=== PATIENT | female | born 1980 | race Two or more races ===

== ENCOUNTER 2016-07-08 01:26 | Emergency (ER) | payer OTHER ==
[2016-07-08] MEDS ORDERED: traMADol 50 MG TAB As Ordered ONE (01:54)
[2016-07-08] MEDS ORDERED: AMOXICILLIN 500 MG CAP As Ordered ONE (01:55)
--- NOTE | 2016-07-08 02:23 | EDDOCDS ---
Physician Documentation [facility] Name: Shanae Sutton Age: 35 yrs Sex: Female : 1980 Arrival Date: 07/08/2016 Time: 01:26 Bed I2 / M2 Private MD: Disposition: 07/08/16 01:53 Discharged to Home/Self Care. Impression: Periapical abscess without sinus. - Condition is Stable. - Discharge Instructions: Dental Abscess. - Prescriptions for Amoxicillin 500 mg Oral Capsule - take 1 capsule by ORAL route every 8 hours for 10 days; 30 tablet. Ibuprofen 600 mg Oral Tablet - take 1 tablet by ORAL route every 6 hours As needed take with food; 30 tablet. Tramadol 50 mg Oral Tablet - take 1 tablet by ORAL route 4 times per day As needed MDD: 4 tabs; 6 tablet. - Medication Reconciliation, Local Pharmacy Hours form. - Follow up: Your, Dentist; When: 1 - 2 days; Reason: Recheck today's complaints, Continuance of care. - Problem is new. - Symptoms have improved. Historical: - Allergies: Cats; Dogs; No known drug Allergies; - Home Meds: 1. Motrin Oral Unknown (Last dose: 07/08/2016 00:00) 2. Effexor 75 mg Oral tab 1 tab nightly - PMHx: Anxiety; - PSHx: Dental work; - Social history: Smoking status: Patient states was never smoker of tobacco. No barriers to communication noted, The patient speaks fluent Pashto, Speaks appropriately for age. - Family history: Not pertinent. - : The pt / caregiver states he / she is not on anticoagulants. Home medication list is obtained from the patient. - Exposure Risk Screening:: None identified. 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 3 in. (160.02 cm) (R); 02:11 BP 113 / 77; Pulse 80; Resp 18; Temp 98.2; Pulse Ox 98% ; Pain 8/10; mlc 01:29 Body Mass Index 21.61 (55.34 kg, 160.02 cm) ld5 MDM: 01:47 Financial registration complete. pm4 01:53 traMADol 50mg- 4 pack 1 packets PO Per protocol; Dispense with patient. Take per ck7 package instructions. ordered. 01:53 Amoxicillin 500 mg PO once ordered. ck7 01:54 [facility] Payment Agreement was scanned into [employer] and attached to record. pm4 Administered Medications: 02:11 Drug: traMADol 50mg- 4 pack 1 packets [tramadol 50 mg tablet (1 tabs)] {Co-Signature: [facility] rw1 (Jorge Platt LPN).} Route: PO; 02:11 Follow up: Response: Med's dispensed home [facility] 02:11 Drug: Amoxicillin 500 mg [amoxicillin 500 mg capsule (1 caps)] Route: PO; [facility] 02:11 Follow up: Response: Pt left department before re-evaluation is appropriate [facility] Signatures: Helena Castrejon RN RN ld5 Reza Partida, RPA-C RPA-Cck7 Aylin Munoz RN RN [facility] Js Joiner, Reg Reg pm4 Jorge Platt LPN rw1 The chart was reviewed and I authenticate all verbal orders and agree with the evaluation and treatment provided.Attachments: 01:54 [facility] Payment Agreement pm4 MTDD
--- NOTE | 2016-07-08 02:23 | EDDOCDS ---
Nurse's Notes [facility] Name: Shanae Sutton Age: 35 yrs Sex: Female : 1980 Arrival Date: 07/08/2016 Time: 01:26 Bed I2 / M2 Private MD: Diagnosis: Periapical abscess without sinus Presentation: 07/08 01:30 Presenting complaint: Patient states: Pt had a root canal about a month ago. Pt started ld5 to same area approximately 2 days ago. Presents to ER with increasing pain. Pt tried Motrin with no relief. Adult Sepsis Screening: The patient does not have new or worsening altered mentation. Patient's respiratory rate is less than 22. Systolic blood pressure is greater than 100. Patient has a qSOFA score of 0- Negative Sepsis Screen. Suicide/Homicide risk assessment- the patient denies having any suicidal and/or homicidal ideations and does not present with any other emotional, behavioral or mental health complaints. Status: The patient is a dependent. Transition of care: patient was not received from another setting of care. 01:30 Acuity: ERIKA Level 4 ld5 01:30 Method Of Arrival: Walkin/Carried/Asstd ld5 Triage Assessment: 01:33 General: Appears in no apparent distress. Pain: Location: lower left third molar and ld5 lower left second molar Pain currently is 9 out of 10 on a pain scale. HIV screening NA for this visit Offered previously. Neurological: Level of Consciousness is awake, alert. EENT: Reports pain in mouth. 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 Motrin Oral Unknown (Last dose: 07/08/2016 00:00) 2. Effexor 75 mg Oral tab 1 tab nightly - PMHx: Anxiety; - PSHx: Dental work; - Social history: Smoking status: Patient states was never smoker of tobacco. No barriers to communication noted, The patient speaks fluent Malay, Speaks appropriately for age. - Family history: Not pertinent. - : The pt / caregiver states he / she is not on anticoagulants. Home medication list is obtained from the patient. - Exposure Risk Screening:: None identified. Screenin:11 Screening information is obtained from the patient. Fall risk: No risks identified. mlc Assistance ADL's: requires no assistance with activities of daily living. Abuse/DV Screen: The patient / caregiver reports he/she is: not in a situation that causes fear, pain or injury. Nutritional screening: No deficits noted. Advance Directives: Currently, there is no health care proxy. home support is adequate. Assessment: 02:11 General: Appears in no apparent distress, comfortable, Behavior is cooperative. Pain: [facility] Pain currently is 8 out of 10 on a pain scale. Neurological: Level of Consciousness is awake, alert, Oriented to person, place, time. Respiratory: Airway is patent Respiratory effort is even, unlabored, Respiratory pattern is regular. Derm: Skin is pink, warm & dry. Vital Signs: 01:29 BP 128 / 69; Pulse 71; Resp 16; Temp 97.7(O); Pulse Ox 99% on R/A; Weight 55.34 kg (R); ld5 Height 5 ft. 3 in. (160.02 cm) (R); 02:11 BP 113 / 77; Pulse 80; Resp 18; Temp 98.2; Pulse Ox 98% ; Pain 8/10; mlc 01:29 Body Mass Index 21.61 (55.34 kg, 160.02 cm) ld5 Vitals: 01:29 Log In Time: July 08, 2016 at 01:27. ld5 ED Course: 01:27 Patient visited by Nevin Antony Reg. hs2 01:27 Patient moved to Waiting hs2 01:31 Triage Initiated ld5 01:35 Patient visited by Helena Castrejon RN. ld5 01:35 Reza Partida RPA-C is PHCP. ck7 01:35 Sophie Mcgrath MD is Attending Physician. ck7 01:35 Patient visited by Reza Partida RPA-C. ck7 01:35 Patient moved to I2 / M2 ld5 01:53 Your, Dentist is Referral Physician. ck7 01:54 Patient name changed from Shanae\S\\S\Carvalheira\S\ to Shanae\S\Devi\S\Carvalheira. EDMS 01:54 [facility] Payment Agreement was scanned into [employer] and attached to record. pm4 02:11 The patient / caregiver is instructed regarding the plan of care and ED course. mlc 02:11 No IV's were initiated during this patient's visit. No procedures done that require mlc assistance. Administered Medications: 02:11 Drug: traMADol 50mg- 4 pack 1 packets [tramadol 50 mg tablet (1 tabs)] {Co-Signature: [facility] rw1 (Jorge Platt LPN).} Route: PO; 02:11 Follow up: Response: Med's dispensed home [facility] 02:11 Drug: Amoxicillin 500 mg [amoxicillin 500 mg capsule (1 caps)] Route: PO; [facility] 02:11 Follow up: Response: Pt left department before re-evaluation is appropriate mlc Order Results: There are currently no results for this order. Outcome: 01:53 Discharge ordered by Provider. ck7 02:11 Discharge Assessment: Patient awake, alert and oriented x 3. No cognitive and/or mlc functional deficits noted. Patient verbalized understanding of disposition instructions. patient administered narcotics - no. The following High Risk Discharge criteria are identified: None. Discharged to home ambulatory. Condition: good Condition: stable. Discharge instructions given to patient, Instructed on discharge instructions, follow up and referral plans. medication usage, no driving heavy equipment, Demonstrated understanding of instructions, medications, Pt was receptive of discharge instructions/ teaching. Prescriptions given X 3. No special radiology studies were completed. Property sent home with patient. 02:21 Patient left the ED. [facility] Signatures: Dispatcher [employer] EDHelena Gould,SHERIE REHMAN ld5 Reza Partida, RPA-C RPA-Cck7 Aylin Munoz RN RN mlc Stanton, Hillary, Reg Reg hs2 Js Joiner, Reg Reg pm4 Jorge Platt LPN rw1 MTDD
--- NOTE | 2016-07-10 03:23 | EDDOCDS ---
Physician Documentation [facility] Name: Shanae Sutton Age: 35 yrs Sex: Female : 1980 Arrival Date: 07/08/2016 Time: 01:26 Bed I2 / M2 Private MD: Disposition: 07/08/16 01:53 Discharged to Home/Self Care. Impression: Periapical abscess without sinus. - Condition is Stable. - Discharge Instructions: Dental Abscess. - Prescriptions for Amoxicillin 500 mg Oral Capsule - take 1 capsule by ORAL route every 8 hours for 10 days; 30 tablet. Ibuprofen 600 mg Oral Tablet - take 1 tablet by ORAL route every 6 hours As needed take with food; 30 tablet. Tramadol 50 mg Oral Tablet - take 1 tablet by ORAL route 4 times per day As needed MDD: 4 tabs; 6 tablet. - Medication Reconciliation, Local Pharmacy Hours form. - Follow up: Your, Dentist; When: 1 - 2 days; Reason: Recheck today's complaints, Continuance of care. - Problem is new. - Symptoms have improved. Historical: - Allergies: Cats; Dogs; No known drug Allergies; - Home Meds: 1. Motrin Oral Unknown (Last dose: 07/08/2016 00:00) 2. Effexor 75 mg Oral tab 1 tab nightly - PMHx: Anxiety; - PSHx: Dental work; - Social history: Smoking status: Patient states was never smoker of tobacco. No barriers to communication noted, The patient speaks fluent Slovak, Speaks appropriately for age. - Family history: Not pertinent. - : The pt / caregiver states he / she is not on anticoagulants. Home medication list is obtained from the patient. - Exposure Risk Screening:: None identified. 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 3 in. (160.02 cm) (R); 02:11 BP 113 / 77; Pulse 80; Resp 18; Temp 98.2; Pulse Ox 98% ; Pain 8/10; mlc 01:29 Body Mass Index 21.61 (55.34 kg, 160.02 cm) ld5 MDM: 01:47 Financial registration complete. pm4 01:53 traMADol 50mg- 4 pack 1 packets PO Per protocol; Dispense with patient. Take per ck7 package instructions. ordered. 01:53 Amoxicillin 500 mg PO once ordered. ck7 01:54 [facility] Payment Agreement was scanned into [employer] and attached to record. pm4 14:58 T-Sheet-- Draft Copy was scanned into [employer] and attached to record. gb Administered Medications: 02:11 Drug: traMADol 50mg- 4 pack 1 packets [tramadol 50 mg tablet (1 tabs)] {Co-Signature: [facility] rw1 (Jorge Platt LPN).} Route: PO; 02:11 Follow up: Response: Med's dispensed home [facility] 02:11 Drug: Amoxicillin 500 mg [amoxicillin 500 mg capsule (1 caps)] Route: PO; [facility] 02:11 Follow up: Response: Pt left department before re-evaluation is appropriate [facility] Signatures: Gely Ware, Reg Reg gb Helena Castrejon RN RN ld5 Reza Partida, RPA-C RPA-Cck7 Aylin Munoz RN RN mlc Js Joiner, Reg Reg pm4 Jorge Platt LPN rw1 The chart was reviewed and I authenticate all verbal orders and agree with the evaluation and treatment provided.Attachments: 01:54 [facility] Payment Agreement pm4 14:58 T-Sheet-- Draft Copy gb Chart Complete MTDD
--- NOTE | 2016-07-10 03:23 | EDDOCDS ---
Nurse's Notes [facility] Name: Shanae Sutton Age: 35 yrs Sex: Female : 1980 Arrival Date: 07/08/2016 Time: 01:26 Bed I2 / M2 Private MD: Diagnosis: Periapical abscess without sinus Presentation: 07/08 01:30 Presenting complaint: Patient states: Pt had a root canal about a month ago. Pt started ld5 to same area approximately 2 days ago. Presents to ER with increasing pain. Pt tried Motrin with no relief. Adult Sepsis Screening: The patient does not have new or worsening altered mentation. Patient's respiratory rate is less than 22. Systolic blood pressure is greater than 100. Patient has a qSOFA score of 0- Negative Sepsis Screen. Suicide/Homicide risk assessment- the patient denies having any suicidal and/or homicidal ideations and does not present with any other emotional, behavioral or mental health complaints. Status: The patient is a dependent. Transition of care: patient was not received from another setting of care. 01:30 Acuity: ERIKA Level 4 ld5 01:30 Method Of Arrival: Walkin/Carried/Asstd ld5 Triage Assessment: 01:33 General: Appears in no apparent distress. Pain: Location: lower left third molar and ld5 lower left second molar Pain currently is 9 out of 10 on a pain scale. HIV screening NA for this visit Offered previously. Neurological: Level of Consciousness is awake, alert. EENT: Reports pain in mouth. 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 Motrin Oral Unknown (Last dose: 07/08/2016 00:00) 2. Effexor 75 mg Oral tab 1 tab nightly - PMHx: Anxiety; - PSHx: Dental work; - Social history: Smoking status: Patient states was never smoker of tobacco. No barriers to communication noted, The patient speaks fluent Azeri, Speaks appropriately for age. - Family history: Not pertinent. - : The pt / caregiver states he / she is not on anticoagulants. Home medication list is obtained from the patient. - Exposure Risk Screening:: None identified. Screenin:11 Screening information is obtained from the patient. Fall risk: No risks identified. mlc Assistance ADL's: requires no assistance with activities of daily living. Abuse/DV Screen: The patient / caregiver reports he/she is: not in a situation that causes fear, pain or injury. Nutritional screening: No deficits noted. Advance Directives: Currently, there is no health care proxy. home support is adequate. Assessment: 02:11 General: Appears in no apparent distress, comfortable, Behavior is cooperative. Pain: [facility] Pain currently is 8 out of 10 on a pain scale. Neurological: Level of Consciousness is awake, alert, Oriented to person, place, time. Respiratory: Airway is patent Respiratory effort is even, unlabored, Respiratory pattern is regular. Derm: Skin is pink, warm & dry. Vital Signs: 01:29 BP 128 / 69; Pulse 71; Resp 16; Temp 97.7(O); Pulse Ox 99% on R/A; Weight 55.34 kg (R); ld5 Height 5 ft. 3 in. (160.02 cm) (R); 02:11 BP 113 / 77; Pulse 80; Resp 18; Temp 98.2; Pulse Ox 98% ; Pain 8/10; mlc 01:29 Body Mass Index 21.61 (55.34 kg, 160.02 cm) ld5 Vitals: 01:29 Log In Time: July 08, 2016 at 01:27. ld5 ED Course: 01:27 Patient visited by Nevin Antony Reg. hs2 01:27 Patient moved to Waiting hs2 01:31 Triage Initiated ld5 01:35 Patient visited by Helena Castrejon RN. ld5 01:35 Reza Partida RPA-C is PHCP. ck7 01:35 Sophie Mcgrath MD is Attending Physician. ck7 01:35 Patient visited by Reza Partida RPA-C. ck7 01:35 Patient moved to I2 / M2 ld5 01:53 Your, Dentist is Referral Physician. ck7 01:54 Patient name changed from Shanae\S\\S\Carvalheira\S\ to Shanae\S\Devi\S\Carvalheira. EDMS 01:54 [facility] [place] Payment Agreement was scanned into [employer] and attached to record. pm4 02:11 The patient / caregiver is instructed regarding the plan of care and ED course. mlc 02:11 No IV's were initiated during this patient's visit. No procedures done that require mlc assistance. 14:58 T-Sheet-- Draft Copy was scanned into [employer] and attached to record. gb Administered Medications: 02:11 Drug: traMADol 50mg- 4 pack 1 packets [tramadol 50 mg tablet (1 tabs)] {Co-Signature: navneet rw1 (Jorge Platt LPN).} Route: PO; 02:11 Follow up: Response: Med's dispensed [place] [facility] 02:11 Drug: Amoxicillin 500 mg [amoxicillin 500 mg capsule (1 caps)] Route: PO; [facility] 02:11 Follow up: Response: Pt left department before re-evaluation is appropriate mlc Order Results: There are currently no results for this order. Outcome: 01:53 Discharge ordered by Provider. ck7 02:11 Discharge Assessment: Patient awake, alert and oriented x 3. No cognitive and/or mlc functional deficits noted. Patient verbalized understanding of disposition instructions. patient administered narcotics - no. The following High Risk Discharge criteria are identified: None. Discharged to home ambulatory. Condition: good Condition: stable. Discharge instructions given to patient, Instructed on discharge instructions, follow up and referral plans. medication usage, no driving heavy equipment, Demonstrated understanding of instructions, medications, Pt was receptive of discharge instructions/ teaching. Prescriptions given X 3. No special radiology studies were completed. Property sent home with patient. 02:21 Patient left the ED. [facility] Signatures: [facility] Gely Ware, Reg Reg gb Helena Castrejon RN RN ld5 Reza Partida, RPA-C RPA-Cck7 Aylin Munoz RN RN mlc Stanton, Hillary, Reg Reg hs2 Js Joiner, Reg Reg pm4 Jorge Platt LPN rw1 Chart Complete MTDD
--- NOTE | 2016-07-10 03:23 | EDDOCDS ---
Physician Documentation [facility] Name: Shanae Sutton Age: 35 yrs Sex: Female : 1980 Arrival Date: 07/08/2016 Time: 01:26 Bed I2 / M2 Private MD: Disposition: 07/08/16 01:53 Discharged to Home/Self Care. Impression: Periapical abscess without sinus. - Condition is Stable. - Discharge Instructions: Dental Abscess. - Prescriptions for Amoxicillin 500 mg Oral Capsule - take 1 capsule by ORAL route every 8 hours for 10 days; 30 tablet. Ibuprofen 600 mg Oral Tablet - take 1 tablet by ORAL route every 6 hours As needed take with food; 30 tablet. Tramadol 50 mg Oral Tablet - take 1 tablet by ORAL route 4 times per day As needed MDD: 4 tabs; 6 tablet. - Medication Reconciliation, Local Pharmacy Hours form. - Follow up: Your, Dentist; When: 1 - 2 days; Reason: Recheck today's complaints, Continuance of care. - Problem is new. - Symptoms have improved. Historical: - Allergies: Cats; Dogs; No known drug Allergies; - Home Meds: 1. Motrin Oral Unknown (Last dose: 07/08/2016 00:00) 2. Effexor 75 mg Oral tab 1 tab nightly - PMHx: Anxiety; - PSHx: Dental work; - Social history: Smoking status: Patient states was never smoker of tobacco. No barriers to communication noted, The patient speaks fluent Khmer, Speaks appropriately for age. - Family history: Not pertinent. - : The pt / caregiver states he / she is not on anticoagulants. Home medication list is obtained from the patient. - Exposure Risk Screening:: None identified. 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 3 in. (160.02 cm) (R); 02:11 BP 113 / 77; Pulse 80; Resp 18; Temp 98.2; Pulse Ox 98% ; Pain 8/10; mlc 01:29 Body Mass Index 21.61 (55.34 kg, 160.02 cm) ld5 MDM: 01:47 Financial registration complete. pm4 01:53 traMADol 50mg- 4 pack 1 packets PO Per protocol; Dispense with patient. Take per ck7 package instructions. ordered. 01:53 Amoxicillin 500 mg PO once ordered. ck7 01:54 [facility] Payment Agreement was scanned into [employer] and attached to record. pm4 14:58 T-Sheet-- Draft Copy was scanned into [employer] and attached to record. gb Administered Medications: 02:11 Drug: traMADol 50mg- 4 pack 1 packets [tramadol 50 mg tablet (1 tabs)] {Co-Signature: [facility] [place] [place] rw1 (Jorge Platt LPN).} Route: PO; 02:11 Follow up: Response: Med's dispensed home [facility] [place] [place] 02:11 Drug: Amoxicillin 500 mg [amoxicillin 500 mg capsule (1 caps)] Route: PO; [facility] [place] [place] 02:11 Follow up: Response: Pt left department before re-evaluation is appropriate [facility] [place] [place] Signatures: Gely Ware, Reg Reg gb Helena Castrejon RN RN ld5 Reza Partida, RPA-C RPA-Cck7 Aylin Munoz RN RN mlc Js Joiner, Reg Reg pm4 Jorge Platt LPN rw1 The chart was reviewed and I authenticate all verbal orders and agree with the evaluation and treatment provided.Attachments: 01:54 [facility] Payment Agreement pm4 14:58 T-Sheet-- Draft Copy gb Chart Complete MTDD
== END 2016-07-08 02:21 | disposition home or self-care (01) ==
LOC: M ED 01:26
DX: K04.7 Periapical abscess without sinus (principal); F41.9 Anxiety disorder, unspecified; Z79.899 Other long term (current) drug therapy; J30.81 Allergic rhinitis due to animal (cat) (dog) hair and dander

== ENCOUNTER 2016-07-08 06:54 | Emergency (ER) | payer OTHER ==
--- NOTE | 2016-07-08 07:37 | EDDOCDS ---
Physician Documentation [facility] Name: Shanae Sutton Age: 35 yrs Sex: Female : 1980 Arrival Date: 07/08/2016 Time: 06:54 Bed I2 / M2 Private MD: Disposition: 07/08/16 07:30 Discharged to Home/Self Care. Impression: Dental procedure status - post procedural pain. - Condition is Stable. - Discharge Instructions: Dental Pain, [id number]. - Medication Reconciliation, Local Pharmacy Hours form. - Follow up: Your, Dentist; When: Call to arrange an appointment; Reason: Further diagnostic work-up, Recheck today's complaints, Continuance of care. - Problem is an ongoing problem. - Symptoms are unchanged. Historical: - Allergies: cats; dogs; - Home Meds: 1. Effexor 75 mg Oral tab 1 tab nightly 2. tramadol 50 mg Oral tab 1 tab every 6 hours (Last dose: 07/08/2016 03:00) 3. Motrin Oral Unknown - PMHx: Anxiety; - PSHx: Dental work; - Social history: Smoking status: Patient states was never smoker of tobacco. No barriers to communication noted, The patient speaks fluent Welsh. - Family history: Not pertinent. - : The pt / caregiver states he / she is not on anticoagulants. Home medication list is obtained from the patient. - Exposure Risk Screening:: None identified. 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 3 in. (160.02 cm); Pain 10/10; 07:04 Body Mass Index 21.61 (55.34 kg, 160.02 cm) mlc Signatures: Gerald Lai,RN RN Chava Martino PA PA btw Booth, Mandy,RN RN [facility] [place] MTDD
--- NOTE | 2016-07-08 07:37 | EDDOCDS ---
Nurse's Notes [facility] Name: Shanae Sutton Age: 35 yrs Sex: Female : 1980 Arrival Date: 07/08/2016 Time: 06:54 Bed I2 / M2 Private MD: Diagnosis: Dental procedure status-post procedural pain Presentation: 07/08 07:02 Presenting complaint: Patient states: pt was seen here last night for toothache. pt mlc states prescribed medication did not relieve the pain. pt reports increase in pain. Adult Sepsis Screening: The patient does not have new or worsening altered mentation. Patient's respiratory rate is less than 22. Systolic blood pressure is greater than 100. Patient has a qSOFA score of 0- Negative Sepsis Screen. Suicide/Homicide risk assessment- the patient denies having any suicidal and/or homicidal ideations and does not present with any other emotional, behavioral or mental health complaints. Status: The patient is a dependent. Transition of care: patient was not received from another setting of care. 07:02 Acuity: ERIKA Level 5 [facility] 07:02 Method Of Arrival: Walkin/Carried/Asstd mlc Triage Assessment: 07:04 General: Appears in no apparent distress, uncomfortable, Behavior is cooperative, mlc crying. Pain: Location: lower left third molar, lower left second molar and lower left first molar Pain currently is 10 out of 10 on a pain scale. HIV screening NA for this visit Offered previously. The patient is triaged at the bedside. See Assessment in Nurses Notes section of ED record. Neurological: Level of Consciousness is awake, alert, obeys commands, Oriented to person, place, time. EENT: Reports pain in lower left third molar, lower left second molar and lower left first molar. Respiratory: Airway is patent Respiratory effort is even, unlabored, Respiratory pattern is regular. 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 Effexor 75 mg Oral tab 1 tab nightly 2. tramadol 50 mg Oral tab 1 tab every 6 hours (Last dose: 07/08/2016 03:00) 3. Motrin Oral Unknown - PMHx: Anxiety; - PSHx: Dental work; - Social history: Smoking status: Patient states was never smoker of tobacco. No barriers to communication noted, The patient speaks fluent Armenian. - Family history: Not pertinent. - : The pt / caregiver states he / she is not on anticoagulants. Home medication list is obtained from the patient. - Exposure Risk Screening:: None identified. Screenin:34 Screening information is obtained from the patient. Fall risk: No risks identified. jmk Assistance ADL's: requires no assistance with activities of daily living. Abuse/DV Screen: The patient / caregiver reports he/she is: not in a situation that causes fear, pain or injury. Nutritional screening: No deficits noted. Advance Directives: Currently, there is no health care proxy. There is no active DNR order. There is no living will. There is no Power of Ticket Marker. Advance directive information has not previously been placed in an [facility] medical record. home support is adequate. Assessment: 07:23 General: Appears skin warm and dry color satisfactory. teary. indicates discomfort to jmk left side of face. without redness or increased warmth. reports last dose of oral med 0430 without effect. declined comfort measures when offered... Vital Signs: 07:04 BP 163 / 101; Pulse 77; Resp 20; Temp 96.2(O); Pulse Ox 97% ; Weight 55.34 kg; Height 5 [facility] ft. 3 in. (160.02 cm); Pain 10/10; 07:04 Body Mass Index 21.61 (55.34 kg, 160.02 cm) [facility] Vitals: 07:04 Log In Time: July 08, 2016 at 06:55. [facility] ED Course: 06:55 Patient visited by Nevin Antony Reg. hs2 06:55 Patient moved to Waiting hs2 07:04 Triage Initiated [facility] 07:08 Patient visited by Aylin Munoz RN. [facility] 07:10 Patient moved to I2 / M2 [facility] 07:16 Chava Solis PA is PHCP. btw 07:16 Jan Pérez MD is Attending Physician. btw 07:25 Patient visited by Chava Solis PA. btw 07:29 Your, Dentist is Referral Physician. btw 07:34 The patient / caregiver is instructed regarding the plan of care and ED course. jmk 07:34 No IV's were initiated during this patient's visit. No procedures done that require jmk assistance. Order Results: There are currently no results for this order. Outcome: 07:30 Discharge ordered by Provider. btw 07:34 Discharge Assessment: Patient awake, alert and oriented x 3. No cognitive and/or kindrak functional deficits noted. Patient verbalized understanding of disposition instructions. Discharge Assessment: patient administered narcotics - no. The following High Risk Discharge criteria are identified: None. Discharged to home ambulatory. Condition: good. No special radiology studies were completed. Property :Personal belongings accompany Pt. 07:35 Patient left the ED. [facility] Signatures: Gerald Lai,RN RN Chava Martino PA PA btw Aylin Munoz,RN RN Nevin Gayle, Reg Reg hs2 MTDD
--- NOTE | 2016-07-10 08:36 | EDDOCDS ---
Physician Documentation [facility] Name: Shanae Sutton Age: 35 yrs Sex: Female : 1980 Arrival Date: 07/08/2016 Time: 06:54 Bed I2 / M2 Private MD: Disposition: 07/08/16 07:30 Discharged to Home/Self Care. Impression: Dental procedure status - post procedural pain. - Condition is Stable. - Discharge Instructions: Dental Pain, [id number]. - Medication Reconciliation, Local Pharmacy Hours form. - Follow up: Your, Dentist; When: Call to arrange an appointment; Reason: Further diagnostic work-up, Recheck today's complaints, Continuance of care. - Problem is an ongoing problem. - Symptoms are unchanged. Historical: - Allergies: cats; dogs; - Home Meds: 1. Effexor 75 mg Oral tab 1 tab nightly 2. tramadol 50 mg Oral tab 1 tab every 6 hours (Last dose: 07/08/2016 03:00) 3. Motrin Oral Unknown - PMHx: Anxiety; - PSHx: Dental work; - Social history: Smoking status: Patient states was never smoker of tobacco. No barriers to communication noted, The patient speaks fluent Yoruba. - Family history: Not pertinent. - : The pt / caregiver states he / she is not on anticoagulants. Home medication list is obtained from the patient. - Exposure Risk Screening:: None identified. 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 3 in. (160.02 cm); Pain 10/10; 07:04 Body Mass Index 21.61 (55.34 kg, 160.02 cm) mlc MDM: 14:59 T-Sheet-- Draft Copy was scanned into [employer] and attached to record. gb Signatures: Gerald Lai,RN RN Gely Guerreor, Reg Reg gb Chava Solis PA PA btw Booth, Mandy, RN RN [facility] [place] The chart was reviewed and I authenticate all verbal orders and agree with the evaluation and treatment provided.Attachments: 14:59 T-Sheet-- Draft Copy gb Chart Complete MTDD
--- NOTE | 2016-07-10 08:36 | EDDOCDS ---
Physician Documentation [facility] Name: Shanae Sutton Age: 35 yrs Sex: Female : 1980 Arrival Date: 07/08/2016 Time: 06:54 Bed I2 / M2 Private MD: Disposition: 07/08/16 07:30 Discharged to Home/Self Care. Impression: Dental procedure status - post procedural pain. - Condition is Stable. - Discharge Instructions: Dental Pain, [id number]. - Medication Reconciliation, Local Pharmacy Hours form. - Follow up: Your, Dentist; When: Call to arrange an appointment; Reason: Further diagnostic work-up, Recheck today's complaints, Continuance of care. - Problem is an ongoing problem. - Symptoms are unchanged. Historical: - Allergies: cats; dogs; - Home Meds: 1. Effexor 75 mg Oral tab 1 tab nightly 2. tramadol 50 mg Oral tab 1 tab every 6 hours (Last dose: 07/08/2016 03:00) 3. Motrin Oral Unknown - PMHx: Anxiety; - PSHx: Dental work; - Social history: Smoking status: Patient states was never smoker of tobacco. No barriers to communication noted, The patient speaks fluent Telugu. - Family history: Not pertinent. - : The pt / caregiver states he / she is not on anticoagulants. Home medication list is obtained from the patient. - Exposure Risk Screening:: None identified. 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 3 in. (160.02 cm); Pain 10/10; 07:04 Body Mass Index 21.61 (55.34 kg, 160.02 cm) mlc MDM: 14:59 T-Sheet-- Draft Copy was scanned into [employer] and attached to record. gb Signatures: Gerald Lai,RN RN Gely Guerrero, Reg Reg gb Chava Solis PA PA btw Booth, Mandy, RN RN [facility] [place] The chart was reviewed and I authenticate all verbal orders and agree with the evaluation and treatment provided.Attachments: 14:59 T-Sheet-- Draft Copy gb Chart Complete MTDD
--- NOTE | 2016-07-10 08:36 | EDDOCDS ---
Nurse's Notes [facility] Name: Shanae Sutton Age: 35 yrs Sex: Female : 1980 Arrival Date: 07/08/2016 Time: 06:54 Bed I2 / M2 Private MD: Diagnosis: Dental procedure status-post procedural pain Presentation: 07/08 07:02 Presenting complaint: Patient states: pt was seen here last night for toothache. pt mlc states prescribed medication did not relieve the pain. pt reports increase in pain. Adult Sepsis Screening: The patient does not have new or worsening altered mentation. Patient's respiratory rate is less than 22. Systolic blood pressure is greater than 100. Patient has a qSOFA score of 0- Negative Sepsis Screen. Suicide/Homicide risk assessment- the patient denies having any suicidal and/or homicidal ideations and does not present with any other emotional, behavioral or mental health complaints. Status: The patient is a dependent. Transition of care: patient was not received from another setting of care. 07:02 Acuity: ERIKA Level 5 [facility] 07:02 Method Of Arrival: Walkin/Carried/Asstd mlc Triage Assessment: 07:04 General: Appears in no apparent distress, uncomfortable, Behavior is cooperative, mlc crying. Pain: Location: lower left third molar, lower left second molar and lower left first molar Pain currently is 10 out of 10 on a pain scale. HIV screening NA for this visit Offered previously. The patient is triaged at the bedside. See Assessment in Nurses Notes section of ED record. Neurological: Level of Consciousness is awake, alert, obeys commands, Oriented to person, place, time. EENT: Reports pain in lower left third molar, lower left second molar and lower left first molar. Respiratory: Airway is patent Respiratory effort is even, unlabored, Respiratory pattern is regular. 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 Effexor 75 mg Oral tab 1 tab nightly 2. tramadol 50 mg Oral tab 1 tab every 6 hours (Last dose: 07/08/2016 03:00) 3. Motrin Oral Unknown - PMHx: Anxiety; - PSHx: Dental work; - Social history: Smoking status: Patient states was never smoker of tobacco. No barriers to communication noted, The patient speaks fluent Swedish. - Family history: Not pertinent. - : The pt / caregiver states he / she is not on anticoagulants. Home medication list is obtained from the patient. - Exposure Risk Screening:: None identified. Screenin:34 Screening information is obtained from the patient. Fall risk: No risks identified. jmk Assistance ADL's: requires no assistance with activities of daily living. Abuse/DV Screen: The patient / caregiver reports he/she is: not in a situation that causes fear, pain or injury. Nutritional screening: No deficits noted. Advance Directives: Currently, there is no health care proxy. There is no active DNR order. There is no living will. There is no Power of Hander In. Advance directive information has not previously been placed in an [facility] medical record. home support is adequate. Assessment: 07:23 General: Appears skin warm and dry color satisfactory. teary. indicates discomfort to jmk left side of face. without redness or increased warmth. reports last dose of oral med 0430 without effect. declined comfort measures when offered... Vital Signs: 07:04 BP 163 / 101; Pulse 77; Resp 20; Temp 96.2(O); Pulse Ox 97% ; Weight 55.34 kg; Height 5 [facility] ft. 3 in. (160.02 cm); Pain 10/10; 07:04 Body Mass Index 21.61 (55.34 kg, 160.02 cm) [facility] Vitals: 07:04 Log In Time: July 08, 2016 at 06:55. [facility] ED Course: 06:55 Patient visited by Nevin Antony Reg. hs2 06:55 Patient moved to Waiting hs2 07:04 Triage Initiated [facility] 07:08 Patient visited by Aylin Munoz RN. [facility] 07:10 Patient moved to I2 / M2 [facility] 07:16 Chava Solis PA is PHCP. btw 07:16 Jan éPrez MD is Attending Physician. btw 07:25 Patient visited by Chava Solis PA. btw 07:29 Your, Dentist is Referral Physician. btw 07:34 The patient / caregiver is instructed regarding the plan of care and ED course. jmk 07:34 No IV's were initiated during this patient's visit. No procedures done that require k assistance. 14:59 T-Sheet-- Draft Copy was scanned into [employer] and attached to record. Order Results: There are currently no results for this order. Outcome: 07:30 Discharge ordered by Provider. btw 07:34 Discharge Assessment: Patient awake, alert and oriented x 3. No cognitive and/or k functional deficits noted. Patient verbalized understanding of disposition instructions. Discharge Assessment: patient administered narcotics - no. The following High Risk Discharge criteria are identified: None. Discharged to home ambulatory. Condition: good. No special radiology studies were completed. Property :Personal belongings accompany Pt. 07:35 Patient left the ED. jeffrey Signatures: Gerald Lai,RN RN Gely Guerrero, Reg Reg gb Chava Solis PA PA btw Booth, Mandy,Nevin Vogt RN, Reg Reg hs2 Chart Complete ZECHARIAH
== END 2016-07-08 07:35 | disposition home or self-care (01) ==
LOC: M ED 06:54
DX: K08.9 Disorder of teeth and supporting structures, unspecified (principal); F41.9 Anxiety disorder, unspecified; Z79.899 Other long term (current) drug therapy; J30.81 Allergic rhinitis due to animal (cat) (dog) hair and dander

== ENCOUNTER 2017-05-21 20:51 | Emergency (ER) | payer OTHER ==
[~2017-05-21] VITALS: Ht 160 cm; Wt 54.5 kg
[2017-05-21 20:54] VITALS: BP 112/81
[2017-05-21] MEDS ORDERED: EFFE75CA75 PO (21:04)
== END 2017-05-21 22:30 | disposition left against medical advice (07) ==
LOC: M ED 20:51
DX: R10.2 Pelvic and perineal pain (principal); F41.9 Anxiety disorder, unspecified; Z79.899 Other long term (current) drug therapy

== ENCOUNTER → 2017-05-21 | Outpatient (REF) | payer OTHER ==
[~2017-05-21] MED LIST: EFFE75CA75 PO
== END ==
LOC: M SFHCLERA 19:28
PROVIDERS: ATTEND Nurse Practitioner Family
DX: R10.9 Unspecified abdominal pain (principal)

== ENCOUNTER → 2017-07-12 | Outpatient (REF) | payer OTHER ==
[2017-07-12 17:02] LABS: INFLUENZA A AMPLIFICATION POSITIVE (NEGATIVE); INFLUENZA B AMPLIFICATION NEGATIVE (NEGATIVE)
== END ==
LOC: M SFHCLERA 14:27
DX: Z01.89 Encounter for other specified special examinations (principal); R53.81 Other malaise
CPT/HCPCS: 87502

== ENCOUNTER → 2018-01-10 | Outpatient (REF) | payer OTHER ==
[2018-01-12 15:25] LABS: HPV HYBRID CAPTURE II Negative (Negative)
== END ==
LOC: M LAB REF 17:32
DX: Z12.4 Encounter for screening for malignant neoplasm of cervix (principal)
CPT/HCPCS: G0123

== ENCOUNTER → 2018-04-23 | Outpatient (CLI) | payer OTHER ==
[2018-04-23 12:57] LABS: BASO % 0.4 % (0.0-1.0); EOS # 0.1 10^3/uL (0.0-0.50); EOS % 1.7 % (0.0-3.0); HEMATOCRIT 37.7 % (36.0-47.0); HEMOGLOBIN 12.4 g/dl (12.0-15.5); IMMATURE GRANULOCYTE % 0.2 % (0-3.0); LYMPH # 1.8 10^3/uL (1.5-4.5); LYMPH % 38.8 % (24.0-44.0); MEAN CORPUSCULAR HGB CONC 32.9 g/dl (32.0-36.5); MEAN CORPUSCULAR VOLUME 91.3 fl (80.0-96.0); MONO # 0.4 10^3/uL (0.0-0.8); MONO % 7.8 % (0.0-5.0); NEUTROPHILS # 2.3 10^3/uL (1.8-7.7); NEUTROPHILS % 51.1 % (36.0-66.0); PLATELET COUNT, AUTOMATED 166 10^3/uL (150-450); RED BLOOD COUNT 4.13 10^6/uL (4.00-5.40); RED CELL DISTRIBUTION WIDTH 12.9 % (11.5-14.5); WHITE BLOOD COUNT 4.6 10^3/uL (4.0-10.0)
[2018-04-23 13:09] LABS: ALBUMIN 3.8 GM/DL (3.2-5.2); ALBUMIN/GLOBULIN RATIO 1.27 (1.00-1.93); ALKALINE PHOSPHATASE 47 U/L (45-117); ALT/SGPT 44 U/L (12-78); ANION GAP 5 MEQ/L (8-16); AST/SGOT 24 U/L (7-37); BILIRUBIN,TOTAL 0.4 MG/DL (0.2-1.0); BLOOD UREA NITROGEN 15 MG/DL (7-18); CALCIUM LEVEL 8.4 MG/DL (8.5-10.1); CARBON DIOXIDE LEVEL 29 MEQ/L (21-32); CHLORIDE LEVEL 107 MEQ/L (98-107); CHOLESTEROL LEVEL 157 MG/DL (<200); CHOLESTEROL RISK RATIO 2.661 (<5); CREATININE FOR GFR 0.68 MG/DL (0.55-1.30); GLOMERULAR FILTRATION RATE > 60.0 (>60); GLUCOSE, FASTING 93 MG/DL (70-100); HDL CHOLESTEROL 59 MG/DL (>40); LDL CHOLESTEROL 89 MG/DL (<100); NON-HDL-C 98 MG/DL; POTASSIUM SERUM 4.3 MEQ/L (3.5-5.1); SODIUM LEVEL 141 MEQ/L (136-145); TOTAL PROTEIN 6.8 GM/DL (6.4-8.2); TRIGLYCERIDES LEVEL 45 MG/DL (<150)
[2018-04-23 13:10] LABS: ESTIMATED AVERAGE GLUCOSE 111 MG/DL (60-110); HEMOGLOBIN A1c 5.5 %
[2018-04-25 10:03] LABS: TOTAL 25(OH) VITAMIN D 35.7 NG/ML (30.0-100.0)
== END ==
LOC: M WUC 11:37
DX: R53.83 Other fatigue (principal); E55.9 Vitamin D deficiency, unspecified; R42 Dizziness and giddiness
CPT/HCPCS: 84443

== ENCOUNTER → 2018-08-01 | Outpatient (REF) | payer OTHER ==
[~2018-08-01] MED LIST changes: +EFFE75CA2 PO; -EFFE75CA75 PO
[2018-08-04 14:19] LABS: HPV HYBRID CAPTURE II Negative (Negative)
== END ==
LOC: M LAB REF 17:22
PROVIDERS: ATTEND Obstetrics & Gynecology
DX: Z87.410 Personal history of cervical dysplasia (principal); Z12.4 Encounter for screening for malignant neoplasm of cervix; Z11.51 Encounter for screening for human papillomavirus (HPV)
CPT/HCPCS: 87624; 88305; G0123

== ENCOUNTER → 2018-09-01 | Outpatient (REF) | payer OTHER | LOC: M LAB REF 16:50 | PROVIDERS: ATTEND Obstetrics & Gynecology | DX: L02.818 Cutaneous abscess of other sites (principal) ==

== ENCOUNTER → 2018-11-07 | Outpatient (CLI) | payer OTHER ==
--- NOTE | 2018-11-08 06:02 | REP ---
Clinical: Abnormal uterine bleeding . Technique: Transabdominal pelvic ultrasound followed by transvaginal examination for better evaluation of the endometrium and adnexa with color Doppler evaluation of the ovaries. Findings: Bladder is unremarkable and measures 10.1 x 9.0 x 6.8 cm . Normal anteverted uterus measures 7.8 x 3.7 x 6.1 cm . The endometrial complex measures 14 mm thickness. 1.5 x 0.9 x 1.1 cm endometrial polyp noted. Bilateral ovaries are normal in appearance and vascularity without evidence for torsion. Right ovary measures 3.8 x 2.3 x 3.5 cm with 1.3 cm dominant follicle ; R I = 0.60 . Left ovary measures 7.9 x 4.4 x 8.0 cm with complex 7.1 x 4.1 x 7.2 cm cyst having mobile debris and solid component ; R I = 0.70 . No free fluid . Impression: 1. Endometrial polyp. 2. Complex cysts within the enlarged left ovary. Follow-up examination in 4-6 weeks may be warranted to evaluate for resolution. Electronically Signed by Yosvany Malone MD 11/08/2018 05:54 A
== END ==
LOC: M RAD 11:17
PROVIDERS: ATTEND Obstetrics & Gynecology
DX: N83.202 Unspecified ovarian cyst, left side (principal); N84.0 Polyp of corpus uteri

== ENCOUNTER → 2018-12-27 | Outpatient (REF) | payer OTHER | LOC: M LAB REF 13:24 | PROVIDERS: ATTEND Obstetrics & Gynecology | DX: N93.9 Abnormal uterine and vaginal bleeding, unspecified (principal) ==

== ENCOUNTER → 2018-12-30 | Outpatient (CLI) | payer OTHER ==
--- NOTE | 2018-12-30 15:02 | REP ---
REASON FOR EXAM: Followup ovarian cyst. The prior exam of 11/07/2018 showed a 7.1 x 4.1 x 7.2 complex-appearing left ovarian cyst. Today's examination was obtained using transvesical and transvaginal technique. The uterus is unchanged in size, shape, and echopattern. The endometrial echocomplex is unchanged. The right ovary measures 3.7 x 3.1 x 2.8 cm and is within normal limits with normal-appearing follicles. The right ovarian RI is 0.44. Left ovary measures 5.9 x 3.7 x 5.1 cm. The left ovarian RI is 0.5. Once again, there is a complex cystic mass seen in the left adnexa, which today measures 7 x 5.5 x 4.3 cm. There is a trace amount of free fluid in the pelvis. IMPRESSION: No significant change in appearance of the complex left adnexal cystic mass. Serous or even mucinous cystadenoma or even cystadenocarcinoma cannot be ruled out. Urinary bladder measures 6 x 3 x 8 cm. Electronically Signed by Jayson Mckeon DO 12/30/2018 03:22 P
== END ==
LOC: M RAD 13:01
PROVIDERS: ATTEND Obstetrics & Gynecology
DX: N83.202 Unspecified ovarian cyst, left side (principal)

== ENCOUNTER → 2019-01-25 | Outpatient (CLI) | payer OTHER ==
[2019-01-25 14:41] LABS: HCG, SERUM QUANTITATIVE < 1.0 MIU/ML; LDH LACTATE DEHYDROGENASE 165 U/L (84-246)
[2019-01-27 10:10] LABS: CA 125 32.3 U/ML (<30.2); CA19-9 TUMOR MARKER,CARBOHYDRA 18.4 U/ML (<35.0)
[2019-01-27 14:50] LABS: HPV HYBRID CAPTURE II Negative (Negative)
[2019-02-01 00:06] LABS: HE4 49.4 pmol/L (0.0-61.2); INHIBIN B 24.5 pg/mL (.)
== END ==
LOC: M SMT 11:55
PROVIDERS: ATTEND Obstetrics & Gynecology
DX: N83.299 Other ovarian cyst, unspecified side (principal)
CPT/HCPCS: 36415; 82378; 83520; 83615; 84702; 86301; 86304; 86305; 87624; 88305; G0123

== ENCOUNTER → 2019-03-02 | Outpatient (CLI) | payer OTHER ==
--- NOTE | 2019-03-03 03:36 | REP ---
Clinical: Follow-up ovarian cyst. . Technique: Transabdominal pelvic ultrasound followed by transvaginal examination for better evaluation of the endometrium and adnexa with color Doppler evaluation of the ovaries. Comparison: 12/30/2018 Findings: Bladder is unremarkable and measures 6.9 x 2.4 x 4.8 cm . Normal anteverted uterus measures 9.0 x 4.2 x 4.1 cm . The endometrial complex measures 13.4 mm thickness. Incidental Nabothian cysts measure up to 8 mm. No further discrete uterine or endometrial abnormalities are appreciated. Bilateral ovaries are normal in vascularity without evidence for torsion. Right ovary measures 3.6 x 2.7 x 2.1 cm (RI 0.43) and includes 1.6 x 1.4 x 1.1 cm complex cyst as well as suggestion for 1.5 x 1.3 x 1.4 cm isoechoic lesion possibly hemorrhagic cyst. Left ovary measures 6.1 x 4.9 x 3.1 cm (RI 0.56) and includes 6.1 x 3.2 x 3.1 cm primarily simple cyst. No pelvic fluid or adnexal mass lesion . Impression: 1. Relatively normal anteverted uterus with small Nabothian cysts. 2. Bilateral ovaries demonstrate normal vascularity without torsion along. Right ovarian cysts are likely physiologic and cyclical when compared to prior examination while the larger relatively simple left ovarian cyst is again noted and only minimally decreased from prior examination. Continued follow-up may be warranted. Electronically Signed by Yosvany Malone MD 03/03/2019 03:27 A
== END ==
LOC: M RAD 16:29
PROVIDERS: ATTEND Obstetrics & Gynecology
DX: N83.202 Unspecified ovarian cyst, left side (principal); N85.4 Malposition of uterus; N83.201 Unspecified ovarian cyst, right side

== ENCOUNTER → 2019-03-22 | Outpatient (CLI) | payer OTHER ==
[~2019-03-22] MED LIST changes: +ISOVUE-370 76% 100ML VIAL (Q9967) As Ordered ONE
--- NOTE | 2019-03-22 16:57 | REP ---
Hysterosalpingography: History: Primary infertility. Known endometriosis. Fluoroscopy time is 0.3 minutes. Findings: Sequentially obtained fluoroscopic spot views taken during the endometrial contrast injection demonstrate normal size and shape endometrial cavity. The isthmic and ampullary segments of the fallopian tubes opacify symmetrically and bilateral peritoneal spillage is documented. Impression: Normal hysterosalpingogram. Bilateral tubal patency is documented. Electronically Signed by Lucio Massey MD 03/22/2019 05:48 P
== END ==
LOC: M RADPRO 11:57
PROVIDERS: ATTEND Obstetrics & Gynecology
DX: N97.9 Female infertility, unspecified (principal)
CPT/HCPCS: 58340; 74740; Q9967

== ENCOUNTER → 2019-05-29 | Outpatient (CLI) | payer OTHER ==
[~2019-05-29] MED LIST changes: -ISOVUE-370 76% 100ML VIAL (Q9967) As Ordered ONE
== END ==
LOC: M PLALAB 15:57
PROVIDERS: ATTEND Obstetrics & Gynecology
DX: N83.202 Unspecified ovarian cyst, left side (principal)

== ENCOUNTER → 2019-06-08 | Outpatient (CLI) | payer OTHER ==
--- NOTE | 2019-06-08 21:35 | REP ---
Clinical: Follow up ovarian cyst. Technique: Transabdominal pelvic ultrasound followed by transvaginal examination for better evaluation of the endometrium and adnexa with color Doppler evaluation of the ovaries. Findings: Bladder appears normal and measures 9.2 x 4.7 x 6.2 cm. Normal anteverted uterus measures 8.5 x 4.1 x 5.1 cm. Endometrial complex measures 7 mm thickness. No discrete uterine or endometrial abnormalities are noted Bilateral ovaries are normal in vascularity without torsion. Right ovary measures 4.4 x 2.9 x 3.5 cm (RI 0.73) and includes 1.7 cm complex cyst and 1.9 cm hyperechoic possibly hemorrhagic cyst versus solid lesion. Left ovary measures 8.0 x 4.9 x 7.9 cm (RI 0.71) and again includes a hypoechoic cyst with low-level echogenicity measuring 7.7 x 4.5 x 7.3 cm slightly increased from prior examination. Impression: 1. Normal uterus. 2. Right ovarian cyst and possible hemorrhagic cyst versus solid lesion likely representing physiologic changes. 3. Large left hypoechoic cyst appears slightly increased and requires further workup. Electronically Signed by Yosvany Malone MD 06/08/2019 09:26 P
== END ==
LOC: M RAD 09:28
PROVIDERS: ATTEND Obstetrics & Gynecology
DX: N83.202 Unspecified ovarian cyst, left side (principal)

== ENCOUNTER 2019-08-29 07:03 | Day surgery (SDC) | payer OTHER ==
[~2019-08-29] VITALS: Ht 160 cm; Wt 56.7 kg
[~2019-08-29 07:03] MED LIST changes: +LIDOCAINE 2% INJ 100 MG/5 ML SDV (FOR ANES.) As Ordered ONE; +LYSI1000 PO; +MULTCAP PO; +NS 1,000 ML IV ONE; +propofoL 200 MG/20 ML VIAL As Ordered ONE
[2019-08-29] MEDS ORDERED: propofoL 200 MG/20 ML VIAL As Ordered ONE ×2 (07:51→07:54)
--- NOTE | 2019-08-29 08:23 | ROOR ---
Patient Name: Shanae Sutton Procedure Date: 08/29/2019 7:29 AM Date of : 1980 Age: 39 Room: [facility] Gender: Female Note Status: Finalized Procedure: Colonoscopy Indications: Hematochezia Providers: Robby DIXON MD Referring MD: BECCA Chapa, Gregoria Bermudez MD Requesting Provider: Medicines: Monitored Anesthesia Care Complications: No immediate complications. Procedure: Pre-Anesthesia Assessment: - The heart rate, respiratory rate, oxygen saturations, blood pressure, adequacy of pulmonary ventilation, and response to care were monitored throughout the procedure. The Colonoscope was introduced through the anus and advanced to 10 cm into the ileum. The colonoscopy was performed without difficulty. The patient tolerated the procedure well. The quality of the bowel preparation was good. Findings: The perianal exam findings include non-thrombosed external hemorrhoids, non-thrombosed internal hemorrhoids and a skin tag. A medium-sized polypoid fold (intrinsic vs extrinsic impression) was found in the recto-sigmoid colon (at 18 cm from verge). No bleeding was present. This was biopsied with a cold forceps for histology. The exam was otherwise normal throughout the examined colon. The terminal ileum appeared normal. Impression: - Non-thrombosed prolapsing internal hemorrhoids found on perianal exam. - Polypoid fold (vs extrinsic impression) in the recto-sigmoid colon. Biopsied. - The examined portion of the ileum was normal. Recommendation: - Await pathology results. - Perform CT scan (computed tomography) of the pelvis with contrast at appointment to be scheduled. - My office will call you in the next few days to set you up for this study/exam. Robby Dixon MD Robby DIXON MD 08/29/2019 8:23:00 AM Electronically signed by Robby DIXON MD Number of Addenda: 0 Note Initiated On: 08/29/2019 7:29 AM Estimated Blood Loss: Estimated blood loss: none.
[2019-08-29 08:57] VITALS: BP 105/65
== END 2019-08-29 08:54 | disposition home or self-care (01) ==
LOC: M OPP 07:03
PROVIDERS: ATTEND Internal Medicine Gastroenterology
DX: K92.1 Melena (principal); D49.0 Neoplasm of unspecified behavior of digestive system; K64.4 Residual hemorrhoidal skin tags; K64.8 Other hemorrhoids; K63.89 Other specified diseases of intestine; F41.9 Anxiety disorder, unspecified; N80.9 Endometriosis, unspecified; N83.202 Unspecified ovarian cyst, left side; Z79.899 Other long term (current) drug therapy

== ENCOUNTER → 2019-09-04 | Outpatient (CLI) | payer OTHER ==
[~2019-09-04] MED LIST changes: +GASTROGRAFIN SOLUTION 30ML (Q9963) As Ordered ONE; +ISOVUE-370 76% 100ML VIAL (Q9967) As Ordered ONE; -LIDOCAINE 2% INJ 100 MG/5 ML SDV (FOR ANES.) As Ordered ONE; -NS 1,000 ML IV ONE; -propofoL 200 MG/20 ML VIAL As Ordered ONE
--- NOTE | 2019-09-04 17:44 | REP ---
HISTORY: Pelvic pain and findings from previous colonoscopy suggested the possibility of a sigmoid lesion. CONTRAST: 100 mL Isovue-370 The lung bases are clear. In the anterior segment of the right lobe of the liver near the hepatic dome there is a peripheral nodular enhancing 2.3 cm sized lesion. This enhances further in a peripheral nodular fashion on the delayed imaging. In the posterior segment of the right lobe of the liver there is a smaller 9 mm sized lesion which has similar characteristics. There is no intrahepatic or extrahepatic ductal dilatation. The gallbladder, spleen, pancreas, adrenal glands and kidneys are within normal limits. The intraabdominal bowel loops and the mesenteries are within normal limits. There is no free fluid or free air. There is no intraabdominal mass or adenopathy. CT PELVIS: In the left adnexa there is a near round 5.1 cm sized low density structure which has slightly higher than water density Hounsfield unit readings. There is a smaller but similar appearing structure in the right adnexa which measures 4.1 cm. There is a trace amount of free fluid in the pelvis. The pelvic bowel loops and the mesenteries are within normal limits. There is no pelvic sidewall adenopathy. There is no inguinal adenopathy. Bone window technique throughout the exam shows the osseous structures to be within normal limits. IMPRESSION: 1. Hepatic hemangiomas as described above. 2. Bilateral adnexal cysts, most probably of ovarian origin. Prior ultrasound obtained almost three months ago did show ovarian cysts. It is impossible to say whether the cyst today represents the cysts seen on that old exam since ovarian cysts are known to wax and wane. 3. Other findings as described above. Electronically Signed by Jayson Mckeon DO 09/05/2019 08:46 A
== END ==
LOC: M RAD 14:17
PROVIDERS: ATTEND Internal Medicine Gastroenterology
DX: D37.4 Neoplasm of uncertain behavior of colon (principal); K62.5 Hemorrhage of anus and rectum

== ENCOUNTER → 2020-03-12 | Outpatient (CLI) | payer OTHER ==
[~2020-03-12] MED LIST changes: -GASTROGRAFIN SOLUTION 30ML (Q9963) As Ordered ONE; -ISOVUE-370 76% 100ML VIAL (Q9967) As Ordered ONE
[2020-03-12 20:16] LABS: APPEARANCE, URINE CLEAR (CLEAR); BACTERIA, URINE AUTO 2+ (NEGATIVE); BASO # 0.1 10^3/uL (0.0-0.2); BASO % 0.5 % (0.0-1.0); BILIRUBIN, URINE AUTO NEGATIVE (NEGATIVE); BLOOD, URINE BLOOD 2+ (NEGATIVE); COLOR, URINE YELLOW (YELLOW); EOS # 0.1 10^3/uL (0.0-0.5); EOS % 0.7 % (0.0-3.0); GLUCOSE, URINE (UA) AUTO NEGATIVE (NEGATIVE); HCG, SERUM QUALITATIVE NEGATIVE (NEGATIVE); HEMATOCRIT 35.9 % (36.0-47.0); HEMOGLOBIN 11.6 g/dl (12.0-15.5); KETONE, URINE AUTO NEGATIVE (NEGATIVE); LEUKOCYTE ESTERASE, URINE AUTO TRACE (NEGATIVE); LYMPH # 1.9 10^3/uL (1.5-5.0); LYMPH % 17.5 % (24.0-44.0); MEAN CORPUSCULAR HEMOGLOBIN 29.9 pg (27.0-33.0); MEAN CORPUSCULAR HGB CONC 32.3 g/dl (32.0-36.5); MEAN CORPUSCULAR VOLUME 92.5 fl (80.0-96.0); MONO # 0.6 10^3/uL (0.0-0.8); MONO % 5.9 % (0.0-5.0); NEUTROPHILS # 8.1 10^3/uL (1.5-8.5); NITRITE, URINE AUTO NEGATIVE (NEGATIVE); PLATELET COUNT, AUTOMATED 201 10^3/uL (150-450); PROTEIN, URINE AUTO NEGATIVE (NEGATIVE); RBC, URINE AUTO 2 /HPF (0-3); RED BLOOD COUNT 3.88 10^6/uL (4.00-5.40); SPECIFIC GRAVITY URINE AUTO 1.005 (1.002-1.035); SQUAMOUS EPITHELIAL CELL UR AU 1 /HPF (0-6); UROBILINOGEN, URINE AUTO 0.2 mg/dL (0.0-2.0); WBC, URINE AUTO 2 /HPF (0-3); WHITE BLOOD COUNT 10.7 10^3/uL (4.0-10.0)
[2020-03-12 20:23] LABS: ALBUMIN 4.3 GM/DL (3.2-5.2); ALT/SGPT 38 U/L (12-78); BILIRUBIN,TOTAL 0.3 MG/DL (0.2-1.0); BLOOD UREA NITROGEN 19 MG/DL (7-18); CALCIUM LEVEL 9.2 MG/DL (8.5-10.1); CARBON DIOXIDE LEVEL 28 MEQ/L (21-32); CHLORIDE LEVEL 104 MEQ/L (98-107); CREATININE FOR GFR 0.75 MG/DL (0.55-1.30); FREE T4 0.96 NG/DL (0.76-1.46); GLOMERULAR FILTRATION RATE > 60.0 (>60); GLUCOSE, FASTING 55 MG/DL (70-100); LIPASE 160 U/L (73-393); POTASSIUM SERUM 3.9 MEQ/L (3.5-5.1); SODIUM LEVEL 138 MEQ/L (136-145); TOTAL PROTEIN 7.8 GM/DL (6.4-8.2)
[2020-03-14 17:09] LABS: H PYLORI SERUM QUANT IGA <9.0 units (0.0-8.9); H PYLORI SERUM QUANT IGM 11.9 units (0.0-8.9); H PYLORI SERUM QUANT IgG ABY 0.22 (0.00-0.79); TISSUE TRANSGLUTAMINASE IgA <2 U/mL (0-3)
== END ==
LOC: M WUC 17:20
PROVIDERS: ATTEND Nurse Practitioner Family
DX: R10.84 Generalized abdominal pain (principal)

== ENCOUNTER 2020-07-27 13:41 | Emergency (ER) | payer OTHER ==
[~2020-07-27] VITALS: Ht 160 cm; Wt 58.9 kg
[2020-07-27] MEDS ORDERED: BUPR150T5 PO (13:52)
[2020-07-27] MEDS ORDERED: VENL75CA47 PO (13:52)
--- OUTSIDE RECORDS SUMMARY | 2020-07-27 14:09 | CCD ---
Continuity of Care Document (CCD) Created on: 05/22/2020 Herman Shanae External Reference #: [id number] : [id number] Sex: Female Author Author hSanae MONTELONGO [facility] Organization Unknown Address [address] [place] [address] [place] [address] Phone [phone] Care Team Providers Care Rail Flaw Detector Operator Name Role Phone Marcel Co Publi AUTM [phone] Problems Description No Information Available Social History Type Date Description Comments Sex Unknown ETOH Use Denies alcohol use Tobacco Use Start: Unknown Patient has never smoked Smoking Status Reviewed: 05/22/20 Patient has never smoked Allergies, Adverse Reactions, Alerts Description No Known Drug Allergies Medications Active Medications SIG Qnty Indications Ordering Provide r Date Effexor XR 75mg Caps ER 24HR take caps by mouth every morning Unknown Zyrtec Allergy yesterday Unknown History Medications Oseltamivir Phosphate 75mg Capsule s take one tab by mouth twice a day for 5 days 10caps J09.x9 Frankie Walker JR., M.D. 05/14/2020 - 05/22/2020 Immunizations Description No Information Available Vital Signs Date Vital Result Comment 05/22/2020 8:38am BP Systolic 120 mmHg BP Diastolic 76 mmHg Heart Rate 80 /min Respiratory Rate 14 /min O2 % BldC Oximetry 98 % Body Temperature 98.7 F Weight 128.00 lb Height 63 inches 5'3" BMI (Body Mass Index) 22.7 kg/m2 Pain Level 5 05/14/2020 8:24am BP Systolic 117 mmHg BP Diastolic 76 mmHg Heart Rate 83 /min Respiratory Rate 16 /min O2 % BldC Oximetry 99 % Body Temperature 98.3 F Weight 128.00 lb Height 63 inches 5'3" BMI (Body Mass Index) 22.7 kg/m2 Pain Level 1 Results Description No Information Available Procedures Description No Information Available Medical Devices Description No Information Available Encounters Type Date Location Provider Dx Diagnosis Office Visit 05/22/2020 8:30a Main Office BECCA Thornton U07 .1 Covid-19 Z20.828 Contact w and exposure to ot h viral communicable diseases Office Visit 05/14/2020 8:10a Main Office BECCA Thornton J09 .x9 Flu due to ident novel influenza A virus w oth manifest R05 Cough Z20.828 Contact w and exposure to ot h viral communicable diseases Office Visit 03/24/2020 12:00p Main Office Zuri Shane NP J00 Acute nasopharyngitis [common cold] Z20.828 Contact w and exposure to ot h viral communicable diseases B96.81 Helicobacter pylori as the c ause of diseases classd elsr Assessments Date Code Description Provider 05/22/2020 U07.1 Covid-19 BECCA Garibay 05/22/2020 Z20.828 Contact with and (dukes spected) exposure to other viral communicable diseases BECCA Thornton 05/14/2020 J09.x9 Influenza due to master ntified novel influenza A virus with other manifestations BECCA Thornton 05/14/2020 R05 Cough BECCA Garibay 05/14/2020 Z20.828 Contact with and (dukes spected) exposure to other viral communicable diseases BECCA Thornton 03/24/2020 J00 Acute nasopharyngitis [common co ld] Zuri Shane NP 03/24/2020 Z20.828 Contact with and (dukes spected) exposure to other viral communicable diseases Zuri Shane NP 03/24/2020 B96.81 Helicobacter pylori [H. pylori] as the cause of diseases classified elsewhere Zuri Shane NP Plan of Treatment No Information Available Functional Status Description No Information Available Mental Status Description No Information Available Referrals Description No Information Available
--- OUTSIDE RECORDS SUMMARY | 2020-07-27 14:09 | CCD ---
Continuity of Care Document (CCD) Created on: 07/22/2020 Jose DavidShanae rich External Reference #: [id number] : 1980 Sex: Female Author Author Shanae [place]ARK [place] Organization Unknown Address [address] [place] [address] Phone [phone] Problems Description No Information Available Social History Type Date Description Comments Sex Unknown Tobacco Use Start: Unknown Never Used Smokeless Tobacco ETOH Use Rarely consumes alcohol Tobacco Use Start: Unknown Patient has never smoked Recreational Drug Use Never Used Drugs Smoking Status Reviewed: 07/22/20 Patient has never smoked Exercise Type/Frequency Exercises regularly Tattoo/Piercing Tattoo Tattoo/Piercing Pierced ears Sun Exposure Moderate amount of sun exposure Seat Belt/Car Seat Always uses seat belt Bike Helmet Never Smoke Alarms Yes Smoke Alarms Carbon Monoxide Detector: Yes Allergies, Adverse Reactions, Alerts Description No Known Drug Allergies Medications Active Medications SIG Qnty Indications Ordering Provide r Date Bupropion Hydrochloride ER (SR) 150mg Tablets ER 12HR 1 by mouth every day 30tabs F43.23 Eliza Barragan M.D. 07/22/2020 Effexor XR 75mg Caps ER 24HR 1 by mouth every day 90caps Katiana Edwards FNP Lysine 500mg Capsules 1 by mouth once a day Unknown History Medications Pantoprazole Sodium 20mg Tablets D R 1 by mouth twice a day 28tabs K29.00 Eliza Barragan M.D. 03/20 - 07/22/2020 Amoxicillin 500mg Tablets take two by mouth bid 36tabs K29.00 Eliza Barragan M.D. 020 - 07/22/2020 Clarithromycin 500mg Tablets take one by mouth twice a day x 14 days 28tabs K29.00 Eliza Barragan M.D. 03/20/2020 - 07/22/2020 Bactrim DS 800-160mg Tablets 1 by mouth twice a day 14taKatiana Quintanilla FNP 03/14/2020 - 07/22/2020 Immunizations Description No Information Available Vital Signs Date Vital Result Comment 07/22/2020 9:42am BP Systolic 105 mmHg BP Diastolic 60 mmHg Heart Rate 62 /min Body Temperature 97.3 F Respiratory Rate 16 /min Height 63.50 inches 5'3.50" Weight 130.25 lb O2 % BldC Oximetry 99 % Peak Expiratory Flow Rate 366 Estimated Peak Flow Rate [place] Body Weight 115 lb BMI (Body Mass Index) 22.7 kg/m2 03/20/2020 3:03pm BP Systolic 92 mmHg BP Diastolic 52 mmHg Heart Rate 62 /min Body Temperature 97.4 F Respiratory Rate 14 /min Height 63.75 inches 5'3.75" Weight 128.50 lb Peak Expiratory Flow Rate 368 Estimated Peak Flow Rate Last Menstrual Period 6042253 [place] Body Weight 115 lb BMI (Body Mass Index) 22.2 kg/m2 Results Test Acquired Date Facility Test Result H/L Range Note CBC With Differential 03/12/2020 [facility] [phone] White Blood Count 10.7 10 High 4.0-10.0 Red Blood Count 3.88 10 Low 4.00-5.40 Hemoglobin 11.6 g/dL Low 12.0-15.5 Hematocrit 35.9 % Low 36.0-47.0 Mean Corpuscular Volume 92.5 fl Normal 80.0-96.0 Mean Corpuscular Hemoglobin 29.9 pg Normal 27.0-33.0 Mean Corpuscular HGB Conc 32.3 g/dL Normal 32.0-36.5 Red Cell Distribution Width 12.9 % Normal 11.5-14.5 Platelet Count, Automated 201 10 Normal 150-450 Neutrophils % 75.0 % High 36.0-66.0 Lymph % 17.5 % Low 24.0-44.0 [place] % 5.9 % High 0.0-5.0 Eos % 0.7 % Normal 0.0-3.0 Baso % 0.5 % Normal 0.0-1.0 Immature Granulocyte % 0.4 % Normal 0-3.0 Nucleated Red Blood Cell % 0.0 % Normal 0-0 Neutrophils # 8.1 10 Normal 1.5-8.5 Lymph # 1.9 10 Normal 1.5-5.0 [place] # 0.6 10 Normal 0.0-0.8 Eos # 0.1 10 Normal 0.0-0.5 Baso # 0.1 10 Normal 0.0-0.2 Comprehensive Metabolic Profil 03/12/2020 [facility] [phone] Glucose, Fasting 55 mg/dL Low 70-100 Blood Urea Nitrogen 19 mg/dL High 7-18 Creatinine For GFR 0.75 mg/dL Normal 0.55-1.30 Glomerular Filtration Rate > 60.0 Normal >60 1 Sodium Level 138 mEq/L Normal 136-145 Potassium Serum 3.9 mEq/L Normal 3.5-5.1 Chloride Level 104 mEq/L Normal 98-107 Carbon Dioxide Level 28 mEq/L Normal 21-32 Anion Gap 6 mEq/L Low 8-16 Calcium Level 9.2 mg/dL Normal 8.5-10.1 Ast/Sgot 32 U/L Normal 7-37 Alt/SGPT 38 U/L Normal 12-78 Alkaline Phosphatase 61 U/L Normal 45-117 Bilirubin,Total 0.3 mg/dL Normal 0.2-1.0 Total Protein 7.8 GM/DL Normal 6.4-8.2 Albumin 4.3 GM/DL Normal 3.2-5.2 Albumin/Globulin Ratio 1.2 Normal 1.2-2.2 Laboratory test finding 03/12/2020 [facility] [phone] H Pylori Serum Quant Iga <9.0 units Normal 0.0-8.9 2 H Pylori Serum Quant IgG Kristie 0.22 Normal 0.00-0.79 3 H Pylori Serum Quant Igm 11.9 units High 0.0-8.9 4 Tissue Transglutaminase IgA <2 U/mL Normal 0-3 5 Lipase 160 U/L Normal 73-393 HCG Serum Qualitative NEGATIVE Normal Negative Ua Routine 03/12/2020 [facility] nter [phone] Appearance, Urine CLEAR Normal Clear Color, Urine YELLOW Normal Yellow PH,Urine 6.0 units Normal 5.0-9.0 Specific [place] Urine Auto 1.005 Normal 1.002-1.035 Protein, Urine Auto NEGATIVE mg/dL Normal Negative Glucose, Urine (Ua) Auto NEGATIVE mg/dL Normal Negative Ketone, Urine Auto NEGATIVE mg/dL Normal Negative Urobilinogen, Urine Auto 0.2 mg/dL Normal 0.0-2.0 Bilirubin, Urine Auto NEGATIVE Normal Negative Nitrite, Urine Auto NEGATIVE Normal Negative Leukocyte Esterase, Urine Auto TRACE High Negative Blood, Urine Blood 2+ High Negative WBC, Urine Auto 2 /HPF Normal 0-3 RBC, Urine Auto 2 /HPF Normal 0-3 Bacteria, Urine Auto 2+ High Negative Squamous Epithelial Cell Ur AU 1 /HPF Normal 0-6 Hyaline Cast, Urine Auto 0 /LPF Normal 0-1 TSH And T4 Free ([facility]) 03/12/2020 [facility] [phone] Thyroid Stimulating Hormone 2.310 uIU/ML Normal 0. 358-3.740 Free T4 0.96 ng/dL Normal 0.76-1.46 1 Units are mL/min/1.73 m2 Chronic Kidney Disease Staging per NKF: Stage I & II GFR >=60 Normal to Mildly Decreased Stage III GFR 30-59 Moderately Decreased Stage IV GFR 15-29 Severely Decreased Stage V GFR <15 Very Little GFR Left ESRD GFR <15 on INSIDE BARREL POLISHER 2 Negative <9.0 Equivocal 9.0 - 11.0 Positive >11.0 3 Result Units: Index Value Negative <0.80 Equivocal 0.80 - 0.89 Positive >0.89 4 Negative <9.0 Equivocal 9.0 - 11.0 Positive >11.0 . . This test was developed and its performance characteristics determined by [employer]. It has not been cleared or approved by the Food and Drug Administration. 5 Negative 0 - 3 Weak Positive 4 - 10 Positive >10 . Tissue Transglutaminase (tTG) has been identified as the endomysial antigen. Studies have demonstr- ated that endomysial IgA antibodies have over 99% specificity for gluten sensitive enteropathy. Performed at: RN - [facility] [address] [id number] [place]: Gretchen West MD, Phone: [phone] Procedures Description No Information Available Medical Devices Description No Information Available Encounters Type Date Location Provider Dx Diagnosis Office Visit 03/20/2020 2:45p Main Office Kellen Stark PA K29.00 Acute gastritis without bleeding Office Visit 03/12/2020 1:15p Main Office Katiana Edwards FNP R10.8 4 Generalized abdominal pain R14.0 Abdominal distension (gaseou s) Assessments Date Code Description Provider 07/22/2020 Z00.00 Encounter for genera l adult medical examination without abnormal findings Kellen Stark PA 07/22/2020 F43.23 Adjustment disorder with mixed a nxiety and depressed mood Kellen Stark PA 03/20/2020 K29.00 Acute gastritis without bleeding Kellen Stark PA 03/12/2020 R10.84 Generalized abdominal pain Katiana Nathan FNP 03/12/2020 R14.0 Abdominal distension (gaseous) P Katiana mendoza FNP Plan of Treatment 07/22/2020 - Kellen Stark PA* Z00.00 Encounter for general adult medical examination without abnormal findings * F43.23 Adjustment disorder with mixed anxiety and depressed mood* New Medication:* Bupropion Hydrochloride ER (SR) 150 mg - 1 by mouth every day * Follow up:* 6 weeks Functional Status Functional Condition Comment Date Status .None Active Independent with all ADL's Activ e Independent with all IADL's Acti ve Mental Status Mental Condition Comment Date Status None Active Referrals Description No Information Available
--- OUTSIDE RECORDS SUMMARY | 2020-07-27 14:09 | CCD | Continuity of Care Document ---
Author Author Shanae MONTELONGO Organization Unknown Address [address] [place] [address] [place] [address] Phone [phone] Care Team Providers Care Rn Clinician Name Role Phone Marcel Co Publi AUTM [phone] Problems Description No Information Available Social History Type Date Description Comments Sex Unknown ETOH Use Denies alcohol use Tobacco Use Start: Unknown Patient has never smoked Smoking Status Reviewed: 05/14/20 Patient has never smoked Allergies, Adverse Reactions, Alerts Description No Known Drug Allergies Medications Active Medications SIG Qnty Indications Ordering Provide r Date Oseltamivir Phosphate 75mg Capsule s take one tab by mouth twice a day for 5 days 10caps J09.x9 Frankie Walker JR., M.D. 05/14/2020 Effexor XR 75mg Caps ER 24HR take caps by mouth every morning Unknown Immunizations Description No Information Available Vital Signs Date Vital Result Comment 05/14/2020 8:24am BP Systolic 117 mmHg BP Diastolic 76 mmHg Heart Rate 83 /min Respiratory Rate 16 /min O2 % BldC Oximetry 99 % Body Temperature 98.3 F Weight 128.00 lb Height 63 inches 5'3" BMI (Body Mass Index) 22.7 kg/m2 Pain Level 1 03/24/2020 12:09pm BP Systolic 130 mmHg BP Diastolic 87 mmHg Heart Rate 77 /min Respiratory Rate 24 /min O2 % BldC Oximetry 98 % Body Temperature 98.4 F Weight 126.00 lb Height 63 inches 5'3" BMI (Body Mass Index) 22.3 kg/m2 Pain Level 6 Results Description No Information Available Procedures Description No Information Available Medical Devices Description No Information Available Encounters Type Date Location Provider Dx Diagnosis Office Visit 05/14/2020 8:10a Main Office BECCA [...] as the c ause of diseases classd elswhr Assessments Date Code Description Provider 05/14/2020 J09.x9 Influenza due to master ntified [...]
--- OUTSIDE RECORDS SUMMARY | 2020-07-27 14:09 | CCD | Continuity of Care Document ---
Author Author Shanae MONTELONGO [place] Organization Unknown Address [address] [place] [address] [place] [address] Phone [phone] Care Team Providers Care Axle And Frame Mechanic Name Role Phone Marcel Co Publi AUTM [phone] Problems Description No Information Available Social History [...] Date Location Provider Dx Diagnosis Office Visit 03/24/2020 12:00p Main Office Zuri Shane NP J00 Acute nasopharyngitis [common cold] Z20.828 Contact w and exposure to ot h viral communicable diseases B96.81 Helicobacter pylori as the c ause of diseases classd elswhr Assessments Date Code Description Provider 03/24/2020 J00 Acute nasopharyngitis [common co ld] [...]
--- OUTSIDE RECORDS SUMMARY | 2020-07-27 14:09 | CCD | Continuity of Care Document ---
Author Author Shanae MONTELONGO [facility] Organization Unknown Address [address] [place] [address] [place] [address] Phone [phone] Care Team Providers Care Brand Communications Manager Name Role Phone Marcel Co Publi AUTM [phone] Problems Description No Information Available Social History [...]
--- OUTSIDE RECORDS SUMMARY | 2020-07-27 14:09 | CCD | Continuity of Care Document ---
Author Author Shanae STARK [place] Organization Unknown Address [address] [place] [address] Phone [phone] Care Team Providers Care Lusterer Name Role Phone Krishan Lopez DO PhD AUTM Problems Description No Information Available Social History [...] Tablets 1 by mouth twice a day 14tabs Katiana Edwards FNP 03/14/2020 - 07/22/2020 Immunizations Description No Information Available Vital Signs Date Vital Result Comment 07/22/2020 9:42am BP Systolic 105 mmHg BP Diastolic 60 mmHg Heart Rate 62 /min Body Temperature 97.3 F Respiratory Rate 16 /min Height 63.50 inches 5'3.50" Weight 130.25 lb O2 % BldC Oximetry 99 % Peak Expiratory Flow Rate 366 Estimated Peak Flow Rate [place] Body Weight 115 lb BMI (Body Mass Index) 22.7 kg/m2 03/20/2020 3:03pm BP Systolic 92 mmHg BP Diastolic 52 mmHg Heart Rate 62 /min Body Temperature 97.4 F Respiratory Rate 14 /min Height 63.75 inches 5'3.75" Weight 128.50 lb Peak Expiratory Flow Rate 368 Estimated Peak Flow Rate Last Menstrual Period [id number] [place] Body Weight 115 lb BMI (Body Mass Index) 22.2 kg/m2 Results Test Acquired Date Facility Test Result H/L Range Note CBC With Differential 03/12/2020 [facility] [phone] White Blood Count 10.7 10 High 4.0-10.0 [...] 36.0-66.0 Lymph % 17.5 % Low 24.0-44.0 [place] % 5.9 % High 0.0-5.0 Eos % 0.7 % Normal 0.0-3.0 Baso % 0.5 % Normal 0.0-1.0 Immature Granulocyte % 0.4 % Normal 0-3.0 Nucleated Red Blood Cell % 0.0 % Normal 0-0 Neutrophils # 8.1 10 Normal 1.5-8.5 Lymph # 1.9 10 Normal 1.5-5.0 [place] # 0.6 10 Normal 0.0-0.8 Eos # 0.1 10 Normal 0.0-0.5 Baso # 0.1 10 Normal 0.0-0.2 Comprehensive Metabolic Profil 03/12/2020 [facility] [phone] Glucose, Fasting 55 mg/dL Low 70-100 Blood [...] 1.2 Normal 1.2-2.2 Laboratory test finding 03/12/2020 [facility] [phone] H Pylori Serum Quant Iga <9.0 units Normal 0.0-8.9 2 H Pylori Serum Quant IgG Kristie 0.22 Normal 0.00-0.79 3 H Pylori Serum Quant Igm 11.9 units High 0.0-8.9 4 Tissue Transglutaminase IgA <2 U/mL Normal 0-3 5 Lipase 160 U/L Normal 73-393 HCG Serum Qualitative NEGATIVE Normal Negative Ua Routine 03/12/2020 [facility] nter [phone] Appearance, Urine CLEAR Normal Clear Color, Urine YELLOW Normal Yellow PH,Urine 6.0 units Normal 5.0-9.0 Specific [place] Urine Auto 1.005 Normal 1.002-1.035 Protein, Urine [...] /LPF Normal 0-1 TSH And T4 Free ([facility]) 03/12/2020 [facility] [phone] Thyroid Stimulating Hormone 2.310 uIU/ML Normal 0. 358-3.740 Free T4 0.96 ng/dL Normal 0.76-1.46 1 Units are mL/min/1.73 m2 Chronic Kidney Disease Staging per NKF: Stage I & II GFR >=60 Normal to Mildly Decreased Stage III GFR 30-59 Moderately Decreased Stage IV GFR 15-29 Severely Decreased Stage V GFR <15 Very Little GFR Left ESRD GFR <15 on CUFF PRESSER 2 Negative <9.0 Equivocal 9.0 - 11.0 Positive >11.0 3 Result Units: Index Value Negative <0.80 Equivocal 0.80 - 0.89 Positive >0.89 4 Negative <9.0 Equivocal 9.0 - 11.0 Positive >11.0 . . This test was developed and its performance characteristics determined by [employer]. It has not been cleared or approved by the Food and Drug Administration. 5 Negative 0 - 3 Weak Positive 4 - 10 Positive >10 . Tissue Transglutaminase (tTG) has been identified as the endomysial antigen. Studies have demonstr- ated that endomysial IgA antibodies have over 99% specificity for gluten sensitive enteropathy. Performed at: RN - [facility] [id number] [place]: Gretchen West MD, Phone: [phone] Procedures Description No Information Available Medical Devices Description No Information Available Encounters Type Date Location Provider Dx Diagnosis Office Visit 07/22/2020 9:30a Main Office Kellen Stark PA Z00.00 Encntr for general adult medical exam w/o abnormal findings F43.23 Adjustment disorder with mix ed anxiety and depressed mood Office Visit 03/20/2020 2:45p Main Office Kellen [...] P Katiana mendoza FNP Plan of Treatment Future Appointment(s):* 09/04/2020 3:00 pm - Kellen Stark PA at Main Office Functional Status Functional Condition Comment Date Status .None Active Independent with all ADL's Activ e Independent with all IADL's Acti ve Mental Status Mental Condition Comment Date Status None Active Referrals Refer to Dr Reason for Referral Status Appt Date Krishan Lopez DO, PhD MEDICATION MANAGEMENT FOR ANXIETY Sen t [address], [address] [place] [address] [phone]
--- OUTSIDE RECORDS SUMMARY | 2020-07-27 14:10 | CCD ---
Author Author [facility] Organization [facility] Address Unknown Phone Unavailable Care Team Providers Care Trust Manager Name Role Phone Pleskach, Katiana SALES PORTER Unavailable Unavailable Pleskach, Katiana SALES PORTER Unavailable Unavailable Pleskach, Katiana SALES PORTER Unavailable Unavailable Pleskach, Katiana SALES PORTER Unavailable Unavailable Pleskach, Katiana SALES PORTER Unavailable Unavailable Pleskach, Katiana SALES PORTER Unavailable Unavailable Pleskach, Katiana SALES PORTER Unavailable Unavailable Pleskach, Katiana SALES PORTER Unavailable Unavailable Pleskach, Katiana SALES PORTER Unavailable Unavailable Pleskach, Katiana SALES PORTER Unavailable Unavailable Pleskach, Katiana SALES PORTER Unavailable Unavailable Pleskach, Katiana SALES PORTER Unavailable Unavailable Pleskach, Katiana SALES PORTER Unavailable Unavailable Pleskach, Katiana SALES PORTER Unavailable Unavailable Pleskach, Katiana SALES PORTER Unavailable Unavailable Pleskach, Katiana SALES PORTER Unavailable Unavailable Pleskach, Katiana SALES PORTER Unavailable Unavailable Pleskach, Katiana SALES PORTER Unavailable Unavailable Pleskach, Katiana SALES PORTER Unavailable Unavailable Pleskach, Katiana SALES PORTER Unavailable Unavailable Pleskach, Katiana SALES PORTER Unavailable Unavailable Pleskach, Katiana SALES PORTER Unavailable Unavailable Pleskach, Katiana SALES PORTER Unavailable Unavailable Pleskach, Katiana SALES PORTER Unavailable Unavailable Pleskach, Katiana SALES PORTER Unavailable Unavailable Pleskach, Katiana SALES PORTER Unavailable Unavailable Pleskach, Katiana SALES PORTER Unavailable Unavailable Pleskach, Katiana SALES PORTER Unavailable Unavailable Pleskach, Katiana SALES PORTER Unavailable Unavailable Pleskach, Katiana SALES PORTER Unavailable Unavailable Petrancosta, [place] Kellen PA-C Unavailable Unavailabl e Petrancosta, [place] Kellen PA-C Unavailable Unavailabl e Petrancosta, [place] Kellen PA-C Unavailable Unavailabl e Petrancosta, [place] Kellen PA-C Unavailable Unavailabl e Petrancosta, [place] Kellen PA-C Unavailable Unavailabl e Petrancosta, [place] Kellen PA-C Unavailable Unavailabl e Petrancosta, [place] Kellen PA-C Unavailable Unavailabl e Petrancosta, [place] Kellen PA-C Unavailable Unavailabl e Petrancosta, [place] Kellen PA-C Unavailable Unavailabl e Petrancosta, [place] Kellen PA-C Unavailable Unavailabl e Petrancosta, [place] Kellen PA-C Unavailable Unavailabl e Petrancosta, [place] Kellen PA-C Unavailable Unavailabl e Petrancosta, [place] Kellen PA-C Unavailable Unavailabl e Petrancosta, [place] Kellen PA-C Unavailable Unavailabl e Petrancosta, [place] Kellen PA-C Unavailable Unavailabl e Petrancosta, [place] Kellen PA-C Unavailable Unavailabl e Petrancosta, [place] Kellen PA-C Unavailable Unavailabl e Petrancosta, [place] Kellen PA-C Unavailable Unavailabl e Petrancosta, [place] Kellen PA-C Unavailable Unavailabl e Petrancosta, [place] Kellen PA-C Unavailable Unavailabl e Petrancosta, [place] Kellen PA-C Unavailable Unavailabl e Petrancosta, [place] Kellen PA-C Unavailable Unavailabl e Petrancosta, [place] Kellen PA-C Unavailable Unavailabl e Zuri Shane SMALL BUSINESS REPRESENTATIVE Unavailable Unavailable Zuri Shane SMALL BUSINESS REPRESENTATIVE Unavailable Unavailable Shane, Zuri SMALL BUSINESS REPRESENTATIVE Unavailable Unavailable Shane, Zuri SMALL BUSINESS REPRESENTATIVE Unavailable Unavailable Shane, Zuri SMALL BUSINESS REPRESENTATIVE Unavailable Unavailable Shane, Zuri SMALL BUSINESS REPRESENTATIVE Unavailable Unavailable Shane, Zuri SMALL BUSINESS REPRESENTATIVE Unavailable Unavailable Shane, Zuri SMALL BUSINESS REPRESENTATIVE Unavailable Unavailable Shane, Zuri SMALL BUSINESS REPRESENTATIVE Unavailable Unavailable Shane, Zuri SMALL BUSINESS REPRESENTATIVE Unavailable Unavailable Shane, Zuri SMALL BUSINESS REPRESENTATIVE Unavailable Unavailable LETTIERE, A VENUS PA Unavailable Unavailable LETTIERE, A VENUS PA Unavailable Unavailable LETTIERE, A VENUS PA Unavailable Unavailable LETTIERE, A VENUS PA Unavailable Unavailable LETTIERE, A VENUS PA Unavailable Unavailable LETTIERE, A VENUS PA Unavailable Unavailable LETTIERE, A VENUS PA Unavailable Unavailable LETTIERE, A VENUS PA Unavailable Unavailable LETTIERE, A VENUS PA Unavailable Unavailable LETTIERE, A VENUS PA Unavailable Unavailable LETTIERE, A VENUS PA Unavailable Unavailable LETTIERE, A VENUS PA Unavailable Unavailable LETTIERE, A VENUS PA Unavailable Unavailable LETTIERE, A VENUS PA Unavailable Unavailable LETTIERE, A VENUS PA Unavailable Unavailable LETTIERE, A VENUS PA Unavailable Unavailable LETTIERE, A VENUS PA Unavailable Unavailable LETTIERE, A VENUS PA Unavailable Unavailable LETTIERE, A VENUS PA Unavailable Unavailable LETTIERE, A VENUS PA Unavailable Unavailable LETTIERE, A VENUS PA Unavailable Unavailable LETTIERE, A VENUS PA Unavailable Unavailable LETTIERE, A VENUS PA Unavailable Unavailable LETTIERE, A VENUS PA Unavailable Unavailable LETTIERE, A VENUS PA Unavailable Unavailable LETTIERE, A VENUS PA Unavailable Unavailable LETTIERE, A VENUS PA Unavailable Unavailable LETTIERE, A VENUS PA Unavailable Unavailable LETTIERE, A VENUS PA Unavailable Unavailable Re-disclosure Warning The records that you are about to access may contain information from federally-assisted alcohol or drug abuse programs. If such information is present, then the following federally mandated warning applies: This information has been disclosed to you from records protected by federal confidentiality rules (42 CFR part 2). The federal rules prohibit you from making any further disclosure of this information unless further disclosure is expressly permitted by the written consent of the person to whom it pertains or as otherwise permitted by 42 CFR part 2. A general authorization for the release of medical or other information is NOT sufficient for this purpose. The Federal rules restrict any use of the information to criminally investigate or prosecute any alcohol or drug abuse patient.The records that you are about to access may contain highly sensitive health information, the redisclosure of which is protected by Article 27-F of the [facility] Public Health law. If you continue you may have access to information: Regarding HIV / AIDS; Provided by facilities licensed or operated by the [facility] Office of Mental Health; or Provided by the [facility] Office for People With Developmental Disabilities. If such information is present, then the following [facility] mandated warning applies: This information has been disclosed to you from confidential records which are protected by state law. State law prohibits you from making any further disclosure of this information without the specific written consent of the person to whom it pertains, or as otherwise permitted by law. Any unauthorized further disclosure in violation of state law may result in a fine or long term sentence or both. A general authorization for the release of medical or other information is NOT sufficient authorization for further disc losure. Family History Family Member Name Family Member Gender Family Member Status Date o f Status Description Data Source(s) Unknown Unknown Problem [facility] ([facility]) Unknown Unknown Problem [facility] ([facility] Unknown Male Problem [facility] ([facility]) Unknown Unknown Problem [facility] ([facility] mgm,pgm Encounters Encounter Providers Location Date Indications Data Source(s ) Outpatient Attender: Kellen Garland PA-C Main Office 07/22/2020 08:30:00 AM EST [facility] ([facility] Outpatient Attender: VENUS luna 05/22/2020 07:30:00 AM EST [facility] ([facility] Outpatient Attender: VENUS luna 05/14/2020 07:10:00 AM EST [facility] ([facility]) Outpatient Attender: Zuri purvis 03/24/2020 12:00:00 PM EDT [facility] ([facility]) Outpatient Attender: Kellen Garland PA-C Main Office 03/20/2020 02:45:00 PM EDT [facility] ([facility] Outpatient Attender: Katiana Edwards [facility] Main Office 03/12/2020 0 1:15:00 PM EDT [facility] ([facility] Outpatient 09/19/2019 04:59:00 AM EDT [facility] Immunizations Vaccine Date Status Description Data Source(s) INFLUENZA VIRUS VACCINE QUADRIVALENT 2019-21 (6 MOS AN D UP) 04/17/2020 12:00:00 AM EST completed [facility] Medications Medication Brand Name Start Date Product Form Dose Route Admi nistrative Instructions Pharmacy Instructions Status Indications Reaction Description Data Source(s) 12 HR Bupropion Hydrochloride 150 MG Extended Release Oral Tablet Bupropion Hydrochloride ER (SR) 07/22/2020 12:00:00 AM EST ORAL a ctive [facility] ([facility] valacyclovir 1000 MG Oral Tablet VALACYCLOVIR HCL 06/19/2020 12: 00:00 AM EST tablet 12 TAKE TWO TABLETS BY MOUTH EVERY 12 HOURS AT 1ST SIGN OF COLD SORE TAKE TWO TABLETS BY MOUTH EVERY 12 HOURS AT 1ST SIGN OF COLD SORE SOLD: 06/22/2020 [facility] 75 mg 05/14/2020 12:00:00 AM EST capsule 10 TAKE ONE CAPSULE BY MOUTH TWICE A DAY FOR 5 DAYS TAKE ONE CAPSULE BY MOUTH TWICE A DAY FOR 5 DAYS SOLD: 05/14/2020 [facility] Oseltamivir 75 MG Oral Capsule Oseltamivir Phosphate 05/14/2020 12:00:00 AM EST ORAL completed [facility] ([facility]) 10 mg 04/23/2020 12:00:00 AM EST tablet 6 TAKE ONE TABLET BY MOUTH EVERY DAY DIRECTED FOR ANXIETY TAKE ONE TABLET BY MOUTH EVERY DAY DI RECTED FOR ANXIETY SOLD: 04/23/2020 [facility] . UNIT 04/17/2020 12:00:00 AM EST Injectable 1 AD MIN FEE ADMIN FEE SOLD: 04/17/2020 [facility] pantoprazole 20 MG Delayed Release Oral Tablet Pantoprazole Sodium 03/20/2020 12:00:00 AM EDT ORAL completed [facility] ([facility] Amoxicillin 500 MG Oral Tablet Amoxicillin 03/20/2020 12:00:00 AM EDT ORAL completed [facility] ([facility] Clarithromycin 500 MG Oral Tablet Clarithromycin 03/20/2020 12:00:00 AM EDT ORAL completed [facility] ([facility] Sulfamethoxazole 800 MG / Trimethoprim 160 MG Oral Tablet [B actrim] Bactrim DS 03/14/2020 12:00:00 AM EDT ORAL completed [facility] ([facility] Magnesium Hydroxide 80 MG/ML Oral Suspension Milk Of Magnesi a 07/12/2019 12:00:00 AM EST ORAL active M [facility] ([facility], ) Suprep Bowel Prep Kit Suprep Bowel Prep Kit 07/12/2019 12:00:00 AM EST active [facility] ([facility], ) 1 gram 07/06/2019 12:00:00 AM EST tablet 8 TAKE TWO TABLETS BY MOUTH EVERY 12 HOURS FOR 1 DAY TAKE TWO TABLETS BY MOUTH EVERY 12 HOURS FOR 1 DAY JUSTYNA [facility] 1 gram 07/06/2019 12:00:00 AM EST tablet 8 TAKE TWO TABLETS BY MOUTH EVERY 12 HOURS FOR 1 DAY TAKE TWO TABLETS BY MOUTH EVERY 12 HOURS FOR 1 DAY JUSTYNA [facility] Insurance Providers Payer name Policy type / Coverage type Policy ID Covered constitution party ID Covered constitution party's relationship to julio Policy Julio Plan Information R [facility] [id number] SP [id number] UMR O [id number] S [id number] [facility] [id number] SP [id number] Umr Commercial [id number] Self [id number] Umr Commercial [id number] Self [id number] [facility] [id number] SP [id number] [facility] [id number] SP [id number] Umr Commercial [id number] Self [id number] Umr Commercial [id number] Self [id number] Umr (pr) Commercial [id number] Self [id number] Umr Commercial [id number] Self [id number] Umr Commercial [id number] Self [id number] [facility] [id number] [facility] [id number] Family Dependent [id number] [facility] [id number] [id number] [facility] [id number] [id number] Results ID Date Data Source [id number] 05/22/2020 12:00:00 AM EST [facility] Name Value Range Interpretation Code Description Data Kami rce(s) Supporting Document(s) SARS-CoV2 Rapid Antigen [facility] This lab was reported by [facility]. ID Date Data Source [id number] 05/14/2020 12:00:00 AM EST [facility] Name Value Range Interpretation Code Description Data Kami rce(s) Supporting Document(s) SARS coronavirus 2 Ag [facility] This lab was ordered by [facility] and reported by [facility]. ID Date Data Source [id number] 03/24/2020 12:00:00 AM EDT [facility] Name Value Range Interpretation Code Description Data Kami rce(s) Supporting Document(s) SARS coronavirus 2 Ag [facility] This lab was ordered by [facility] and reported by [facility]. ID Date Data Source [id number] 03/12/2020 05:21:00 PM EDT [facility] ([facility] Name Value Range Interpretation Code Description Data Kami rce(s) Supporting Document(s) Thyrotropin [Units/volume] in Serum or Plasma 2.310 uIU/ML 0.358-3.74 0 [facility] ([facility] Thyroxine (T4) free [Mass/volume] in Serum or Plasma 0.96 ng/dL 0.76- 1.46 [facility] ([facility] ID Date Data Source [id number] 03/12/2020 05:21:00 PM EDT [facility] ([facility] Name Value Range Interpretation Code Description Data Kami rce(s) Supporting Document(s) Appearance, Urine Laboratory test result [facility] ([facility] PH,Urine 6.0 units 5.0-9.0 [facility] ([facility] Color, Urine Laboratory test result [facility] ([facility] Specific Mayo Urine Auto 1.005 1.002-1.035 [facility] ([facility] Protein, Urine Auto Laboratory test result [facility] ([facility] Glucose, Urine (Ua) Auto Laboratory test result [facility] ([facility] Bilirubin, Urine Auto Laboratory test result [facility] ([facility] Urobilinogen, Urine Auto 0.2 mg/dL 0.0-2.0 [facility] ([facility] Ketone, Urine Auto Laboratory test result [facility] ([facility] Nitrite, Urine Auto Laboratory test result [facility] ([facility] Leukocyte Esterase, Urine Auto Laboratory test result [facility] ([facility] Blood, Urine Blood Laboratory test result [facility] ([facility] RBC, Urine Auto 2 /HPF 0-3 [facility] ([facility] WBC, Urine Auto 2 /HPF 0-3 [facility] ([facility] Hyaline Cast, Urine Auto 0 /LPF 0-1 [facility] T ([facility] Squamous Epithelial Cell Ur AU 1 /HPF 0-6 [facility] ([facility] Bacteria, Urine Auto Laboratory test result [facility] ([facility] ID Date Data Source [id number] 03/12/2020 05:21:00 PM EDT [facility] ([facility] Name Value Range Interpretation Code Description Data Kami rce(s) Supporting Document(s) Helicobacter pylori IgA Ab [Units/volume] in Serum Laborator y test result 0.0-8.9 [facility] ([facility] <content>Negative <9.0</content >
<content>Equivocal 9.0 - 11.0</content>
<content>Positive >11.0</content>
<content></content> Helicobacter pylori IgG Ab [Units/volume] in Serum 0.22 0.00-0. 79 [facility] ([facility] <content>Result Units: Index Value</cont ent>
<content>Negative <0.80</content>
<content>Equivocal 0.80 - 0.89</content>
<content>Positive >0.89</content>
<content> </content> Helicobacter pylori IgM Ab [Units/volume] in Serum 11.9 units 0.0-8.9 [facility] ([facility] <content>Negative <9.0</content >
<content>Equivocal 9.0 - 11.0</content>
<content>Positive >11.0</content>
<content>.</content>
<content>.</content>
<content>This test was developed and its performance characteristics</content>
<content>determined by [facility]. It has not been cleared or</content>
<content>approved by the Food and Drug Admin istration.</content>
<content></content> Lipoprotein lipase [Enzymatic activity/volume] in Serum or P lasma 160 U/L 73-393 [facility] ([facility] Tissue transglutaminase IgA Ab [Units/volume] in Serum Labor atory test result 0-3 [facility] ([facility] Negative 0 - 3 Weak Positive 4 - 10 Positive >10 . Tissue Transglutaminase (tTG) has been identified as the endomysial antigen. Studies have demonstr- ated that endomysial IgA antibodies have over 99% specificity for gluten sensitive enteropathy. Performed at: [facility] [id number] Application Security Consultant: Gretchen West MD, Phone: [phone] Choriogonadotropin.beta subunit ( test) [Pres ence] in Serum or Plasma Laboratory test result [facility] ([facility] ID Date Data Source [id number] 03/12/2020 05:21:00 PM EDT [facility] ([facility] Name Value Range Interpretation Code Description Data Kami rce(s) Supporting Document(s) Creatinine For GFR 0.75 mg/dL 0.55-1.30 [facility] ([facility] Blood Urea Nitrogen 19 mg/dL 7-18 [facility] ([facility] Glucose, Fasting 55 mg/dL 70-100 [facility] ([facility] Glomerular Filtration Rate Laboratory test result [facility] ([facility] <content>Units are mL/min/1.73 m2</content>
<content></content>
<content>Chronic Kidney Disease Staging per NKF:</content>
<content></content>
<content>Stage I & II GFR >=60 Normal to Mildly Decreased</content>
<content>Stage III GFR 30- 59 Moderately Decreased</content>
<content>Stage IV GFR 15-29 Severely Decreased</content>
<content>Stage V GFR <15 Very Little GFR Left</content>
<content>ESRD GFR <15 on WATER RESOURCE CONSULTANT</content>
<content></content> Sodium Level 138 meq/L 136-145 [facility] ([facility] Chloride Level 104 meq/L 98-107 [facility] ([facility] Carbon Dioxide Level 28 meq/L 21-32 [facility] ([facility] Potassium Serum 3.9 meq/L 3.5-5.1 [facility] ([facility] Anion Gap 6 meq/L 8-16 [facility] ([facility] Ast/Sgot 32 U/L 7-37 [facility] ([facility] Calcium Level 9.2 mg/dL 8.5-10.1 [facility] ([facility] Alt/SGPT 38 U/L 12-78 [facility] ([facility] Bilirubin,Total 0.3 mg/dL 0.2-1.0 [facility] ([facility] Alkaline Phosphatase 61 U/L 45-117 [facility] ([facility] Total Protein 7.8 GM/DL 6.4-8.2 [facility] ([facility] Albumin/Globulin Ratio 1.2 1.2-2.2 [facility] ([facility] Albumin 4.3 GM/DL 3.2-5.2 [facility] ([facility] ID Date Data Source [id number] 03/12/2020 05:21:00 PM EDT [facility] ([facility] Name Value Range Interpretation Code Description Data Kami rce(s) Supporting Document(s) White Blood Count 10.7 10 4.0-10.0 [facility] ([facility] Red Blood Count 3.88 10 4.00-5.40 [facility] ([facility] Hemoglobin 11.6 g/dL 12.0-15.5 [facility] ([facility] Hematocrit 35.9 % 36.0-47.0 [facility] ([facility] Mean Corpuscular Volume 92.5 fl 80.0-96.0 M [facility] ([facility] Mean Corpuscular Hemoglobin 29.9 pg 27.0-33.0 [facility] ([facility] Mean Corpuscular HGB Conc 32.3 g/dL 32.0-36.5 [facility] ([facility] Red Cell Distribution Width 12.9 % 11.5-14.5 [facility] ([facility] Lymph % 17.5 % 24.0-44.0 [facility] ([facility] Platelet Count, Automated 201 10 150-450 [facility] ([facility] Neutrophils % 75.0 % 36.0-66.0 [facility] ([facility] Baso % 0.5 % 0.0-1.0 [facility] ([facility] Eos % 0.7 % 0.0-3.0 [facility] ([facility] Wells % 5.9 % 0.0-5.0 [facility] ([facility] Neutrophils # 8.1 10 1.5-8.5 [facility] ([facility] Immature Granulocyte % 0.4 % 0-3.0 [facility] ([facility] Nucleated Red Blood Cell % 0.0 % 0-0 [facility] ([facility] Eos # 0.1 10 0.0-0.5 [facility] ([facility] Wells # 0.6 10 0.0-0.8 [facility] ([facility] Lymph # 1.9 10 1.5-5.0 [facility] ([facility] Baso # 0.1 10 0.0-0.2 [facility] ([facility] ID Date Data Source [id number] 03/12/2020 05:21:00 PM EDT [facility] ([facility] Name Value Range Interpretation Code Description Data Kami rce(s) Supporting Document(s) Lipoprotein lipase [Enzymatic activity/volume] in Serum or P lasma 160 U/L 73-393 [facility] ([facility] Choriogonadotropin.beta subunit ( test) [Pres ence] in Serum or Plasma Laboratory test result [facility] ([facility] ID Date Data Source [id number] 05/29/2019 12:00:00 AM EST [facility]CW1 ([facility]) Name Value Range Interpretation Code Description Data Kami rce(s) Supporting Document(s) 40.4 <30.2 CA 125 eCW1 ([facility]) Procedure Social History Code Duration Value Status Description Data Source(s ) Smoking 07/22/2020 12:00:00 AM EST Patient has never smoked co mpleted Patient has never smoked [facility] ([facility] Smoking 05/22/2020 12:00:00 AM EST Patient has never smoked co mpleted Patient has never smoked [facility] ([facility]) Vital Signs ID Date Data Source UNK Name Value Range Interpretation Code Description Data Source(s) Body mass index (BMI) [Ratio] 22.7 kg/m2 22.7 k g/m2 [facility] ([facility] [place] body weight 115 [lb_av] 115 [lb_av] [facility] T ([facility] Oxygen saturation in Arterial blood by Pulse oximetry 99 % 99 % [facility] ([facility] Body weight 130.25 [lb_av] 130.25 [lb_av] [facility] T ([facility] Body height 63.50 [in_i] 63.50 [in_i] [facility] ([facility] 5'3.50" Respiratory rate 16 /min 16 /min [facility] ( [facility] Body temperature 97.3 [degF] 97.3 [degF] [facility] ([facility] Heart rate 62 /min 62 /min [facility] ([facility] Diastolic blood pressure 60 mm[Hg] 60 mm[Hg] [facility] ([facility] Systolic blood pressure 105 mm[Hg] 105 mm[Hg] M EDENT ([facility] Body mass index (BMI) [Ratio] 22.7 kg/m2 22.7 k g/m2 [facility] ([facility]) Body height 63 [in_i] 63 [in_i] [facility] ([facility]) 5'3" Body weight 128.00 [lb_av] 128.00 [lb_av] MED[facility] T ([facility]) Body temperature 98.7 [degF] 98.7 [degF] [facility] ([facility]) Oxygen saturation in Arterial blood by Pulse oximetry 98 % 98 % [facility] ([facility]) Respiratory rate 14 /min 14 /min [facility] ( [facility]) Heart rate 80 /min 80 /min [facility] ([facility]) Diastolic blood pressure 76 mm[Hg] 76 mm[Hg] [facility] ([facility]) Systolic blood pressure 120 mm[Hg] 120 mm[Hg] M EDENT ([facility]) Body mass index (BMI) [Ratio] 22.7 kg/m2 22.7 k g/m2 [facility] ([facility]) Body height 63 [in_i] 63 [in_i] [facility] ([facility]) 5'3" Body weight 128.00 [lb_av] 128.00 [lb_av] MEDEN T ([facility]) Body temperature 98.3 [degF] 98.3 [degF] [facility] ([facility]) Oxygen saturation in Arterial blood by Pulse oximetry 99 % 99 % [facility] ([facility]) Respiratory rate 16 /min 16 /min [facility] ( [facility]) Heart rate 83 /min 83 /min [facility] ([facility]) Diastolic blood pressure 76 mm[Hg] 76 mm[Hg] [facility] ([facility]) Systolic blood pressure 117 mm[Hg] 117 mm[Hg] [facility] Body mass index (BMI) [Ratio] 22.3 kg/m2 22.3 k g/m2 [facility] ([facility]) Body height 63 [in_i] 63 [in_i] [facility] ([facility] [place] Department, [facility]) 5'3" Body weight 126.00 [lb_av] 126.00 [lb_av] MEDEN T ([facility], [facility]) Body temperature 98.4 [degF] 98.4 [degF] MEDENT ([facility], [facility]) Oxygen saturation in Arterial blood by Pulse oximetry 98 % 98 % MEDENT ([facility], [facility]) Respiratory rate 24 /min 24 /min [facility] ( [facility] Heart rate 77 /min 77 /min MEDENT ([facility]) Diastolic blood pressure 87 mm[Hg] 87 mm[Hg] MEDENT ([facility]) Systolic blood pressure 130 mm[Hg] 130 mm[Hg] M EDENT ([facility]) Body mass index (BMI) [Ratio] 22.2 kg/m2 22.2 k g/m2 MEDENT ([facility] [place] body weight 115 [lb_av] 115 [lb_av] MEDEN T ([facility] Body weight 128.50 [lb_av] 128.50 [lb_av] MEDEN T ([facility] Body height 63.75 [in_i] 63.75 [in_i] MEDENT ([facility] 5'3.75" Respiratory rate 14 /min 14 /min MEDENT ( [facility] Body temperature 97.4 [degF] 97.4 [degF] MEDENT ([facility] Heart rate 62 /min 62 /min MEDENT ([facility] Diastolic blood pressure 52 mm[Hg] 52 mm[Hg] MEDENT ([facility] Systolic blood pressure 92 mm[Hg] 92 mm[Hg] M EDENT ([facility] Body mass index (BMI) [Ratio] 22.4 kg/m2 22.4 k g/m2 MEDENT ([facility] [place] body weight 115 [lb_av] 115 [lb_av] MEDEN T ([facility] Oxygen saturation in Arterial blood by Pulse oximetry 98 % 98 % MEDENT ([facility] Body weight 129.38 [lb_av] 129.38 [lb_av] MEDEN T ([facility] Body height 63.75 [in_i] 63.75 [in_i] MEDENT ([facility] 5'3.75" Respiratory rate 18 /min 18 /min MEDENT ( [facility] Body temperature 98.2 [degF] 98.2 [degF] MEDENT ([facility] Heart rate 65 /min 65 /min MEDENT ([facility] Diastolic blood pressure 70 mm[Hg] 70 mm[Hg] MEDENT ([facility] Systolic blood pressure 111 mm[Hg] 111 mm[Hg] [facility] Diastolic blood pressure 69 mm[Hg] 69 mm[Hg] MEDENT ([facility] Systolic blood pressure 77 mm[Hg] 77 mm[Hg] [facility] ([facility] Body weight 58.514 kg 58.514 kg [facility] ([facility], ) Body mass index (BMI) [Ratio] 23.6 kg/m2 23.6 k g/m2 [facility], ) Body weight 129.00 [lb_av] 129.00 [lb_av] MEDEN T ([facility], ) Body height 62 [in_i] 62 [in_i] MEDENT ([facility]) 5'2" Diastolic blood pressure 60 mm[Hg] 60 mm[Hg] [facility] Systolic blood pressure 100 mm[Hg] 100 mm[Hg] M [facility])
--- OUTSIDE RECORDS SUMMARY | 2020-07-27 15:02 | CCD ---
Author Author [facility] Organization [facility] Address Unknown Phone Unavailable Care Team Providers Care Nougat Candy Maker Helper Name Role Phone Pleskach, Katiana UNIVERSITY PRESIDENT Unavailable Unavailable Pleskach, Katiana UNIVERSITY PRESIDENT Unavailable Unavailable Pleskach, Katiana UNIVERSITY PRESIDENT Unavailable Unavailable Pleskach, Katiana UNIVERSITY PRESIDENT Unavailable Unavailable Pleskach, Katiana UNIVERSITY PRESIDENT Unavailable Unavailable Pleskach, Katiana UNIVERSITY PRESIDENT Unavailable Unavailable Pleskach, Katiana UNIVERSITY PRESIDENT Unavailable Unavailable Pleskach, Katiana UNIVERSITY PRESIDENT Unavailable Unavailable Pleskach, Katiana UNIVERSITY PRESIDENT Unavailable Unavailable Pleskach, Katiana UNIVERSITY PRESIDENT Unavailable Unavailable Pleskach, Katiana UNIVERSITY PRESIDENT Unavailable Unavailable Pleskach, Katiana UNIVERSITY PRESIDENT Unavailable Unavailable Pleskach, Katiana UNIVERSITY PRESIDENT Unavailable Unavailable Pleskach, Katiana UNIVERSITY PRESIDENT Unavailable Unavailable Pleskach, Katiana UNIVERSITY PRESIDENT Unavailable Unavailable Pleskach, Katiana UNIVERSITY PRESIDENT Unavailable Unavailable Pleskach, Katiana UNIVERSITY PRESIDENT Unavailable Unavailable Pleskach, Katiana UNIVERSITY PRESIDENT Unavailable Unavailable Pleskach, Katiana UNIVERSITY PRESIDENT Unavailable Unavailable Pleskach, Katiana UNIVERSITY PRESIDENT Unavailable Unavailable Pleskach, Katiana UNIVERSITY PRESIDENT Unavailable Unavailable Pleskach, Katiana UNIVERSITY PRESIDENT Unavailable Unavailable Pleskach, Katiana UNIVERSITY PRESIDENT Unavailable Unavailable Pleskach, Katiana UNIVERSITY PRESIDENT Unavailable Unavailable Pleskach, Katiana UNIVERSITY PRESIDENT Unavailable Unavailable Pleskach, Katiana UNIVERSITY PRESIDENT Unavailable Unavailable Pleskach, Katiana UNIVERSITY PRESIDENT Unavailable Unavailable Pleskach, Katiana UNIVERSITY PRESIDENT Unavailable Unavailable Pleskach, Katiana UNIVERSITY PRESIDENT Unavailable Unavailable Pleskach, Katiana UNIVERSITY PRESIDENT Unavailable Unavailable Petrancosta, Bent Kellen PA-C Unavailable Unavailabl e Petrancosta, Bent Kellen PA-C Unavailable Unavailabl e Petrancosta, Bent Kellen PA-C Unavailable Unavailabl e Petrancosta, Bent Kellen PA-C Unavailable Unavailabl e Petrancosta, Bent Kellen PA-C Unavailable Unavailabl e Petrancosta, Bent Kellen PA-C Unavailable Unavailabl e Petrancosta, Bent Kellen PA-C Unavailable Unavailabl e Petrancosta, Bent Kellen PA-C Unavailable Unavailabl e Petrancosta, Bent Kellen PA-C Unavailable Unavailabl e Petrancosta, Bent Kellen PA-C Unavailable Unavailabl e Petrancosta, Bent Kellen PA-C Unavailable Unavailabl e Petrancosta, Bent Kellen PA-C Unavailable Unavailabl e Petrancosta, Bent Kellen PA-C Unavailable Unavailabl e Petrancosta, Bent Kellen PA-C Unavailable Unavailabl e Petrancosta, Bent Kellen PA-C Unavailable Unavailabl e Petrancosta, Bent Kellen PA-C Unavailable Unavailabl e Petrancosta, Bent Kellen PA-C Unavailable Unavailabl e Petrancosta, Bent Kellen PA-C Unavailable Unavailabl e Petrancosta, Bent Kellen PA-C Unavailable Unavailabl e Petrancosta, Bent Kellen PA-C Unavailable Unavailabl e Petrancosta, Bent Kellen PA-C Unavailable Unavailabl e Petrancosta, Bent Kellen PA-C Unavailable Unavailabl e Petrancosta, Bent Kellen PA-C Unavailable Unavailabl e Zuri Shane BRAKE LINING FINISHER ASBESTOS Unavailable Unavailable Zuri Shane BRAKE LINING FINISHER ASBESTOS Unavailable Unavailable Zuri Shane BRAKE LINING FINISHER ASBESTOS Unavailable Unavailable Shane, Zuri BRAKE LINING FINISHER ASBESTOS Unavailable Unavailable Shane, Zuri BRAKE LINING FINISHER ASBESTOS Unavailable Unavailable Shane, Zuri BRAKE LINING FINISHER ASBESTOS Unavailable Unavailable Shane, Zuri BRAKE LINING FINISHER ASBESTOS Unavailable Unavailable Shane, Zuri BRAKE LINING FINISHER ASBESTOS Unavailable Unavailable Shane, Zuri BRAKE LINING FINISHER ASBESTOS Unavailable Unavailable Shane, Zuri BRAKE LINING FINISHER ASBESTOS Unavailable Unavailable Shane, Zuri BRAKE LINING FINISHER ASBESTOS Unavailable Unavailable LETTIERE, A VENUS PA Unavailable [...] is protected by Article 27-F of the [facility] Public Health law. If you continue you may have access to information: Regarding HIV / AIDS; Provided by facilities licensed or operated by the [facility] Office of Mental Health; or Provided by the [facility] Office for People With Developmental Disabilities. If such information is present, then the following [facility] mandated warning applies: This information has been [...] law may result in a fine or half-way sentence or both. A general authorization for the release of medical or other information is NOT sufficient authorization for further disc losure. Family History Family Member Name Family Member Gender Family Member Status Date o f Status Description Data Source(s) Unknown Unknown Problem MEDENT ([facility]) Unknown Unknown Problem MEDENT ([facility] Unknown Male Problem MEDENT ([facility] ) Unknown Unknown Problem MEDENT ([facility]) mgm,pgm Encounters Encounter Providers Location Date Indications Data Source(s ) Outpatient Attender: Kellen Garland PA-C Main Office 07/22/2020 08:30:00 AM EST MEDENT ([facility] Outpatient Attender: VENUS luna 05/22/2020 07:30:00 AM EST MEDENT ([facility] Outpatient Attender: VENUS luna 05/14/2020 07:10:00 AM EST MEDENT ([facility] Outpatient Attender: Zuri purvis 03/24/2020 12:00:00 PM EDT MEDENT ([facility]) Outpatient Attender: Kellen Garland PA-C Main Office 03/20/2020 02:45:00 PM EDT MEDENT ([facility] Outpatient Attender: Katiana Edwards [facility] Main Office 03/12/2020 0 1:15:00 PM EDT MEDENT ([facility] Outpatient 09/19/2019 04:59:00 AM EDT [facility] Immunizations Vaccine Date Status Description Data Source(s) INFLUENZA VIRUS VACCINE QUADRIVALENT 2019- (6 MOS AN D UP) 04/17/2020 12:00:00 [...] 05/14/2020 12:00:00 AM EST ORAL completed MEDENT ([facility]) 10 mg 04/23/2020 12:00:00 AM EST tablet [...] 12:00:00 AM EST ORAL active M EDENT ([facility], ) Suprep Bowel Prep Kit Suprep Bowel Prep Kit 07/12/2019 12:00:00 AM EST active MEDENT ([facility], ) 1 gram 07/06/2019 12:00:00 AM [...] type / Coverage type Policy ID Covered alliance party ID Covered alliance party's relationship to julio Policy Julio Plan Information R [employer] [id number] SP [id number] UMR O [id number] S [id number] [facility] [id number] SP [id number] Umr Commercial [id number] Self [id number] Umr Commercial [id number] Self [id number] R [facility] [id number] SP [id number] [facility] [id number] SP [id number] Umr Commercial [id number] Self [id number] Umr Commercial [id number] Self [id number] Umr (pr) Commercial [id number] Self [id number] Umr Commercial [id number] Self [id number] Umr Commercial [id number] Self [id number] [facility] [id number] [facility] [id number] [facility] [id number] Family Dependent [id number] [facility] [id number] [facility] [id number] Results ID Date Data Source [id number] 05/22/2020 12:00:00 AM EST [facility] Name Value Range Interpretation Code Description Data Kami rce(s) Supporting Document(s) SARS-CoV2 Rapid Antigen [facility] This lab was reported by [facility]. ID Date Data Source [id number] 05/14/2020 12:00:00 AM EST [facility] Name Value Range Interpretation Code Description Data Kami rce(s) Supporting Document(s) SARS coronavirus 2 Ag [facility] This lab was ordered by [facility] and reported by [facility]. ID Date Data Source [id number] 03/24/2020 12:00:00 AM EDT [facility] Name Value Range Interpretation Code Description Data Kami rce(s) Supporting Document(s) SARS coronavirus 2 Ag [facility] This lab was ordered by [facility] and reported by [facility]. ID Date Data Source [id number] 03/12/2020 05:21:00 PM EDT MEDENT ([facility] Name Value Range Interpretation Code Description Data Kami rce(s) Supporting Document(s) Thyrotropin [Units/volume] in Serum or Plasma 2.310 uIU/ML 0.358-3.74 0 MEDENT ([facility] Thyroxine (T4) free [Mass/volume] in Serum or Plasma 0.96 ng/dL 0.76- 1.46 [facility] ([facility] ID Date Data Source [id number] 03/12/2020 05:21:00 PM EDT MEDENT ([facility] Name Value Range Interpretation Code Description Data Kami rce(s) Supporting Document(s) Appearance, Urine Laboratory test result MED[facility] ([facility] PH,Urine 6.0 units 5.0-9.0 MED[facility] ([facility] Color, Urine Laboratory test result MED[facility] ([facility] Specific [place] Urine Auto 1.005 1.002-1.035 MEDENT ([facility] [...] [facility] ID Date Data Source [id number] 03/12/2020 05:21:00 PM EDT MEDENT ([facility] [...] specificity for gluten sensitive enteropathy. Performed at: [facility] [id number] Financial Services Specialist: Gretchen West MD, Phone: [phone] Choriogonadotropin.beta subunit ( test) [Pres ence] in Serum or Plasma Laboratory test result MEDENT ([facility] ID Date Data Source [id number] 03/12/2020 05:21:00 PM EDT MEDENT ([facility] Name Value Range Interpretation Code Description Data Kami rce(s) Supporting Document(s) Creatinine For GFR 0.75 mg/dL 0.55-1.30 MEDENT ([facility] Blood Urea Nitrogen 19 mg/dL 7-18 MEDENT ([facility] Glucose, Fasting 55 mg/dL 70-100 MED[facility] ([facility] Glomerular Filtration Rate Laboratory test result MEDENT ([facility] <content>Units are mL/min/1.73 m2</content>
<content></content>
<content>Chronic Kidney Disease Staging per NKF:</content>
<content></content>
<content>Stage I & II GFR >=60 Normal to Mildly Decreased</content>
<content>Stage III GFR 30- 59 Moderately Decreased</content>
<content>Stage IV GFR 15-29 Severely Decreased</content>
<content>Stage V GFR <15 Very Little GFR Left</content>
<content>ESRD GFR <15 on HEALTHCARE ADMINISTRATOR</content>
<content></content> Sodium Level 138 meq/L 136-145 MEDENT [...] [facility] ID Date Data Source [id number] 03/12/2020 05:21:00 PM EDT MEDENT ([facility] [...] % 0.0-3.0 MEDENT ([facility] [place] % 5.9 % 0.0-5.0 MED[facility] ([facility] Neutrophils # 8.1 10 1.5-8.5 MEDENT ([facility] Immature Granulocyte % 0.4 % 0-3.0 MEDENT ([facility] Nucleated Red Blood Cell % 0.0 % 0-0 MED ENT ([facility] Eos # 0.1 10 0.0-0.5 MEDENT ([facility] [place] # 0.6 10 0.0-0.8 MED[facility] ([facility] Lymph # 1.9 10 1.5-5.0 MED[facility] ([facility] Baso # 0.1 10 0.0-0.2 MEDENT ([facility] ID Date Data Source [id number] 03/12/2020 05:21:00 PM EDT MEDENT ([facility] [...] [place] 125 05/29/2019 12:00:00 AM EST eCW1 ([facility]) Name Value Range Interpretation Code Description Data Kami rce(s) Supporting Document(s) 40.4 <30.2 [place] 125 eC ([facility]) Procedure Social History Code Duration Value Status Description Data Source(s ) Smoking 07/22/2020 12:00:00 AM EST Patient has never smoked co mpleted Patient has never smoked MEDENT ([facility] Smoking 05/22/2020 12:00:00 AM EST Patient has never smoked co mpleted Patient has never smoked MEDENT ([facility]) Vital Signs ID Date Data Source UNK Name Value Range Interpretation Code Description Data Source(s) Body mass index (BMI) [Ratio] 22.7 kg/m2 22.7 k g/m2 MEDENT ([facility] [place] body weight 115 [lb_av] 115 [lb_av] MEDEN [...] Systolic blood pressure 105 mm[Hg] 105 mm[Hg] EDENT ([facility] Body mass index (BMI) [Ratio] 22.7 kg/m2 22.7 k g/m2 MEDENT ([facility]) Body height 63 [in_i] 63 [in_i] MEDENT ([facility]) 5'3" Body weight 128.00 [lb_av] 128.00 [lb_av] MEDEN T ([facility]) Body temperature 98.7 [degF] 98.7 [degF] MEDENT ([facility]) Oxygen saturation in Arterial blood by Pulse oximetry 98 % 98 % MEDENT ([facility]) Respiratory rate 14 /min 14 /min MEDENT ( [facility], [facility]) Heart rate 80 /min 80 /min MEDENT ([facility], [facility]) Diastolic blood pressure 76 mm[Hg] 76 mm[Hg] MEDENT ([facility], [facility]) Systolic blood pressure 120 mm[Hg] 120 mm[Hg] M EDENT ([facility], [facility]) Body mass index (BMI) [Ratio] 22.7 kg/m2 22.7 k g/m2 MEDENT ([facility], [facility]) Body height 63 [in_i] 63 [in_i] MEDENT ([facility], [facility]) 5'3" Body weight 128.00 [lb_av] 128.00 [lb_av] MEDEN T ([facility], [facility]) Body temperature 98.3 [degF] 98.3 [degF] MEDENT ([facility], [facility]) Oxygen saturation in Arterial blood by Pulse oximetry 99 % 99 % MEDENT ([facility], [facility]) Respiratory rate 16 /min 16 /min MEDENT ( [facility], [facility]) Heart rate 83 /min 83 /min MEDENT ([facility], [facility]) Diastolic blood pressure 76 mm[Hg] 76 mm[Hg] MEDENT ([facility], [facility]) Systolic blood pressure 117 mm[Hg] 117 mm[Hg] [facility], [facility]) Body mass index (BMI) [Ratio] 22.3 kg/m2 22.3 k g/m2 MEDENT ([facility], [facility]) Body height 63 [in_i] 63 [in_i] [facility], [facility]) 5'3" Body weight 126.00 [lb_av] 126.00 [lb_av] MEDEN T ([facility], [facility]) Body temperature 98.4 [degF] 98.4 [degF] MEDENT ([facility], [facility]) Oxygen saturation in Arterial blood by Pulse oximetry 98 % 98 % MEDENT ([facility], [facility]) Respiratory rate 24 /min 24 /min MEDENT ( [facility], [facility]) Heart rate 77 /min 77 /min MEDENT ([facility]) Diastolic blood pressure 87 mm[Hg] 87 mm[Hg] MEDENT ([facility]) Systolic blood pressure 130 mm[Hg] 130 mm[Hg] M EDENT ([facility]) Body mass index (BMI) [Ratio] 22.2 kg/m2 22.2 k g/m2 MEDENT ([facility] [place] body weight 115 [lb_av] 115 [lb_av] MEDEN [...] k g/m2 MEDENT ([facility] [place] body weight 115 [lb_av] 115 [lb_av] MEDEN [...] Systolic blood pressure 111 mm[Hg] 111 mm[Hg] [facility] Diastolic blood pressure 69 mm[Hg] 69 mm[Hg] MEDENT ([facility] Systolic blood pressure 77 mm[Hg] 77 mm[Hg] [facility] Body weight 58.514 kg 58.514 kg [facility] ([facility]) Body mass index (BMI) [Ratio] 23.6 kg/m2 23.6 k g/m2 [facility] ([facility]) Body weight 129.00 [lb_av] 129.00 [lb_av] MEDEN T ([facility]) Body height 62 [in_i] 62 [in_i] MEDENT ([facility]) 5'2" Diastolic blood pressure 60 mm[Hg] 60 mm[Hg] MEDENT ([facility]) Systolic blood pressure 100 mm[Hg] 100 mm[Hg] [facility]
[2020-07-27] MEDS ORDERED: XANA0.5T PO (15:24)
[2020-07-27 15:30] VITALS: BP 116/79
== END 2020-07-27 15:36 | disposition home or self-care (01) ==
LOC: M ED 13:41
DX: F41.9 Anxiety disorder, unspecified (principal); Z79.899 Other long term (current) drug therapy

== ENCOUNTER → 2020-12-05 | Outpatient (CLI) | payer OTHER ==
[~2020-12-05] MED LIST changes: +BUPR150T5 PO; +VENL75CA47 PO; +XANA0.5T PO
== END ==
LOC: M PLALAB 15:52
PROVIDERS: ATTEND Obstetrics & Gynecology
DX: Z34.90 Encounter for supervision of normal pregnancy, unspecified, unspecified trimester (principal)

== ENCOUNTER → 2021-01-07 | Outpatient (CLI) | payer OTHER ==
[~2021-01-07] MED LIST changes: +DOXYPOW PO; +DRAM50TA9 PO; +EFFE37.5 PO; +IBUP80TA PO; +MULTTAB20 PO; +ONDA-83; +OXYC1TAB23 PO; +PROM25TA12; +PYRI25TA2 PO; +VENL37TA
== END ==
LOC: M PLALAB 09:21
PROVIDERS: ATTEND Obstetrics & Gynecology
DX: Z36.0 Encounter for antenatal screening for chromosomal anomalies (principal); Z3A.00 Weeks of gestation of pregnancy not specified

== ENCOUNTER 2021-01-11 10:44 | Emergency (ER) | payer OTHER ==
[~2021-01-11] VITALS: Ht 160 cm; Wt 56.1 kg
[~2021-01-11 10:44] MED LIST changes: -DOXYPOW PO; -DRAM50TA9 PO; -EFFE37.5 PO; -IBUP80TA PO; -MULTTAB20 PO; -ONDA-83; -OXYC1TAB23 PO; -PROM25TA12; -PYRI25TA2 PO; -VENL37TA
[2021-01-11] MEDS ORDERED: PROM25TA12 (11:00)
[2021-01-11] MEDS ORDERED: ONDA-83 (11:00)
[2021-01-11] MEDS ORDERED: DRAM50TA9 PO (11:00)
[2021-01-11] MEDS ORDERED: VENL37TA (11:00)
[2021-01-11] MEDS ORDERED: NS 1,000 ML IV ONE (11:35)
[2021-01-11] MEDS ORDERED: ONDANSETRON 4MG/2ML VIAL IV ONE (11:35)
[2021-01-11 12:04] LABS: BASO % 0.5 % (0.0-1.0); EOS # 0.1 10^3/uL (0.0-0.5); EOS % 0.9 % (0.0-3.0); HEMATOCRIT 36.3 % (36.0-47.0); HEMOGLOBIN 12.3 g/dl (12.0-15.5); LYMPH # 1.5 10^3/uL (1.5-5.0); LYMPH % 19.1 % (24.0-44.0); MEAN CORPUSCULAR HEMOGLOBIN 30.3 pg (27.0-33.0); MEAN CORPUSCULAR HGB CONC 33.9 g/dl (32.0-36.5); MEAN CORPUSCULAR VOLUME 89.4 fl (80.0-96.0); MONO # 0.6 10^3/uL (0.0-0.8); MONO % 7.1 % (2.0-8.0); NEUTROPHILS # 5.6 10^3/uL (1.5-8.5); PLATELET COUNT, AUTOMATED 157 10^3/uL (150-450); RED BLOOD COUNT 4.06 10^6/uL (4.00-5.40); WHITE BLOOD COUNT 7.7 10^3/uL (4.0-10.0)
[2021-01-11 12:28] LABS: BLOOD UREA NITROGEN 7 MG/DL (7-18); CALCIUM LEVEL 8.5 MG/DL (8.5-10.1); CARBON DIOXIDE LEVEL 25 MEQ/L (21-32); CHLORIDE LEVEL 108 MEQ/L (98-107); CREATININE FOR GFR 0.44 MG/DL (0.55-1.30); GLOMERULAR FILTRATION RATE > 60.0 (>60); GLUCOSE, FASTING 88 MG/DL (70-100); POTASSIUM SERUM 4.4 MEQ/L (3.5-5.1); SODIUM LEVEL 137 MEQ/L (136-145)
[2021-01-11] MEDS ORDERED: PROMETHAZINE INJ 25 MG/ML VIAL (J2550) IV ONE (12:30)
[2021-01-11] MEDS ORDERED: DOXYPOW PO (14:12)
[2021-01-11] MEDS ORDERED: PYRI25TA2 PO (14:12)
[2021-01-11 14:26] VITALS: BP 96/56
== END 2021-01-11 14:27 | disposition home or self-care (01) ==
LOC: M ED 10:44
DX: O21.1 Hyperemesis gravidarum with metabolic disturbance (principal); O09.511 Supervision of elderly primigravida, first trimester; O99.341 Other mental disorders complicating pregnancy, first trimester; Z3A.10 10 weeks gestation of pregnancy
CPT/HCPCS: 80048; 85025; 96361; 96374; 96375; 99284; J2405

== ENCOUNTER → 2021-01-17 | Outpatient (CLI) | payer OTHER ==
[~2021-01-17] MED LIST changes: +DOXYPOW PO; +DRAM50TA9 PO; +ONDA-83; +PROM25TA12; +PYRI25TA2 PO; +VENL37TA
[2021-01-17 17:34] LABS: HEMATOCRIT 35.3 % (36.0-47.0); MEAN CORPUSCULAR HEMOGLOBIN 30.6 pg (27.0-33.0); MEAN CORPUSCULAR VOLUME 90.1 fl (80.0-96.0); PLATELET COUNT, AUTOMATED 171 10^3/uL (150-450); RED BLOOD COUNT 3.92 10^6/uL (4.00-5.40); WHITE BLOOD COUNT 9.2 10^3/uL (4.0-10.0)
[2021-01-17 18:46] LABS: HEPATITIS C VIRUS ABY INDEX 0.1 INDEX (<0.8); HIV 1&2 SCREEN CENTAUR NEGATIVE (NEGATIVE)
[2021-01-17 18:59] LABS: GC DNA AMPLIFICATION NEGATIVE (NEGATIVE)
== END ==
LOC: M PLALAB 14:59
PROVIDERS: ATTEND Obstetrics & Gynecology
DX: O09.519 Supervision of elderly primigravida, unspecified trimester (principal); Z3A.00 Weeks of gestation of pregnancy not specified

== ENCOUNTER → 2021-03-21 | Outpatient (CLI) | payer OTHER ==
--- NOTE | 2021-03-21 10:08 | REP ---
INDICATION: ANATOMY COMPARISON: 12/10/2020 TECHNIQUE: Transabdominal obstetrical ultrasound with color Doppler evaluation. FINDINGS: Examination demonstrates a single live intrauterine in variable presentation. motion is identified by technologist. Placenta is noted and posterior grade 1 without evidence for placenta previa or abruption. Amniotic fluid volume is normal. Cervix measures 5.5 cm in length and appears closed.. Selected gestational age: 20 weeks 1 day with MILAGRO 08/07/2021. Gestational age by current measurements 20 weeks 5 days with MILAGRO 08/03/2021. FHR equals 160 beats per minute. BPD: 4.8 cm at 20 weeks 4 days HC: 18.4 cm at 20 weeks 5 days AC: 15.5 cm at 20 weeks 5 days FL: 3.3 cm at 20 weeks 3 days HL: 3.2 cm at 20 weeks 6 days HC/AC: 1.19 Estimated weight 364 grams (73rdpercentile). Anatomical assessment demonstrates normal structures including cranium, choroid plexus, cavum, cerebellum/posterior fossa, facial features, lungs, four-chamber heart/ventricular outflow tracts, diaphragm, stomach, cord insertion/three-vessel cord, kidneys/bladder, spine, and extremities. IMPRESSION: Single live intrauterine in variable presentation demonstrating appropriate estimated weight. Anatomical assessment is complete and normal. <Electronically signed by Yosvany Malone > 03/21/21 1007
== END ==
LOC: M WHC 08:09
PROVIDERS: ATTEND Obstetrics & Gynecology
DX: O09.519 Supervision of elderly primigravida, unspecified trimester (principal)

== ENCOUNTER → 2021-04-28 | Outpatient (CLI) | payer OTHER ==
[2021-04-28 10:57] LABS: HEMATOCRIT 33.7 % (36.0-47.0); HEMOGLOBIN 11.3 g/dl (12.0-15.5); MEAN CORPUSCULAR HGB CONC 33.5 g/dl (32.0-36.5); MEAN CORPUSCULAR VOLUME 92.6 fl (80.0-96.0); PLATELET COUNT, AUTOMATED 174 10^3/uL (150-450); RED BLOOD COUNT 3.64 10^6/uL (4.00-5.40); WHITE BLOOD COUNT 7.8 10^3/uL (4.0-10.0)
== END ==
LOC: M PLALAB 07:52
PROVIDERS: ATTEND Obstetrics & Gynecology
DX: O09.512 Supervision of elderly primigravida, second trimester (principal)

== ENCOUNTER 2021-05-08 08:26 | Emergency (ER) | payer OTHER ==
[~2021-05-08] VITALS: Ht 160 cm; Wt 63.6 kg
[2021-05-08 08:33] VITALS: BP 111/64
--- NOTE | 2021-05-08 09:47 | REP ---
INDICATION: pain COMPARISON: None. TECHNIQUE: AP, lateral, bilateral oblique views right hand. FINDINGS: The osseous structures and joint spaces are intact and normal. There is no evidence for acute fracture or dislocation. Small rounded corticated density at the base of the 5th metacarpal bone may represent old injury. Surrounding soft tissues are unremarkable. No subcutaneous emphysema or radiodense foreign body. IMPRESSION: Age-appropriate right hand radiographs. No acute fracture or dislocation. Possible old injury at the base of the 5th metacarpal bone should be correlated with patient's symptoms. <Electronically signed by Yosvany Malone > 05/08/21 [id number]
--- NOTE | 2021-05-08 09:48 | REP ---
INDICATION: pain COMPARISON: None. TECHNIQUE: AP, lateral, bilateral oblique views right wrist. FINDINGS: The carpal bones appear intact and essentially age-appropriate. There is minimal sclerosis and decreased joint space at the radiocarpal joint line. Oblique view demonstrates a small sliver of density at the base of the 5th metacarpal bone which may represent subtle injury and should be correlated with point of tenderness. Remainder of the examination is essentially age-appropriate. IMPRESSION: Single oblique view demonstrates a very small sliver of density at the base of the 5th metacarpal bone which may represent injury and should be correlated clinically. Remainder of the examination demonstrates relatively age-appropriate changes. <Electronically signed by Yosvany Malone > 05/08/21 0940
--- NOTE | 2021-05-08 09:48 | REP ---
INDICATION: pain. COMPARISON: None. TECHNIQUE: Four views FINDINGS: Seen anterior to the dorsal surface of the navicular and only on the lateral view there is evidence of a 1 by 0.6 cm sized ossific density which for the most part appears smoothly marginated. The mortise is intact. IMPRESSION: Possible age undetermined navicular fracture as described above and seen in a limited fashion on this four view ankle exam. <Electronically signed by Jayson Mckeon > 05/08/21 0974
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
[2021-05-08 09:58] LABS: HEMATOCRIT 34.8 % (36.0-47.0); HEMOGLOBIN 11.8 g/dl (12.0-15.5); MEAN CORPUSCULAR HEMOGLOBIN 30.6 pg (27.0-33.0); MEAN CORPUSCULAR HGB CONC 33.9 g/dl (32.0-36.5); MEAN CORPUSCULAR VOLUME 90.4 fl (80.0-96.0); PLATELET COUNT, AUTOMATED 168 10^3/uL (150-450); RED BLOOD COUNT 3.85 10^6/uL (4.00-5.40); WHITE BLOOD COUNT 9.7 10^3/uL (4.0-10.0)
--- OUTSIDE RECORDS SUMMARY | 2021-05-08 10:00 | CCD ---
Author Author [facility] ems Organization [facility] ems Address Unknown Phone Unavailable Care Team Providers Care Swimming Coach Or Instructor Name Role Phone Bermudez, Pritesh Unavailable PROBLEMS Type Condition ICD9-CM Code [id number] Code Onset Dates Condition S tatus W/U Status Risk SNOMED Code Notes Problem 11 weeks gestation of Z3A.11 Active confi rmed 94121394 Problem Allergic rhinitis, unspecified J30.9 Active confir med 46902114 Problem Supervision of other normal Z34.80 Ac tive confirm 433366015 Problem Maternal care for other abnormalities of pelvic organs, first trimester O34.81 Active confirmed Problem Advanced maternal age, 1st O09.519 Act jodee confirmed 75899631 Problem Left ovarian cyst N83.202 Active confirmed 1 [id number] ALLERGIES Allergen (clinical drug ingredient) Drug/Non Drug Allergy do cumented on EMR Reaction Allergy Type Onset Date Status Seasonal Unknown Non Drug Allergy Active ENCOUNTERS from 1982 to 2021-02-12 Encounter Location Date Provider Diagnosis [facility] [address] [facility] [phone] [place] [address] Feb, Pritesh Bermudez Nausea with vomiting , unspecified R11.2 and Allergic rhinitis, unspecified J30.9 IMMUNIZATIONS No Information SOCIAL HISTORY Tobacco Use: Social History Observation Description Date Details (start date - stop date) Never Smoker Sex Assigned At : Social History Observation Description Sex Assigned At Unknown Tobacco Use: Question Answer Notes Are you a: never smoker REASON FOR REFERRAL No Information VITAL SIGNS No information MEDICATIONS Medication SIG (Take, Route, Frequency, Duration) Notes Start Da te End Date Status Effexor XR 37.5 MG 1 capsule with food Orally Once a day Active Reglan 5 MG 1 tablet before meals Orally Twice a day for 30 day(s) Dec, Not-Taking ZyrTEC Allergy 10 MG 1 tablet Orally Once a day for 30 day(s) Feb, Active Zofran 4 MG 1 tablet Orally Once a day for 30 day(s) 2020 Active Promethazine HCl 25 MG 1 tablet as needed Orally every 12 hrs fo r 30 day(s) Dec, Active Neti Pot Sinus Wash 2300-700 MG as directed Nasally bid for 10 d ay(s) Jul, Not-Taking Vitamin 27-0.8 MG 1 tablet Orally Once a day Active Ondansetron 4 MG 1 tablet on the tongue and a llow to dissolve Orally every 8 hours as needed for 30 day(s) Feb, Ac tive Ondansetron 8 MG 1 tablet on the tongue and a llow to dissolve as needed Orally every 6 hours as needed for nausea for 60 day(s) Jan, Active Tamiflu 75 MG 1 capsule Orally Twice a day for 5 day(s) Jul, Not-Taking Effexor 75 MG 1 tablet with food Orally Once a day Not-Taking Dramamine 50 MG 1 tablet as needed Orally every 6 hrs Active Sudafed 30 MG 1 tablet as needed Orally every 6 hrs for 5 day(s) Jul, Not-Taking Claritin 10 MG 1 tablet Orally Once a day Not-Taking PROCEDURES No Information RESULTS No Results REASON FOR VISIT ?s MEDICAL (GENERAL) HISTORY Type Description Date Medical History anxiety Surgical History LEE 2018 Goals Section No Information Health Concerns No Information MEDICAL EQUIPMENT No Information MENTAL STATUS No Information FUNCTIONAL STATUS No Information ASSESSMENTS Encounter Date Diagnosis Assessment Notes Treatment Notes Treatm ent Clinical Notes Feb, Nausea with vomiting, unspecified (ICD-10 - R11. 2) Feb, Allergic rhinitis, unspecified (ICD-10 - J30.9) PLAN OF TREATMENT Medication Medication Name Sig Start Date Stop Date Ondansetron 4 MG 1 tablet on the tongue and a llow to dissolve Orally every 8 hours as needed for 30 day(s) Feb, ZyrTEC Allergy 10 MG 1 tablet Orally Once a day for 30 day(s) Feb, Ondansetron 8 MG 1 tablet on the tongue and a llow to dissolve as needed Orally every 6 hours as needed for nausea for 60 day(s) Jan, Next Appt Details Provider Name:Pritesh Bermudez, 12:45:00 AM, [address] [facility], , [place], [address], Insurance Providers Payer Name Payer Address Payer Phone Insured Name Patient Relati onship to Insured Coverage Start Date Coverage End Date [facility] [address] [address] [facility] [phone] MISHA SIDDIQI
--- OUTSIDE RECORDS SUMMARY | 2021-05-08 10:00 | CCD ---
Author Author [facility] Organization [facility] em[facility] Address Unknown Phone Unavailable Care Team Providers Care Tile Sorter Name Role Phone Pritesh Bermudez Unavailable PROBLEMS Type Condition ICD9-CM Code [id number] Code Onset Dates Condition S tatus W/U Status Risk SNOMED Code Notes Problem 11 weeks gestation of Z3A.11 Active confi rmed 32477327 Problem Allergic rhinitis, unspecified J30.9 Active confir med 34238455 Problem Supervision of other normal Z34.80 Ac tive confirm 283572407 Problem Maternal care for other abnormalities of pelvic organs, first trimester O34.81 Active confirmed Problem Advanced maternal age, 1st O09.519 Act jodee confirmed 63222505 Problem Left ovarian cyst N83.202 Active confirmed 1 [id number] ALLERGIES Allergen (clinical drug ingredient) Drug/Non Drug Allergy do cumented on EMR Reaction Allergy Type Onset Date Status Seasonal Unknown Non Drug Allergy Active ENCOUNTERS from 1982 to 2021-02-25 Encounter Location Date Provider Diagnosis [facility] [address] [facility] [phone] [place] [address] Feb, Pritesh Bermudez Advanced maternal ag e, 1st O09.519 IMMUNIZATIONS No Information SOCIAL HISTORY Tobacco Use: Social History Observation Description Date Details (start date - stop date) Never Smoker Sex Assigned At : Social History Observation Description Sex Assigned At Unknown Tobacco Use: Question Answer Notes Are you a: never smoker REASON FOR REFERRAL No Information VITAL SIGNS Weight 132.2 lbs Feb, Height 63 in Feb, BMI 23.418 kg/m2 Feb, Blood pressure systolic 112 mm Hg Feb, Blood pressure diastolic 70 mm Hg Feb, MEDICATIONS Medication SIG (Take, Route, Frequency, Duration) Notes Start Da te End Date Status Neti Pot Sinus Wash 2300-700 MG as directed Nasally bid for 10 d ay(s) Jul, Not-Taking Vitamin 27-0.8 MG 1 tablet Orally Once a day Active Promethazine HCl 25 MG 1 tablet as needed Orally every 12 hrs fo r 30 day(s) Dec, Not-Taking Dramamine 50 MG 1 tablet as needed Orally every 6 hrs Not-Taking Zofran 4 MG 1 tablet Orally Once a day for 30 day(s) 2020 Not-Taking Effexor 75 MG 1 tablet with food Orally Once a day Not-Taking Claritin 10 MG 1 tablet Orally Once a day Not-Taking Effexor XR 37.5 MG 1 capsule with food Orally Once a day Active ZyrTEC Allergy 10 MG 1 tablet Orally Once a day for 30 day(s) Feb, Active Sudafed 30 MG 1 tablet as needed Orally every 6 hrs for 5 day(s) Jul, Not-Taking Reglan 5 MG 1 tablet before meals Orally Twice a day for 30 day(s) Dec, Not-Taking Ondansetron 8 MG 1 tablet on the tongue and a llow to dissolve as needed Orally every 6 hours as needed for nausea for 60 day(s) Jan, Not-Taking Tamiflu 75 MG 1 capsule Orally Twice a day for 5 day(s) Jul, Not-Taking Ondansetron 4 MG 1 tablet on the tongue and a llow to dissolve Orally every 8 hours as needed for 30 day(s) Feb, Ac tive PROCEDURES No Information RESULTS No Results REASON FOR VISIT 4 wk pn MEDICAL (GENERAL) HISTORY Type Description Date Medical History anxiety Surgical History LEEP 2018 Goals Section No Information Health Concerns No Information MEDICAL EQUIPMENT No Information MENTAL STATUS No Information FUNCTIONAL STATUS No Information ASSESSMENTS Encounter Date Diagnosis Assessment Notes Treatment Notes Treatm ent Clinical Notes Feb, Advanced maternal age, 1st (ICD-10 - O 09.519) PLAN OF TREATMENT Treatment Notes Test Name Order Date WW OBS COMPLETE US 2021-02-21 Next Appt Details 2-4 weeks w/ Bermudez ok to double book Shabnam son: Provider Name:Pritesh Cardenasa, 07:45:00 AM, [address] [facility], , [place], [address], Insurance Providers Payer Name Payer Address Payer Phone Insured Name Patient Relati onship to Insured Coverage Start Date Coverage End Date [facility] [address] [address] [facility] [phone] MISHA SIDDIQI self
--- OUTSIDE RECORDS SUMMARY | 2021-05-08 10:00 | CCD ---
Author Author [facility] ems Organization [facility] ems Address Unknown Phone Unavailable Care Team Providers Care Motor Vehicle Representative Name Role Phone Pritesh Bermudez Unavailable PROBLEMS Type Condition ICD9-CM Code [id number] Code Onset Dates Condition S tatus W/U Status Risk SNOMED Code Notes Problem 11 weeks gestation of Z3A.11 Active confi rmed 14895679 Problem Allergic rhinitis, unspecified J30.9 Active confir med 65210879 Problem Supervision of other normal Z34.80 Ac tive confirm 072790308 Problem Maternal care for other abnormalities of pelvic organs, first trimester O34.81 Active confirmed Problem Advanced maternal age, 1st O09.519 Act jodee confirmed 55006449 Problem Left ovarian cyst N83.202 Active confirmed 1 [id number] ALLERGIES Allergen (clinical drug ingredient) Drug/Non Drug Allergy do cumented on EMR Reaction Allergy Type Onset Date Status Seasonal Unknown Non Drug Allergy Active ENCOUNTERS from 1982 to 2021-03-11 Encounter Location Date Provider Diagnosis [facility] [facility] [phone] [place] [address] Mar, Pritesh Bermudez IMMUNIZATIONS No Information SOCIAL HISTORY Tobacco Use: [...] Information RESULTS No Results REASON FOR VISIT diarrhea MEDICAL (GENERAL) HISTORY Type Description Date Medical History anxiety Surgical History LEE 2018 Goals Section No Information Health Concerns No Information MEDICAL EQUIPMENT No Information MENTAL STATUS No Information FUNCTIONAL STATUS No Information ASSESSMENTS No Information PLAN OF TREATMENT Next Appt Details Provider Name:Pritesh Bermudez, 07:45:00 AM, [address] [facility], , [place], [address], Insurance Providers Payer Name Payer Address Payer Phone Insured Name Patient Relati onship to Insured Coverage Start Date Coverage End Date [facility] [address] [address] [facility] [phone] MISHA SIDDIQI
--- OUTSIDE RECORDS SUMMARY | 2021-05-08 10:00 | CCD ---
Author Author [facility] Sy[facility] ems Organization [facility] ems Address Unknown Phone Unavailable Care Team Providers Care Interface Control Officer Name Role Phone Pritesh Bermudez Unavailable PROBLEMS Type Condition ICD9-CM Code [id number] Code Onset Dates Condition S tatus W/U Status Risk SNOMED Code Notes Problem 11 weeks gestation of Z3A.11 Active confi rmed 88582510 Problem Allergic rhinitis, unspecified J30.9 Active confir med 38183020 Problem Supervision of other normal Z34.80 Ac tive confirm 836160172 Problem Maternal care for other abnormalities of pelvic organs, first trimester O34.81 Active confirmed Problem Advanced maternal age, 1st O09.519 Act jodee confirmed 33824371 Problem Left ovarian cyst N83.202 Active confirmed 1 [id number] ALLERGIES Allergen (clinical drug ingredient) Drug/Non Drug Allergy do cumented on EMR Reaction Allergy Type Onset Date Status Pollen Pollen Unknown Drug Allergy Active ENCOUNTERS from 1982 to 2021-04-28 Encounter Location Date Provider Diagnosis [facility] [address] [place] [address] [place] [address] Apr, Pritesh Bermudez IMMUNIZATIONS Vaccine Route Administration Date Status Influenza 6mo & up Fluzone IM Intramuscular Mar 31, 2021 Admi nistered SOCIAL HISTORY Tobacco Use: Social History Observation Description Date Details (start date - stop date) Never Smoker Sex Assigned At : Social History Observation Description Sex Assigned At Unknown Tobacco Use: Question Answer Notes Are you a: never smoker REASON FOR REFERRAL No Information VITAL SIGNS No information MEDICATIONS Medication SIG (Take, Route, Frequency, Duration) Notes Start Da te End Date Status Dramamine 50 MG 1 tablet as needed Orally every 6 hrs Not-Taking ZyrTEC Allergy 10 MG 1 tablet Orally Once a day for 30 day(s) Feb, Not-Taking Effexor XR 37.5 MG 1 capsule with food Orally Once a day Active MiraLax 17 GM 1 packet mixed with 8 ounces of fluid Orally Once a day Active Ondansetron 8 MG 1 tablet on the tongue and a llow to dissolve as needed Orally every 6 hours as needed for nausea for 60 day(s) Jan, Not-Taking Reglan 5 MG 1 tablet before meals Orally Twice a day for 30 day(s) Dec, Not-Taking Zofran 4 MG 1 tablet Orally Once a day for 30 day(s) 2020 Not-Taking Vitamin 27-0.8 MG 1 tablet Orally Once a day Active Neti Pot Sinus Wash 2300-700 MG as directed Nasally bid for 10 d ay(s) Jul, Not-Taking Effexor 75 MG 1 tablet with food Orally Once a day Not-Taking Ondansetron 4 MG 1 tablet on the tongue and a llow to dissolve Orally every 8 hours as needed for 30 day(s) Feb, Ac tive Claritin 10 MG 1 tablet Orally Once a day Not-Taking Sudafed 30 MG 1 tablet as needed Orally every 6 hrs for 5 day(s) Jul, Not-Taking Promethazine HCl 25 MG 1 tablet as needed Orally every 12 hrs fo r 30 day(s) Dec, Not-Taking Colace 100 MG 1 capsule as needed Orally Once a day Not-Taking Tamiflu 75 MG 1 capsule Orally Twice a day for 5 day(s) Jul, Not-Taking PROCEDURES No Information RESULTS No Results REASON FOR VISIT echo MEDICAL (GENERAL) HISTORY Type Description Date Medical History anxiety Surgical History LEEP 2018 Goals Section No Information Health Concerns No Information MEDICAL EQUIPMENT No Information MENTAL STATUS No Information FUNCTIONAL STATUS No Information ASSESSMENTS No Information PLAN OF TREATMENT No Information Insurance Providers Payer Name Payer Address Payer Phone Insured Name Patient Relati onship to Insured Coverage Start Date Coverage End Date [facility] [address] [address] [facility] [phone] MISHA SIDDIQI self
--- OUTSIDE RECORDS SUMMARY | 2021-05-08 10:00 | CCD | Continuity of Care Document ---
Author Author Hardener Helper, Shanae System Organization Unknown Address Unknown Phone Unavailable Care Team Providers Care Pharmacy Data Analyst Name Role Phone Bermudez Noel CARREON Unavailable Problems No Problem Information Available Allergies and Adverse Reactions No Allergy Information Available Medications No Medication Information Available Social History No Social History Information Available Tobacco smoking consumption unknown Female Plan of Treatment Medical; NEW PATIENT 20MIN - family hx Start: 07-Aug-2021 Appointment Request of heart disease 11:40 [facility] MD Geena Nicolas Results No Known Results No Result Information Available Vital Signs No Vital Observation Information Available Payers [employer] Group Number: NONE [address] [address] [facility] [id number] 1 tel: Shanae Parkertyson [address] [place] [address] tel:
--- OUTSIDE RECORDS SUMMARY | 2021-05-08 10:00 | CCD | Continuity of Care Document ---
Author Author Dog Track Kennel Manager, Shanae System Organization Unknown Address Unknown Phone Unavailable Care Team Providers Care Pharmacy Student Name Role Phone Noel Bermudez DO Unavailable Noel Bermudez DO Unavailable Geena Nicolas MD Unavailable Problems No Problem Information Available Allergies and Adverse Reactions No Allergy Information Available Medications No Medication Information Available Social History No Social History Information Available Tobacco smoking consumption unknown Female Plan of Treatment Medical; ECHO - 21.4 weeks/ Start: 14-Jul-2021 Ham ointment Request family hx of heart disease 15:00 [facility] ECHO, Echo Results No Known Results No Result Information Available Vital Signs No Vital Observation Information Available Payers [employer] Group Number: [id number] [address] [address] [facility] [id number] 1 tel: Shanae Sutton [id number] [place], [place] [address] tel:
--- OUTSIDE RECORDS SUMMARY | 2021-05-08 10:00 | CCD ---
Author Author [facility] ems Organization [facility] em[facility] Address Unknown Phone Unavailable Care Team Providers Care Print Binding Worker Name Role Phone Pritesh Bermudez Unavailable PROBLEMS ALLERGIES ENCOUNTERS from 1982 to 2021-04-18 IMMUNIZATIONS SOCIAL HISTORY REASON FOR REFERRAL No Information VITAL SIGNS MEDICATIONS PROCEDURES No Information RESULTS No Results REASON FOR VISIT MEDICAL (GENERAL) HISTORY Goals Section Health Concerns MEDICAL EQUIPMENT No Information MENTAL STATUS FUNCTIONAL STATUS ASSESSMENTS No Information PLAN OF TREATMENT Insurance Providers
--- OUTSIDE RECORDS SUMMARY | 2021-05-08 10:00 | CCD | Continuity of Care Document ---
Author Author Detail Supervisor, Shanae System Organization Unknown Address Unknown Phone Unavailable Care Team Providers Care Real Estate Utilization Officer Name Role Phone Noel Bermudez DO Unavailable Problems No Problem Information Available Allergies and Adverse Reactions No Allergy Information Available Medications No Medication Information Available Social History No Social History Information Available Tobacco smoking consumption unknown Female Results No Known Results No Result Information Available Vital Signs No Vital Observation Information Available Payers [employer] Group Number: NONE [address] [address] [facility] [id number] 1 tel: Shanae Sutton [address] [place] [address] tel:
--- OUTSIDE RECORDS SUMMARY | 2021-05-08 10:00 | CCD ---
Author Author [facility] ems Organization [facility] ems Address Unknown Phone Unavailable Care Team Providers Care Hospice Nurse Practitioner Name Role Phone Pritesh Bermudez Unavailable PROBLEMS Type Condition ICD9-CM Code [id number] Code Onset Dates Condition S tatus W/U Status Risk SNOMED Code Notes Problem 11 weeks gestation of Z3A.11 Active confi rmed 77330100 Problem Allergic rhinitis, unspecified J30.9 Active confir med 44893381 Problem Supervision of other normal Z34.80 Ac tive confirm 130579204 Problem Maternal care for other abnormalities of pelvic organs, first trimester O34.81 Active confirmed Problem Advanced maternal age, 1st O09.519 Act jodee confirmed 24487935 Problem Left ovarian cyst N83.202 Active confirmed 1 [id number] ALLERGIES Allergen (clinical drug ingredient) Drug/Non Drug Allergy do cumented on EMR Reaction Allergy Type Onset Date Status Pollen Pollen Unknown Drug Allergy Active ENCOUNTERS from 1982 to 2021-03-25 Encounter Location Date Provider Diagnosis [facility] [facility] [phone] [place] [address] Mar, Pritesh Bermudez IMMUNIZATIONS No Information SOCIAL [...] Information RESULTS No Results REASON FOR VISIT No Information MEDICAL (GENERAL) HISTORY Type Description Date Medical History anxiety Surgical History LEE 2018 Goals Section No Information Health Concerns No Information MEDICAL EQUIPMENT No Information MENTAL STATUS No Information FUNCTIONAL STATUS No Information ASSESSMENTS No Information PLAN OF TREATMENT Next Appt Details Provider Name:Pritesh Noel Bermudez, 07:45:00 AM, [address] [facility], , [place], [address], Insurance Providers Payer Name Payer Address Payer Phone Insured Name Patient Relati onship to Insured Coverage Start Date Coverage End Date [facility] [address] [address] [facility] [phone] MISHA SIDDIQI
--- OUTSIDE RECORDS SUMMARY | 2021-05-08 10:00 | CCD ---
Author Author [facility] em[facility] Organization [facility] Address Unknown Phone Unavailable Care Team Providers Care Special Delivery Mail Carrier Name Role Phone Pritesh Bermudez Unavailable PROBLEMS Type Condition ICD9-CM Code MSY24-CR Code Onset Dates Condition S tatus W/U Status Risk SNOMED Code Notes Problem 11 weeks gestation of Z3A.11 Active confi rmed 99298660 Problem Allergic rhinitis, unspecified J30.9 Active confir med 98233245 Problem Supervision of other normal Z34.80 Ac tive confirm 643029555 Problem Maternal care for other abnormalities of pelvic organs, first trimester O34.81 Active confirmed Problem Advanced maternal age, 1st O09.519 Act jodee confirmed 31038999 Problem Left ovarian cyst N83.202 Active confirmed 1 [id number] ALLERGIES Allergen (clinical drug ingredient) Drug/Non Drug Allergy do cumented on EMR Reaction Allergy Type Onset Date Status Pollen Pollen Unknown Drug Allergy Active ENCOUNTERS from 1982 to 2021-03-25 Encounter Location Date Provider Diagnosis [facility] [facility] [phone] [place] [address] Mar, Pritesh Bermudez IMMUNIZATIONS No Information SOCIAL [...] Information RESULTS No Results REASON FOR VISIT hemorrhoids MEDICAL (GENERAL) HISTORY Type Description Date Medical History anxiety Surgical History LEE 2018 Goals Section No Information Health Concerns No Information MEDICAL EQUIPMENT No Information MENTAL STATUS No Information FUNCTIONAL STATUS No Information ASSESSMENTS No Information PLAN OF TREATMENT Next Appt Details Provider Name:Pritesh Bermudez, 07:45:00 AM, [address] [facility], , [place], [address], Insurance Providers Payer Name Payer Address Payer Phone Insured Name Patient Relati onship to Insured Coverage Start Date Coverage End Date [facility] [address] [address] [facility] [phone] IMSHA SIDDIQI
--- OUTSIDE RECORDS SUMMARY | 2021-05-08 10:00 | CCD ---
Author Author [facility] Organization [facility] Address Unknown Phone Unavailable Care Team Providers Care Legal Technician Name Role Phone Pritesh Bermudez Unavailable PROBLEMS Type Condition ICD9-CM Code [id number] Code Onset Dates Condition S tatus W/U Status Risk SNOMED Code Notes Problem 11 weeks gestation of Z3A.11 Active confi rmed [id number] Problem Allergic rhinitis, unspecified J30.9 Active confir med [id number] Problem Supervision of other normal Z34.80 Ac tive confirm [id number] Problem Maternal care for other abnormalities of pelvic organs, first trimester O34.81 Active confirmed Problem Advanced maternal age, 1st O09.519 Act jodee confirmed [id number] Problem Left ovarian cyst N83.202 Active confirmed 1 [id number] ALLERGIES Allergen (clinical drug ingredient) Drug/Non Drug Allergy do cumented on EMR Reaction Allergy Type Onset Date Status Pollen Pollen Unknown Drug Allergy Active ENCOUNTERS from 1982 to 2021-04-02 Encounter Location Date Provider Diagnosis [facility] [address] [facility] [phone] [place] [address] Mar, Pritesh Bermudez Advanced maternal ag e, primigravida in second trimester, antepartum O09.512 ; Other mental disorders complicating , second trimester O99.342 ; Depression, unspecified F32.A ; 21 weeks gestation of Z3A.21 ; Left ovarian cyst N83.202 and Encounter for immunization Z23 IMMUNIZATIONS Vaccine Route Administration Date Status Influenza [...] FOR REFERRAL No Information VITAL SIGNS Weight 135 lbs Mar, Height 63 in Mar, BMI 23.91 kg/m2 Mar, Blood pressure systolic 98 mm Hg Mar, Blood pressure diastolic 52 mm Hg Mar, MEDICATIONS Medication SIG (Take, Route, Frequency, Duration) Notes Start Da te End Date Status Promethazine HCl 25 MG 1 tablet as needed Orally every 12 hrs fo r 30 day(s) Dec, Not-Taking Colace 100 MG 1 capsule as needed Orally Once a day Active ZyrTEC Allergy 10 MG 1 tablet Orally Once a day for 30 day(s) Feb, Not-Taking Ondansetron 4 MG 1 tablet on the tongue and a llow to dissolve Orally every 8 hours as needed for 30 day(s) Feb, Ac tive Tamiflu 75 MG 1 capsule Orally Twice a day for 5 day(s) Jul, Not-Taking Sudafed 30 MG 1 tablet as needed Orally every 6 hrs for 5 day(s) Jul, Not-Taking Effexor XR 37.5 MG 1 capsule with food Orally Once a day Active Claritin 10 MG 1 tablet Orally Once a day Not-Taking Dramamine 50 MG 1 tablet as needed Orally every 6 hrs Not-Taking Zofran 4 MG 1 tablet Orally Once a day for 30 day(s) 2020 Not-Taking Effexor 75 MG 1 tablet with food Orally Once a day Not-Taking Neti Pot Sinus Wash 2300-700 MG as directed Nasally bid for 10 d ay(s) Jul, Not-Taking Vitamin 27-0.8 MG 1 tablet Orally Once a day Active Reglan 5 MG 1 tablet before meals Orally Twice a day for 30 day(s) Dec, Not-Taking Ondansetron 8 MG 1 tablet on the tongue and a llow to dissolve as needed Orally every 6 hours as needed for nausea for 60 day(s) Jan, Not-Taking PROCEDURES from 1982 to 2021-04-02 Procedure Date Ordered Result Body Site Imm: Fluzone 6mo & older 0.5mL IM Influenza 2021-03-31 N/A RESULTS No Results REASON FOR VISIT 4WK PN MEDICAL (GENERAL) HISTORY Type Description Date Medical History anxiety Surgical History LEEP 2018 Goals Section No Information Health Concerns No Information MEDICAL EQUIPMENT No Information MENTAL STATUS No Information FUNCTIONAL STATUS No Information ASSESSMENTS Encounter Date Diagnosis Assessment Notes Treatment Notes Treatm ent Clinical Notes Mar, Other mental disorders compl icating , second trimester (ICD-10 - O99.342) Mar, Advanced maternal age, primi in second trimester, antepartum (ICD-10 - O09.512) Mar, Depression, unspecified (ICD-10 - F32.A) Mar, 21 weeks gestation of (ICD-10 - Z3A.21 ) Mar, Left ovarian cyst (ICD-10 - N83.202) Mar, Encounter for immunization (ICD-10 - Z23) PLAN OF TREATMENT Treatment Notes Test Name Order Date CBC - Complete Blood Count 2021-03-31 Type and Screen (D Rh Antibody Screen) 2021-03-31 Glucose Challenge Test 1 Hour 2021-03-31 Next Appt Details 4 Weeks Reason: Provider Name:Pritesh Bermudez, 08:00:00 AM, [address] [facility], , [place], [address], Follow Up:4 WeeksPrenatal Insurance Providers Payer Name Payer Address Payer Phone Insured Name Patient Relati onship to Insured Coverage Start Date Coverage End Date [facility] [address] [address] [facility] [id number] MISHA SIDDIQI
--- OUTSIDE RECORDS SUMMARY | 2021-05-08 10:00 | CCD ---
Author Author [facility] Organization [facility] Address Unknown Phone Unavailable Care Team Providers Care Compliance Lead Name Role Phone Pritesh Bermudez Unavailable PROBLEMS Type Condition ICD9-CM Code [id number] Code Onset Dates Condition S tatus W/U Status Risk SNOMED Code Notes Problem 11 weeks gestation of Z3A.11 Active confi rmed [id number] Problem Allergic rhinitis, unspecified J30.9 Active confir med 46981147 Problem Supervision of other normal Z34.80 Ac tive confirm [id number] Problem Maternal care for other abnormalities of pelvic organs, first trimester O34.81 Active confirmed Problem Advanced maternal age, 1st O09.519 Act jodee confirmed 15807280 Problem Left ovarian cyst N83.202 Active confirmed 1 [id number] ALLERGIES Allergen (clinical drug ingredient) Drug/Non Drug Allergy do cumented on EMR Reaction Allergy Type Onset Date Status Pollen Pollen Unknown Drug Allergy Active ENCOUNTERS from 1982 to 2021-04-29 Encounter Location Date Provider Diagnosis [facility] [address] [place] [address] [place] [address] Apr, Pritesh Bermudez IMMUNIZATIONS Vaccine Route Administration [...] Information RESULTS No Results REASON FOR VISIT NEEDS 3 WK APPT MEDICAL (GENERAL) HISTORY Type Description Date Medical History anxiety Surgical History LEEP 2018 Goals Section No Information Health Concerns No Information MEDICAL EQUIPMENT No Information MENTAL STATUS No Information FUNCTIONAL STATUS No Information ASSESSMENTS No Information PLAN OF TREATMENT Next Appt Details Provider Name:Pritesh Bermudez, 02:00:00 PM, [address] [facility], , [place], [address], Insurance Providers Payer Name Payer Address Payer Phone Insured Name Patient Relati onship to Insured Coverage Start Date Coverage End Date [facility] [address] [address] [facility] [phone] MISHA SIDDIQI self
--- OUTSIDE RECORDS SUMMARY | 2021-05-08 10:00 | CCD | Continuity of Care Document ---
Author Author Senior Controller, [facility] Organization Unknown Address Unknown Phone Unavailable Care Team Providers Care Rug Receiving Clerk Name Role Phone Bermudez Noel CARREON Unavailable Problems No Problem Information Available Allergies and Adverse Reactions No Allergy Information Available Medications No Medication Information Available Social History No Social History Information Available Tobacco smoking consumption unknown Female Plan of Treatment Medical; NEW PATIENT 20MIN - family hx Start: 07-Aug-2021 Appointment Request of heart disease 11:40 [facility] MD Geena Nicolas Results No Known Results No Result Information Available Vital Signs No Vital Observation Information Available Payers [employer] Number: [id number] [address] [address] [facility] [id number] tel: Shanae Parkertyson [address] [place] [address] tel:
--- OUTSIDE RECORDS SUMMARY | 2021-05-08 10:01 | CCD ---
Author Author [facility] Organization [facility] Address Unknown Phone Unavailable Care Team Providers Care Sign Maker Name Role Phone Shane, Zuri BOTTLING SUPERVISOR Unavailable Unavailable Shane, Zuri BOTTLING SUPERVISOR Unavailable Unavailable Shane, Zuri BOTTLING SUPERVISOR Unavailable Unavailable Shane, Zuri BOTTLING SUPERVISOR Unavailable Unavailable Shane, Zuri BOTTLING SUPERVISOR Unavailable Unavailable Shane, Zuri BOTTLING SUPERVISOR Unavailable Unavailable Shane, Zuri BOTTLING SUPERVISOR Unavailable Unavailable Shane, Zuri BOTTLING SUPERVISOR Unavailable Unavailable Shane, Zuri BOTTLING SUPERVISOR Unavailable Unavailable Shane, Zuri BOTTLING SUPERVISOR Unavailable Unavailable Shane, Zuri BOTTLING SUPERVISOR Unavailable Unavailable Shane, Zuri BOTTLING SUPERVISOR Unavailable Unavailable Shane, Zuri BOTTLING SUPERVISOR Unavailable Unavailable Petrancosta, Harding Kellen PA-C Unavailable Unavailabl e Petrancosta, Harding Kellen PA-C Unavailable Unavailabl e Petrancosta, Harding Kellen PA-C Unavailable Unavailabl e Petrancosta, Harding Kellen PA-C Unavailable Unavailabl e Petrancosta, Harding Kellen PA-C Unavailable Unavailabl e Petrancosta, Harding Kellen PA-C Unavailable Unavailabl e Petrancosta, Harding Kellen PA-C Unavailable Unavailabl e Petrancosta, Harding Kellen PA-C Unavailable Unavailabl e Petrancosta, Harding Kellen PA-C Unavailable Unavailabl e Petrancosta, Harding Kellen PA-C Unavailable Unavailabl e Petrancosta, Harding Kellen PA-C Unavailable Unavailabl e Petrancosta, Harding Kellen PA-C Unavailable Unavailabl e Petrancosta, Harding Kellen PA-C Unavailable Unavailabl e Petrancosta, Harding Kellen PA-C Unavailable Unavailabl e Petrancosta, Harding Kellen PA-C Unavailable Unavailabl e Petrancosta, Harding Kellen PA-C Unavailable Unavailabl e Petrancosta, Harding Kellen PA-C Unavailable Unavailabl e Petrancosta, Harding Kellen PA-C Unavailable Unavailabl e Petrancosta, Harding Kellen PA-C Unavailable Unavailabl e Petrancosta, Harding Kellen PA-C Unavailable Unavailabl e Petrancosta, Harding Kellen PA-C Unavailable Unavailabl e Petrancosta, Harding Kellen PA-C Unavailable Unavailabl e Petrancosta, Harding Kellen PA-C Unavailable Unavailabl e Petrancosta, Harding Kellen PA-C Unavailable Unavailabl e Petrancosta, Harding Kellen PA-C Unavailable Unavailabl e LETTIERE, Kilo DONOVAN PA Unavailable Unavailable LETTIERE, Kilo DONOVAN PA Unavailable Unavailable LETTIERE, Kilo DONOVAN PA Unavailable Unavailable LETTIERE, Kilo DONOVAN PA Unavailable Unavailable LETTIERE, Kilo DONOVAN PA Unavailable Unavailable LETTIERE, Kilo DONOVAN PA Unavailable Unavailable LETTIERE, A VENUS PA Unavailable Unavailable LETTIERE, A VENUS PA Unavailable Unavailable LETTIERE, Kilo DONOVAN PA Unavailable Unavailable LETTIERE, A VENUS PA Unavailable Unavailable LETTIERE, Kilo DONOVAN PA Unavailable Unavailable LETTIERE, A VENUS PA Unavailable Unavailable LETTIERE, Kilo DONOVAN PA Unavailable Unavailable LETTIERE, A VENUS PA Unavailable Unavailable LETTIERE, A EVNUS PA Unavailable Unavailable LETTIERE, A VENUS PA [...] Unavailable LETTIERE, A VENUS PA Unavailable Unavailable Pleskach, Katiana CANE PUSHER Unavailable Unavailable Pleskach, Katiana CANE PUSHER Unavailable Unavailable Pleskach, Katiana CANE PUSHER Unavailable Unavailable Pleskach, Katiana CANE PUSHER Unavailable Unavailable Pleskach, Katiana CANE PUSHER Unavailable Unavailable Pleskach, Katiana CANE PUSHER Unavailable Unavailable Pleskach, Katiana CANE PUSHER Unavailable Unavailable Pleskach, Katiana CANE PUSHER Unavailable Unavailable Pleskach, Katiana CANE PUSHER Unavailable Unavailable Pleskach, Katiana CANE PUSHER Unavailable Unavailable Pleskach, Katiana CANE PUSHER Unavailable Unavailable Pleskach, Katiana CANE PUSHER Unavailable Unavailable Pleskach, Katiana CANE PUSHER Unavailable Unavailable Pleskach, Katiana CANE PUSHER Unavailable Unavailable Pleskach, Katiana CANE PUSHER Unavailable Unavailable Pleskach, Katiana CANE PUSHER Unavailable Unavailable Pleskach, Katiana CANE PUSHER Unavailable Unavailable Pleskach, Katiana CANE PUSHER Unavailable Unavailable Pleskach, Katiana CANE PUSHER Unavailable Unavailable Pleskach, Katiana CANE PUSHER Unavailable Unavailable Pleskach, Katiana CANE PUSHER Unavailable Unavailable Pleskach, Katiana CANE PUSHER Unavailable Unavailable Pleskach, Katiana CANE PUSHER Unavailable Unavailable Pleskach, Katiana CANE PUSHER Unavailable Unavailable Pleskach, Katiana CANE PUSHER Unavailable Unavailable Pleskach, Katiana CANE PUSHER Unavailable Unavailable Pleskach, Katiana CANE PUSHER Unavailable Unavailable Pleskach, Katiana CANE PUSHER Unavailable Unavailable Pleskach, Katiana CANE PUSHER Unavailable Unavailable Pleskach, Katiana CANE PUSHER Unavailable Unavailable Pleskach, Katiana CANE PUSHER Unavailable Unavailable Pleskach, Katiana CANE PUSHER Unavailable Unavailable Pleskach, Katiana CANE PUSHER Unavailable Unavailable Pleskach, Katiana CANE PUSHER Unavailable Unavailable Pleskach, Katiana CANE PUSHER Unavailable Unavailable Pleskach, Katiana CANE PUSHER Unavailable Unavailable Pleskach, Katiana CANE PUSHER Unavailable Unavailable Pleskach, Katiana CANE PUSHER Unavailable Unavailable Pleskach, Katiana CANE PUSHER Unavailable Unavailable Pleskach, Katiana CANE PUSHER Unavailable Unavailable Pleskach, Katiana CANE PUSHER Unavailable Unavailable Pleskach, Katiana CANE PUSHER Unavailable Unavailable Pleskach, Katiana CANE PUSHER Unavailable Unavailable Pleskach, Katiana CANE PUSHER Unavailable Unavailable Re-disclosure Warning The records that [...] is protected by Article 27-F of the [facility] Public Health law. If you continue you may have access to information: Regarding HIV / AIDS; Provided by facilities licensed or operated by the [facility] Office of Mental Health; or Provided by the [facility] Office for People With Developmental Disabilities. If such information is present, then the following [facility] mandated warning applies: This information has [...] law may result in a fine or group home sentence or both. A general authorization for the release of medical or other information is NOT sufficient authorization for further disc losure. Family History Family Member Name Family Member Gender Family Member Status Date o f Status Description Data Source(s) Unknown Unknown Problem MEDENT ([facility], ) Unknown Unknown Problem MEDENT ([facility] Unknown Male Problem MEDENT ([facility]) Unknown Unknown Problem MEDENT ([facility]) mgm,pgm Encounters Encounter Providers Location Date Indications Data Source(s ) Unknown [address] [facility] [address] 04/28/2021 12:00:00 AM EST eCW1 ([facility]) Unknown [address] [facility] [place] [address] 04/22/2021 12:00:00 AM EST eCW1 ([facility]) [place] [address] [facility] [address] 04/18/2021 12:00:00 AM EST eCW1 ([facility]) ( ESTOB) [facility] [address] [place] [address] 03/31/2021 12:00:00 AM EDT eCW1 ([facility]) [place] [address] [facility] [address] 03/25/2021 12:00:00 AM EDT eCW1 ([facility]) [place] [address] [facility] [place] [address] 03/24/2021 12:00:00 AM EDT eCW1 ([facility]) Unknown [address] [facility] [place] [address] 03/10/2021 12:00:00 AM EDT eCW1 ([facility]) ( ESTOB) [facility] [address] [place] [address] 02/21/2021 12:00:00 AM EDT eCW1 ([facility]) Unknown [address] [facility] [place] [address] 02/06/2021 12:00:00 AM EDT eCW1 ([facility]) Outpatient 01/18/2021 09:03:08 AM EDT - 021 09:11:46 AM EDT [facility]ap ([facility]) (WC ESTOB) [facility] [address] [place] [address] 01/17/2021 12:00:00 AM EDT eCW1 ([facility]) ( ESTOB) [facility] [address] [place] [address] 01/02/2021 12:00:00 AM EDT eCW1 ([facility]) ( ESTOB) [facility] [address] [place] [address] 12/16/2020 12:00:00 AM EDT eCW1 ([facility]) [place] [address] [facility] [address] 12/13/2020 12:00:00 AM EDT eCW1 ([facility]) [place] [address] [facility] [address] 12/12/2020 12:00:00 AM EDT eCW1 ([facility]) Unknown [address] [facility] [address] 12/10/2020 12:00:00 AM EDT eCW1 ([facility]) Unknown [address] [facility] [address] 12/03/2020 12:00:00 AM EDT eCW1 ([facility]) Outpatient [address] [facility] [place] [address] 11/15/2020 12:00:00 AM EDT eCW1 ([facility]) Outpatient Attender: Kellen Garland PA-C Main Office 08/01/2020 07:15:00 AM EST MEDENT ([facility] Outpatient Attender: Kellen Garland PA-C Main Office 07/22/2020 08:30:00 AM EST MEDENT ([facility] Outpatient Attender: VENUS luna 05/22/2020 07:30:00 AM EST MEDENT ([facility]) Outpatient Attender: VENUS Bernard cheryl 05/14/2020 07:10:00 AM EST MEDENT ([facility]) Outpatient Attender: Zuri Choe Clementina purvis 03/24/2020 12:00:00 PM EDT MEDENT ([facility] Outpatient Attender: Kellen Garland PA-C Main Office 03/20/2020 02:45:00 PM EDT MEDENT ([facility] Outpatient Attender: Katiana Edwards CANE PUSHER Main Office 03/12/2020 0 1:15:00 PM EDT MEDENT ([facility] Immunizations Vaccine Date Status Description Data Source(s) COVID-19 VACCINE Moderna 04/09/2021 12:00:00 AM EDT completed [facility] Vaccine Series Complete: YESThis Data wa s Submitted to [facility] Via [employer]. New in 2011. IIV4 03/31/2021 03:12:00 PM EDT completed eCW1 ([facility]) New in 2011. IIV4 03/31/2021 03:12:00 PM EDT completed eCW1 ([facility]) New in 2011. IIV4 03/31/2021 03:12:00 PM EDT completed eCW1 ([facility]) New in 2011. IIV4 03/31/2021 03:12:00 PM EDT completed eCW1 ([facility]) COVID-19 VACCINE Moderna 2020 12:00:00 AM EST completed [facility] Vaccine Series Complete: YESThis Data wa s Submitted to [facility] [employer]. COVID-19 VACCINE Moderna 06/27/2020 12:00:00 AM EST completed [facility] Vaccine Series Complete: NOThis Data was Submitted to [facility] [employer]. INFLUENZA VIRUS VACCINE QUADRIVALENT (6 MOS AN D UP) 04/17/2020 12:00:00 AM EST completed [facility] Medications Medication Brand Name Start Date Product Form Dose Route Admi nistrative Instructions Pharmacy Instructions Status Indications Reaction Description Data Source(s) Amoxicillin 875 MG / Clavulanate 125 MG Oral Tablet 87 5-125 mg AMOXICILLIN/POTASSIUM CLAV 03/15/2021 12:00:00 AM EDT tablet 28 TAKE ONE TABLET BY MOUTH TWICE A DAY FOR 14 DAYS TAKE ONE TABLET BY MOUTH TWICE A DAY FOR 14 DAYS SOLD: 03/15/2021 [facility] cetirizine hydrochloride 10 MG Oral Tablet [Zyrtec] Zy rTEC Allergy 10 MG ZyrTEC Allergy 10 MG 02/12/2021 12:00:00 AM EDT 1.0 {tablet} [facility] eCW1 ([facility]) Ondansetron 4 MG Disintegrating Oral Tablet ONDANSETRON 02/12/2021 12:00:00 AM EDT tablet,disintegrating 9 DISSOLVE O NE TABLET ON TONGUE EVERY 8 HOURS NEEDED DISSOLVE ONE TABLET ON TONGUE EVERY 8 HOURS NEEDED SOLD: 03/08 [facility] cetirizine hydrochloride 10 MG Oral Tablet [Zyrtec] Zy rTEC Allergy 10 MG ZyrTEC Allergy 10 MG 02/12/2021 12:00:00 AM EDT 1.0 {tablet} active ZyrTEC Allergy 10 MG eCW1 ([facility]) Ondansetron 4 MG Disintegrating Oral Tablet ONDANSETRON 02/12/2021 12:00:00 AM EDT tablet,disintegrating 9 DISSOLVE O NE TABLET ON TONGUE EVERY 8 HOURS NEEDED DISSOLVE ONE TABLET ON TONGUE EVERY 8 HOURS NEEDED SOLD: 02/05 [facility] cetirizine hydrochloride 10 MG Oral Tablet [Zyrtec] Zy rTEC Allergy 10 MG ZyrTEC Allergy 10 MG 02/12/2021 12:00:00 AM EDT 1.0 {tablet} suspended ZyrTEC Allergy 10 MG eCW1 ([facility]) cetirizine hydrochloride 10 MG Oral Tablet [Zyrtec] Zy rTEC Allergy 10 MG ZyrTEC Allergy 10 MG 02/12/2021 12:00:00 AM EDT 1.0 {tablet} active ZyrTEC Allergy 10 MG eCW1 ([facility]) Ondansetron 4 MG Disintegrating Oral Tablet Ondansetron 4 MG 02/12/2021 12:00:00 AM EDT 1.0 {tablet_on_the_tongue_and_allow_to_dissolve} active Ondansetron 4 MG eCW1 ([facility]) Ondansetron 4 MG Disintegrating Oral Tablet ONDANSETRON 02/12/2021 12:00:00 AM EDT tablet,disintegrating 9 DISSOLVE O NE TABLET ON TONGUE EVERY 8 HOURS NEEDED DISSOLVE ONE TABLET ON TONGUE EVERY 8 HOURS NEEDED SOLD: 01/2021 [facility] Ondansetron 4 MG Disintegrating Oral Tablet Ondansetron 4 MG 02/12/2021 12:00:00 AM EDT 1.0 {tablet_on_the_tongue_and_allow_to_dissolve} active Ondansetron 4 MG eCW1 ([facility]) Ondansetron 4 MG Disintegrating Oral Tablet ONDANSETRON 02/12/2021 12:00:00 AM EDT tablet,disintegrating 9 DISSOLVE O NE TABLET ON TONGUE EVERY 8 HOURS NEEDED DISSOLVE ONE TABLET ON TONGUE EVERY 8 HOURS NEEDED SOLD: 03/07 Scheduling [facility] Ondansetron 4 MG Disintegrating Oral Tablet Ondansetron 4 MG 02/12/2021 12:00:00 AM EDT 1.0 {tablet_on_the_tongue_and_allow_to_dissolve} active Ondansetron 4 MG eCW1 ([facility]) cetirizine hydrochloride 10 MG Oral Tablet [Zyrtec] Zy rTEC Allergy 10 MG ZyrTEC Allergy 10 MG 02/12/2021 12:00:00 AM EDT 1.0 {tablet} active ZyrTEC Allergy 10 MG eCW1 ([facility]) cetirizine hydrochloride 10 MG Oral Tablet [Zyrtec] Zy rTEC Allergy 10 MG ZyrTEC Allergy 10 MG 02/12/2021 12:00:00 AM EDT 1.0 {tablet} active ZyrTEC Allergy 10 MG eCW1 ([facility]) Ondansetron 4 MG Disintegrating Oral Tablet Ondansetron 4 MG 02/12/2021 12:00:00 AM EDT 1.0 {tablet_on_the_tongue_and_allow_to_dissolve} active eCW1 ([facility]) Ondansetron 4 MG Disintegrating Oral Tablet Ondansetron 4 MG 02/12/2021 12:00:00 AM EDT 1.0 {tablet_on_the_tongue_and_allow_to_dissolve} active Ondansetron 4 MG eCW1 ([facility]) Ondansetron 4 MG Disintegrating Oral Tablet ONDANSETRON 02/12/2021 12:00:00 AM EDT tablet,disintegrating 9 DISSOLVE O NE TABLET ON TONGUE EVERY 8 HOURS NEEDED DISSOLVE ONE TABLET ON TONGUE EVERY 8 HOURS NEEDED SOLD: 11/2020 [facility] Ondansetron 4 MG Disintegrating Oral Tablet Ondansetron 4 MG 02/12/2021 12:00:00 AM EDT 1.0 {tablet_on_the_tongue_and_allow_to_dissolve} active Ondansetron 4 MG eCW1 ([facility]) Ondansetron 4 MG Disintegrating Oral Tablet ONDANSETRON 02/12/2021 12:00:00 AM EDT tablet,disintegrating 9 DISSOLVE O NE TABLET ON TONGUE EVERY 8 HOURS NEEDED DISSOLVE ONE TABLET ON TONGUE EVERY 8 HOURS NEEDED SOLD: 04/07 Scheduling [facility] Ondansetron 4 MG Disintegrating Oral Tablet Ondansetron 4 MG 02/12/2021 12:00:00 AM EDT 1.0 {tablet_on_the_tongue_and_allow_to_dissolve} active Ondansetron 4 MG eCW1 ([facility]) Ondansetron 4 MG Disintegrating Oral Tablet Ondansetron 4 MG 02/12/2021 12:00:00 AM EDT 1.0 {tablet_on_the_tongue_and_allow_to_dissolve} active Ondansetron 4 MG eCW1 ([facility]) cetirizine hydrochloride 10 MG Oral Tablet [Zyrtec] Zy rTEC Allergy 10 MG ZyrTEC Allergy 10 MG 02/12/2021 12:00:00 AM EDT 1.0 {tablet} suspended ZyrTEC Allergy 10 MG eCW1 ([facility]) Ondansetron 4 MG Disintegrating Oral Tablet ONDANSETRON 02/12/2021 12:00:00 AM EDT tablet,disintegrating 9 DISSOLVE O NE TABLET ON TONGUE EVERY 8 HOURS NEEDED DISSOLVE ONE TABLET ON TONGUE EVERY 8 HOURS NEEDED SOLD: 06/2020 [facility] cetirizine hydrochloride 10 MG Oral Tablet [Zyrtec] Zy rTEC Allergy 10 MG ZyrTEC Allergy 10 MG 02/12/2021 12:00:00 AM EDT 1.0 {tablet} active ZyrTEC Allergy 10 MG eCW1 ([facility]) Ondansetron 4 MG Disintegrating Oral Tablet Ondansetron 4 MG 02/12/2021 12:00:00 AM EDT 1.0 {tablet_on_the_tongue_and_allow_to_dissolve} active Ondansetron 4 MG eCW1 ([facility]) Ondansetron 4 MG Disintegrating Oral Tablet ONDANSETRON 02/12/2021 12:00:00 AM EDT tablet,disintegrating 9 DISSOLVE O NE TABLET ON TONGUE EVERY 8 HOURS NEEDED DISSOLVE ONE TABLET ON TONGUE EVERY 8 HOURS NEEDED SOLD: 02/06 [facility] cetirizine hydrochloride 10 MG Oral Tablet [Zyrtec] Zy rTEC Allergy 10 MG ZyrTEC Allergy 10 MG 02/12/2021 12:00:00 AM EDT 1.0 {tablet} suspended ZyrTEC Allergy 10 MG eCW1 ([facility]) Ondansetron 4 MG Disintegrating Oral Tablet ONDANSETRON 02/07/2021 12:00:00 AM EDT tablet,disintegrating 9 DISSOLVE ONE TABLET ON TONGUE TWICE A DAY DISSOLVE ONE TABLET ON TONGUE TWICE A DAY SOLD: 02/09/2021 [facility] Ondansetron 8 MG Disintegrating Oral Tablet Ondansetron 8 MG 01/17/2021 12:00:00 AM EDT active Ondansetron 8 MG eCW1 ([facility]) Ondansetron 8 MG Disintegrating Oral Tablet Ondansetron 8 MG 01/17/2021 12:00:00 AM EDT suspended Ondansetron 8 MG eCW1 ([facility]) Ondansetron 8 MG Disintegrating Oral Tablet Ondansetron 8 MG 01/17/2021 12:00:00 AM EDT suspended Ondansetron 8 MG eCW1 ([facility]) Ondansetron 8 MG Disintegrating Oral Tablet Ondansetron 8 MG 01/17/2021 12:00:00 AM EDT suspended Ondansetron 8 MG eCW1 ([facility]) Ondansetron 8 MG Disintegrating Oral Tablet Ondansetron 8 MG 01/17/2021 12:00:00 AM EDT active Ondansetron 8 MG eCW1 ([facility]) Ondansetron 8 MG Disintegrating Oral Tablet Ondansetron 8 MG 01/17/2021 12:00:00 AM EDT suspended eCW1 ( [facility]) Ondansetron 8 MG Disintegrating Oral Tablet Ondansetron 8 MG 01/17/2021 12:00:00 AM EDT suspended Ondansetron 8 MG eCW1 ([facility]) Ondansetron 8 MG Disintegrating Oral Tablet Ondansetron 8 MG 01/17/2021 12:00:00 AM EDT suspended Ondansetron 8 MG eCW1 ([facility]) Ondansetron 8 MG Disintegrating Oral Tablet Ondansetron 8 MG 01/17/2021 12:00:00 AM EDT suspended Ondansetron 8 MG eCW1 ([facility]) Ondansetron 8 MG Disintegrating Oral Tablet Ondansetron 8 MG 01/17/2021 12:00:00 AM EDT suspended Ondansetron 8 MG eCW1 ([facility]) Metoclopramide 5 MG Oral Tablet [Reglan] Reglan 5 MG Reglan 5 MG 01/02/2021 12:00:00 AM EDT 1.0 {tablet_before_meals} suspended eCW1 ([facility]) Metoclopramide 5 MG Oral Tablet [Reglan] Reglan 5 MG Reglan 5 MG 01/02/2021 12:00:00 AM EDT 1.0 {tablet_before_meals} suspended Reglan 5 MG eCW1 ([facility]) 5 mg 01/02/2021 12:00:00 AM EDT tablet 60 TAKE ONE TABLET BY MOUTH TWICE A DAY BEFORE MEALS TAKE ONE TABLET BY MOUTH TWICE A DAY BEFORE MEALS SOLD : 01/02/2021 [facility] Metoclopramide 5 MG Oral Tablet [Reglan] Reglan 5 MG Reglan 5 MG 01/02/2021 12:00:00 AM EDT 1.0 {tablet_before_meals} suspended Reglan 5 MG eCW1 ([facility]) Metoclopramide 5 MG Oral Tablet [Reglan] Reglan 5 MG Reglan 5 MG 01/02/2021 12:00:00 AM EDT 1.0 {tablet_before_meals} suspended Reglan 5 MG eCW1 ([facility]) Metoclopramide 5 MG Oral Tablet [Reglan] Reglan 5 MG Reglan 5 MG 01/02/2021 12:00:00 AM EDT 1.0 {tablet_before_meals} suspended Reglan 5 MG eCW1 ([facility]) Metoclopramide 5 MG Oral Tablet [Reglan] Reglan 5 MG Reglan 5 MG 01/02/2021 12:00:00 AM EDT 1.0 {tablet_before_meals} suspended Reglan 5 MG eCW1 ([facility]) Metoclopramide 5 MG Oral Tablet [Reglan] Reglan 5 MG Reglan 5 MG 01/02/2021 12:00:00 AM EDT 1.0 {tablet_before_meals} active Reglan 5 MG eCW1 ([facility]) Metoclopramide 5 MG Oral Tablet [Reglan] Reglan 5 MG Reglan 5 MG 01/02/2021 12:00:00 AM EDT 1.0 {tablet_before_meals} suspended Reglan 5 MG eCW1 ([facility]) Metoclopramide 5 MG Oral Tablet [Reglan] Reglan 5 MG Reglan 5 MG 01/02/2021 12:00:00 AM EDT 1.0 {tablet_before_meals} suspended Reglan 5 MG eCW1 ([facility]) Metoclopramide 5 MG Oral Tablet [Reglan] Reglan 5 MG Reglan 5 MG 01/02/2021 12:00:00 AM EDT 1.0 {tablet_before_meals} suspended Reglan 5 MG eCW1 ([facility]) Metoclopramide 5 MG Oral Tablet [Reglan] Reglan 5 MG Reglan 5 MG 01/02/2021 12:00:00 AM EDT 1.0 {tablet_before_meals} suspended Reglan 5 MG eCW1 ([facility]) 4 mg 12/16/2020 12:00:00 AM EDT tablet 9 TAKE ONE TABLET BY MOUTH EVERY DAY TAKE ONE TABLET BY MOUTH EVERY DAY SOLD: 12/23/2020 [facility] Ondansetron 4 MG Oral Tablet [Zofran] Zofran 4 MG Zofran 4 M G 12/16/2020 12:00:00 AM EDT 1.0 {tablet} suspended Zofran 4 MG eCW1 ([facility]) 4 mg 12/16/2020 12:00:00 AM EDT tablet 9 TAKE ONE TABLET BY MOUTH EVERY DAY TAKE ONE TABLET BY MOUTH EVERY DAY SOLD: 12/16/2020 [facility] Promethazine Hydrochloride 25 MG Oral Tablet Promethaz ine HCl 25 MG Promethazine HCl 25 MG 12/16/2020 12:00:00 AM EDT 1.0 {tablet_as_needed} suspended Promethazine HCl 25 MG eCW1 ([facility]) 4 mg 12/16/2020 12:00:00 AM EDT tablet 9 TAKE ONE TABLET BY MOUTH EVERY DAY TAKE ONE TABLET BY MOUTH EVERY DAY SOLD: 01/01/2021 [facility] Ondansetron 4 MG Oral Tablet [Zofran] Zofran 4 MG Zofran 4 M G 12/16/2020 12:00:00 AM EDT 1.0 {tablet} suspended Zofran 4 MG eCW1 ([facility]) Promethazine Hydrochloride 25 MG Oral Tablet Promethaz ine HCl 25 MG Promethazine HCl 25 MG 12/16/2020 12:00:00 AM EDT 1.0 {tablet_as_needed} suspended Promethazine HCl 25 MG eCW1 ([facility]) Promethazine Hydrochloride 25 MG Oral Tablet Promethaz ine HCl 25 MG Promethazine HCl 25 MG 12/16/2020 12:00:00 AM EDT 1.0 {tablet_as_needed} active Promethazine HCl 25 MG eCW1 ([facility]) Promethazine Hydrochloride 25 MG Oral Tablet Promethaz ine HCl 25 MG Promethazine HCl 25 MG 12/16/2020 12:00:00 AM EDT 1.0 {tablet_as_needed} suspended Promethazine HCl 25 MG eCW1 ([facility]) Ondansetron 4 MG Oral Tablet [Zofran] Zofran 4 MG Zofran 4 M G 12/16/2020 12:00:00 AM EDT 1.0 {tablet} suspended Zofran 4 MG eCW1 ([facility]) Promethazine Hydrochloride 25 MG Oral Tablet Promethaz ine HCl 25 MG Promethazine HCl 25 MG 12/16/2020 12:00:00 AM EDT 1.0 {tablet_as_needed} suspended Promethazine HCl 25 MG eCW1 ([facility]) Promethazine Hydrochloride 25 MG Oral Tablet Promethaz ine HCl 25 MG Promethazine HCl 25 MG 12/16/2020 12:00:00 AM EDT 1.0 {tablet_as_needed} suspended Promethazine HCl 25 MG eCW1 ([facility]) Ondansetron 4 MG Oral Tablet [Zofran] Zofran 4 MG Zofran 4 M G 12/16/2020 12:00:00 AM EDT 1.0 {tablet} suspended Zofran 4 MG eCW1 ([facility]) Ondansetron 4 MG Oral Tablet [Zofran] Zofran 4 MG Zofran 4 M G 12/16/2020 12:00:00 AM EDT 1.0 {tablet} suspended eCW1 ([facility]) Promethazine Hydrochloride 25 MG Oral Tablet Promethaz ine HCl 25 MG Promethazine HCl 25 MG 12/16/2020 12:00:00 AM EDT 1.0 {tablet_as_needed} suspended eCW1 ([facility]) Promethazine Hydrochloride 25 MG Oral Tablet Promethaz ine HCl 25 MG Promethazine HCl 25 MG 12/16/2020 12:00:00 AM EDT 1.0 {tablet_as_needed} active Promethazine HCl 25 MG eCW1 ([facility]) Ondansetron 4 MG Oral Tablet [Zofran] Zofran 4 MG Zofran 4 M G 12/16/2020 12:00:00 AM EDT 1.0 {tablet} suspended Zofran 4 MG [facility]CW1 ([facility] [facility] 4 mg 12/16/2020 12:00:00 AM EDT tablet 9 TAKE ONE TABLET BY MOUTH EVERY DAY TAKE ONE TABLET BY MOUTH EVERY DAY SOLD: 01/11/2021 [facility] Ondansetron 4 MG Oral Tablet [Zofran] Zofran 4 MG Zofran 4 M G 12/16/2020 12:00:00 AM EDT 1.0 {tablet} active Zo rashawn 4 MG eCW1 ([facility]) Promethazine Hydrochloride 25 MG Oral Tablet Promethaz ine HCl 25 MG Promethazine HCl 25 MG 12/16/2020 12:00:00 AM EDT 1.0 {tablet_as_needed} active Promethazine HCl 25 MG eCW1 ([facility]) Promethazine Hydrochloride 25 MG Oral Tablet PROMETHAZINE HC L 12/16/2020 12:00:00 AM EDT tablet 60 TAKE ONE TABLET BY MOUTH EVERY 12 HOURS NEEDED TAKE ONE TABLET BY MOUTH EVERY 12 HOURS NEEDED SOLD: 12/16/2020 [facility] Promethazine Hydrochloride 25 MG Oral Tablet Promethaz ine HCl 25 MG Promethazine HCl 25 MG 12/16/2020 12:00:00 AM EDT 1.0 {tablet_as_needed} active Promethazine HCl 25 MG eCW1 ([facility]) Ondansetron 4 MG Oral Tablet [Zofran] Zofran 4 MG Zofran 4 M G 12/16/2020 12:00:00 AM EDT 1.0 {tablet} active Zo rashawn 4 MG eCW1 ([facility]) 4 mg 12/16/2020 12:00:00 AM EDT tablet 9 TAKE ONE TABLET BY MOUTH EVERY DAY TAKE ONE TABLET BY MOUTH EVERY DAY SOLD: 01/19/2021 [facility] Ondansetron 4 MG Oral Tablet [Zofran] Zofran 4 MG Zofran 4 M G 12/16/2020 12:00:00 AM EDT 1.0 {tablet} suspended Zofran 4 MG eCW1 ([facility]) Promethazine Hydrochloride 25 MG Oral Tablet Promethaz ine HCl 25 MG Promethazine HCl 25 MG 12/16/2020 12:00:00 AM EDT 1.0 {tablet_as_needed} suspended Promethazine HCl 25 MG eCW1 ([facility]) Ondansetron 4 MG Oral Tablet [Zofran] Zofran 4 MG Zofran 4 M G 12/16/2020 12:00:00 AM EDT 1.0 {tablet} active Zo rashawn 4 MG eCW1 ([facility]) Ondansetron 4 MG Oral Tablet [Zofran] Zofran 4 MG Zofran 4 M G 12/16/2020 12:00:00 AM EDT 1.0 {tablet} active Zo rashawn 4 MG eCW1 ([facility]) Ondansetron 4 MG Oral Tablet [Zofran] Zofran 4 MG Zofran 4 M G 12/16/2020 12:00:00 AM EDT 1.0 {tablet} suspended Zofran 4 MG eCW1 ([facility]) Promethazine Hydrochloride 25 MG Oral Tablet Promethaz ine HCl 25 MG Promethazine HCl 25 MG 12/16/2020 12:00:00 AM EDT 1.0 {tablet_as_needed} suspended Promethazine HCl 25 MG eCW1 ([facility]) 37.5 mg 10/19/2020 12:00:00 AM EDT capsule,extended releas e 24hr 30 TAKE ONE CAPSULE BY MOUTH EVERY DAY MAXIMUM DAILY DOSE = 1 CAPSULE TAKE ONE CAPSULE BY MOUTH EVERY DAY MAXIMUM DAILY DOSE = 1 CAPSULE SOLD: 11/19/2020 [facility] 37.5 mg 10/19/2020 12:00:00 AM EDT capsule,extended releas e 24hr 30 TAKE ONE CAPSULE BY MOUTH EVERY DAY MAXIMUM DAILY DOSE = 1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
[2021-05-08 10:27] LABS: ALBUMIN 2.8 GM/DL (3.2-5.2); ALT/SGPT 28 U/L (12-78); BILIRUBIN,TOTAL 0.1 MG/DL (0.2-1.0); BLOOD UREA NITROGEN 9 MG/DL (7-18); CALCIUM LEVEL 8.8 MG/DL (8.5-10.1); CARBON DIOXIDE LEVEL 26 MEQ/L (21-32); CHLORIDE LEVEL 108 MEQ/L (98-107); CREATININE FOR GFR 0.51 MG/DL (0.55-1.30); GLOMERULAR FILTRATION RATE > 60.0 (>60); GLUCOSE, FASTING 88 MG/DL (70-100); POTASSIUM SERUM 3.9 MEQ/L (3.5-5.1); SODIUM LEVEL 140 MEQ/L (136-145); TOTAL PROTEIN 6.3 GM/DL (6.4-8.2)
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
[2021-05-08] MEDS ORDERED: MULTTAB20 PO (12:25)
[2021-05-08] MEDS ORDERED: EFFE37.5 PO (12:25)
== END 2021-05-08 12:07 | disposition admitted as inpatient to this hospital (09) ==
LOC: EDBD 08:26 → M ED 08:26
DX: S92.251A Displaced fracture of navicular [scaphoid] of right foot, initial encounter for closed fracture (principal); S62.316A Displaced fracture of base of fifth metacarpal bone, right hand, initial encounter for closed fracture; V43.52XA Car driver injured in collision with other type car in traffic accident, initial encounter; Y92.9 Unspecified place or not applicable; Y93.9 Activity, unspecified; Y99.9 Unspecified external cause status; Z3A.27 27 weeks gestation of pregnancy; O09.513 Supervision of elderly primigravida, third trimester

== ENCOUNTER 2021-05-08 12:10 | Outpatient (CLI) | payer OTHER ==
[2021-05-08] VITALS (7 sets, daily range): BP systolic 84–128; BP diastolic 46–74
[~2021-05-08] VITALS: Ht 160 cm; Wt 63.6 kg
[2021-05-08] MEDS ORDERED: EFFE37.5 PO (12:25)
[2021-05-08] MEDS ORDERED: MULTTAB20 PO (12:25)
[2021-05-08] MEDS ORDERED: LACTATED RINGER'S 1000 ML IV STA (15:43)
[2021-05-08] MEDS: ACETAMINOPHEN 500 MG TAB PO PRN (18:50)
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
[2021-05-09] MEDS ORDERED: PROMETHAZINE INJ 25 MG/ML VIAL (J2550) IV ONE (00:35)
[2021-05-09 02:52] VITALS: BP 110/70
[2021-05-09 05:23] LABS: HEMATOCRIT 32.4 % (36.0-47.0); HEMOGLOBIN 10.9 g/dl (12.0-15.5); MEAN CORPUSCULAR HEMOGLOBIN 30.9 pg (27.0-33.0); MEAN CORPUSCULAR HGB CONC 33.6 g/dl (32.0-36.5); MEAN CORPUSCULAR VOLUME 91.8 fl (80.0-96.0); PLATELET COUNT, AUTOMATED 154 10^3/uL (150-450); RED BLOOD COUNT 3.53 10^6/uL (4.00-5.40); WHITE BLOOD COUNT 12.5 10^3/uL (4.0-10.0)
[2021-05-09] MEDS: ACETAMINOPHEN 500 MG TAB PO PRN (06:06)
[2021-05-09 06:29] VITALS: BP 116/78
[2021-05-09 07:12] VITALS: BP 112/69
== END 2021-05-09 08:51 | disposition home or self-care (01) ==
LOC: M LDO 12:10
PROVIDERS: ATTEND Obstetrics & Gynecology
DX: O26.893 Other specified pregnancy related conditions, third trimester (principal); R25.2 Cramp and spasm; S62.201D Unspecified fracture of first metacarpal bone, right hand, subsequent encounter for fracture with routine healing; S62.001D Unspecified fracture of navicular [scaphoid] bone of right wrist, subsequent encounter for fracture with routine healing; Y92.9 Unspecified place or not applicable; Y93.9 Activity, unspecified; Y99.9 Unspecified external cause status; Z3A.27 27 weeks gestation of pregnancy; O9A.213 Injury, poisoning and certain other consequences of external causes complicating pregnancy, third trimester
CPT/HCPCS: 36415; 59025; 85027; 85384; 85460; 96374; G0378; G0463

== ENCOUNTER 2021-06-01 21:13 | Outpatient (CLI) | payer OTHER ==
[~2021-06-01] VITALS: Ht 154.9 cm; Wt 64.6 kg
[~2021-06-01 21:13] MED LIST changes: +EFFE37.5 PO; +MULTTAB20 PO
[2021-06-01 21:33] VITALS: BP 123/91
[2021-06-01] MEDS ORDERED: LR 800 ML IV ONE (21:55)
[2021-06-01] MEDS ORDERED: LR 1,000 ML IV SCH (21:55)
[2021-06-01 22:55] VITALS: BP 143/93
[2021-06-01 23:07] VITALS: BP 138/86
[2021-06-01 23:26] LABS: BASO # 0.1 10^3/uL (0.0-0.2); BASO % 0.4 % (0.0-1.0); EOS # 0.1 10^3/uL (0.0-0.5); EOS % 0.6 % (0.0-3.0); HEMATOCRIT 36.8 % (36.0-47.0); HEMOGLOBIN 13.2 g/dl (12.0-15.5); LYMPH # 2.4 10^3/uL (1.5-5.0); LYMPH % 19.6 % (24.0-44.0); MEAN CORPUSCULAR HGB CONC 35.9 g/dl (32.0-36.5); MEAN CORPUSCULAR VOLUME 89.1 fl (80.0-96.0); MONO # 0.8 10^3/uL (0.0-0.8); MONO % 6.5 % (2.0-8.0); NEUTROPHILS # 8.7 10^3/uL (1.5-8.5); NEUTROPHILS % 72.3 % (36.0-66.0); PLATELET COUNT, AUTOMATED 190 10^3/uL (150-450); RED BLOOD COUNT 4.13 10^6/uL (4.00-5.40); WHITE BLOOD COUNT 12.1 10^3/uL (4.0-10.0)
[2021-06-01 23:51] LABS: ALBUMIN 2.9 GM/DL (3.2-5.2); ALT/SGPT 23 U/L (12-78); BILIRUBIN,TOTAL 0.2 MG/DL (0.2-1.0); BLOOD UREA NITROGEN 11 MG/DL (7-18); CALCIUM LEVEL 9.1 MG/DL (8.5-10.1); CARBON DIOXIDE LEVEL 24 MEQ/L (21-32); CHLORIDE LEVEL 106 MEQ/L (98-107); CREATININE FOR GFR 0.51 MG/DL (0.55-1.30); GLOMERULAR FILTRATION RATE > 60.0 (>60); GLUCOSE, FASTING 80 MG/DL (70-100); POTASSIUM SERUM 3.8 MEQ/L (3.5-5.1); SODIUM LEVEL 139 MEQ/L (136-145)
[2021-06-02 00:03] VITALS: BP 126/73
[2021-06-02 00:12] VITALS: BP 128/68
[2021-06-02 00:23] VITALS: BP 123/66
== END 2021-06-02 00:58 | disposition home or self-care (01) ==
LOC: M LDO 21:13
PROVIDERS: ATTEND Obstetrics & Gynecology
DX: O26.893 Other specified pregnancy related conditions, third trimester (principal); R10.30 Lower abdominal pain, unspecified; Z3A.30 30 weeks gestation of pregnancy
CPT/HCPCS: 59025; 80053; 81001; 85025; G0378; G0463

== ENCOUNTER → 2021-06-02 | Outpatient (CLI) | payer OTHER ==
[~2021-06-02] MED LIST changes: +IBUP80TA PO; +OXYC1TAB23 PO
== END ==
LOC: M SOG 11:45
PROVIDERS: ATTEND Orthopaedic Surgery Sports Medicine
DX: S62.306D Unspecified fracture of fifth metacarpal bone, right hand, subsequent encounter for fracture with routine healing (principal); S92.251D Displaced fracture of navicular [scaphoid] of right foot, subsequent encounter for fracture with routine healing; W18.30XD Fall on same level, unspecified, subsequent encounter; Y92.009 Unspecified place in unspecified non-institutional (private) residence as the place of occurrence of the external cause

== ENCOUNTER → 2021-07-16 | Outpatient (REF) | payer OTHER ==
[~2021-07-16] MED LIST changes: -IBUP80TA PO; -OXYC1TAB23 PO
== END ==
LOC: M SFHCWAGY 16:53
PROVIDERS: ATTEND Obstetrics & Gynecology
DX: O09.513 Supervision of elderly primigravida, third trimester (principal)

== ENCOUNTER 2021-07-29 00:27 | Inpatient (IN) | payer OTHER ==
[2021-07-29] VITALS (54 sets, daily range): BP systolic 92–145; BP diastolic 53–101
[~2021-07-29] VITALS: Ht 160 cm; Wt 68.9 kg
[2021-07-29 01:40] LABS: HEMATOCRIT 36.6 % (36.0-47.0); HEMOGLOBIN 12.6 g/dl (12.0-15.5); MEAN CORPUSCULAR HEMOGLOBIN 30.9 pg (27.0-33.0); MEAN CORPUSCULAR HGB CONC 34.4 g/dl (32.0-36.5); MEAN CORPUSCULAR VOLUME 89.7 fl (80.0-96.0); PLATELET COUNT, AUTOMATED 155 10^3/uL (150-450); RED BLOOD COUNT 4.08 10^6/uL (4.00-5.40)
[2021-07-29] MEDS ORDERED: HOME MED LIST COMPLETE! XX SCH (02:00)
[2021-07-29] MEDS ORDERED: OXYTOCIN DRIP 30 UNITS in IV 1 EA IV SCH ×2 (06:40→19:20)
[2021-07-29] MEDS ORDERED: FENTANYL 2MCG/ML ROPIVACAINE 0.2% IN 0.9% NACL 100ML IVBAG As Ordered ONE (08:40)
[2021-07-29] MEDS ORDERED: FENTANYL/ROPIVACAINE/NACL BAG 100 ML EPIDURAL SCH (09:30)
[2021-07-29] MEDS ORDERED: EPIDURAL/PCA KEYS XX PRN (09:30)
[2021-07-29] MEDS ORDERED: EPIDURAL COMMENT XX SCH (09:30)
[2021-07-29] MEDS ORDERED: NALOXONE INJ 0.4MG/1ML VIAL (J2310 PER 1MG) IV PRN ×3 (09:30→18:37)
[2021-07-29] MEDS ORDERED: LACTATED RINGER'S 1000 ML IV PRN (09:30)
[2021-07-29] MEDS ORDERED: diphenhydrAMINE 50MG/ML VIAL (J1200) IV PRN ×2 (09:30→18:37)
[2021-07-29] MEDS ORDERED: ONDANSETRON 4MG/2ML VIAL IV PRN ×3 (09:30→19:45)
[2021-07-29] MEDS ORDERED: REFRIGERATOR IV KEYS XX PRN (09:30)
[2021-07-29] MEDS: LR 1,000 ML IV SCH ×3 (10:19→23:36)
[2021-07-29] MEDS: ePHEDrine SULFATE 25 MG/5 ML(5MG/ML) SYRINGE IV PRN ×2 (10:19→10:21)
[2021-07-29] MEDS ORDERED: ceFAZolin 2 GM/D5W 50 ML IV BAG (J0690 PER 500MG) As Ordered ONE (17:15)
[2021-07-29] MEDS ORDERED: AZITHROMYCIN INJ 500MG VIAL As Ordered ONE (17:16)
[2021-07-29] MEDS ORDERED: BICITRA 30ML SOLN UDC As Ordered ONE (17:16)
[2021-07-29] MEDS ORDERED: AZITHROMYCIN INJ 500 MG, VIAL MATE ADAPTER 1 EACH in NS 250 ML IV ONE (17:20)
[2021-07-29] MEDS ORDERED: BICITRA 30ML SOLN UDC PO ONE (17:20)
[2021-07-29] MEDS ORDERED: ceFAZolin SOD 2 GM in IV 1 EA IV ONE (17:20)
[2021-07-29] MEDS ORDERED: LIDOCAINE 2% W/EPINEPHRINE 20ML VIAL **PRES FREE As Ordered ONE (17:57)
[2021-07-29] MEDS ORDERED: OXYTOCIN INJ 10 UNITS/ML VIAL (J2590) As Ordered ONE (18:27)
[2021-07-29] MEDS ORDERED: PHENYLephrine 500MCG 5ML (100MCG/ML) SYRINGE As Ordered ONE (18:28)
[2021-07-29] MEDS ORDERED: NALBUPHINE HCL 10 MG/ML AMP (J2300) IV PRN (18:37)
[2021-07-29] MEDS ORDERED: METOCLOPRAMIDE INJ 10MG/2ML VIAL (J2765 PER 1) IV PRN (18:37)
[2021-07-29] MEDS ORDERED: MORPHINE PRES-FREE INJ 10 MG/10 ML VIAL (J2274) As Ordered ONE (18:37)
[2021-07-29 18:41] LABS: CORD GAS ABE A -3.1; CORD GAS HCO3 A 23.1 MEQ/L; CORD GAS O2 SAT A 76.7 %; CORD GAS PCO2 A 44.9 mmHg; CORD GAS PH A 7.329 UNITS; CORD GAS PO2 A 32.7 mmHg; CORD GAS SBC A 21.3 MEQ/L; CORD GAS TCO2 A 24.5 MEQ/L
[2021-07-29 18:43] LABS: CORD GAS ABE V -3.2; CORD GAS HCO3 V 22.8 MEQ/L; CORD GAS O2 SAT V 77.7 %; CORD GAS PCO2 V 44.3 mmHg; CORD GAS PH V 7.33 UNITS; CORD GAS PO2 V 32.6 mmHg; CORD GAS SBC V 21.2 MEQ/L; CORD GAS TCO2 V 24.2 MEQ/L
[2021-07-29] MEDS ORDERED: SIMETHICONE 80MG CHEW TAB PO PRN (19:20)
[2021-07-29] MEDS ORDERED: PERCOCET 5MG/325MG TAB PO PRN (19:20)
[2021-07-29] MEDS ORDERED: MEASLES,MUMPS,RUBELLA VACCINE INJ (MMR-II) (90707) SC SCH (19:20)
[2021-07-29] MEDS ORDERED: RHOGAM 300 MCG (1500 IU) INJ (J2790) IM SCH (19:20)
[2021-07-29] MEDS ORDERED: DOCUSATE SODIUM 100MG CAPSULE PO PRN (19:20)
[2021-07-29] MEDS ORDERED: oxyCODONE 5MG TAB PO PRN (19:45)
[2021-07-29] MEDS ORDERED: LR 1,000 ML IV SCH (19:45)
[2021-07-29] MEDS ORDERED: fentaNYL 100 MCG/2 ML INJECTION IV PRN (19:45)
[2021-07-29] MEDS ORDERED: KETOROLAC 30 MG/ML 1ML VIAL As Ordered ONE (20:17)
[2021-07-29] MEDS: KETOROLAC 30 MG/ML 1ML VIAL IV SCH (20:23)
[2021-07-29] MEDS ORDERED: fentaNYL 100 MCG/2 ML INJECTION As Ordered ONE (20:24)
[2021-07-30 00:20] VITALS: BP 120/76
[2021-07-30] MEDS: KETOROLAC 30 MG/ML 1ML VIAL IV SCH ×3 (01:56→14:53)
[2021-07-30 04:20] VITALS: BP 111/61
[2021-07-30] MEDS: LR 1,000 ML IV SCH ×3 (05:05→18:42)
[2021-07-30] MEDS ORDERED: IBUP80TA PO (07:00)
[2021-07-30] MEDS ORDERED: OXYC1TAB23 PO (07:00)
[2021-07-30] MEDS: PRENATAL VITAMINS CHEWABLE TABLET PO SCH (08:08)
[2021-07-30 09:48] LABS: HEMATOCRIT 26.2 % (36.0-47.0); MEAN CORPUSCULAR HEMOGLOBIN 31.3 pg (27.0-33.0); MEAN CORPUSCULAR HGB CONC 34.4 g/dl (32.0-36.5); PLATELET COUNT, AUTOMATED 126 10^3/uL (150-450); RED BLOOD COUNT 2.88 10^6/uL (4.00-5.40); WHITE BLOOD COUNT 11.9 10^3/uL (4.0-10.0)
[2021-07-30 10:00] VITALS: BP 119/58
[2021-07-30 14:00] VITALS: BP 122/70
[2021-07-30 18:00] VITALS: BP 126/74
[2021-07-30] MEDS: IBUPROFEN 800 MG TAB PO SCH (21:19)
[2021-07-30 22:14] VITALS: BP 133/73
[2021-07-31] MEDS: PERCOCET 5MG/325MG TAB PO PRN ×3 (00:32→22:04)
[2021-07-31 02:16] VITALS: BP 117/72
[2021-07-31] MEDS: IBUPROFEN 800 MG TAB PO SCH ×3 (05:04→22:03)
[2021-07-31 06:04] VITALS: BP 118/78
[2021-07-31] MEDS: PRENATAL VITAMINS CHEWABLE TABLET PO SCH (07:47)
[2021-07-31 08:16] VITALS: BP 118/78
[2021-07-31 17:48] VITALS: BP 115/70
[2021-08-01] MEDS: IBUPROFEN 800 MG TAB PO SCH ×2 (05:08→14:15)
[2021-08-01 06:00] VITALS: BP 136/96
[2021-08-01] MEDS: PRENATAL VITAMINS CHEWABLE TABLET PO SCH (10:10)
[2021-08-01] MEDS: PERCOCET 5MG/325MG TAB PO PRN (10:42)
[2021-08-01] MEDS ORDERED: COLA100C5 PO (17:22)
== END 2021-08-01 17:55 | disposition home or self-care (01) | DRG 788 ==
LOC: M LDO 00:27 → M LDI 01:09 → M OBS 21:21
PROVIDERS: ADMIT Specialist; ATTEND Specialist
PROC: 10D00Z1 Extraction of Products of Conception, Low, Open Approach (ICD-10-PCS; principal; 2021-07-29 18:16)
DX: O76 Abnormality in fetal heart rate and rhythm complicating labor and delivery (principal); Z3A.38 38 weeks gestation of pregnancy; Z20.822 Contact with and (suspected) exposure to COVID-19; O69.1XX0 Labor and delivery complicated by cord around neck, with compression, not applicable or unspecified; Z37.0 Single live birth; N80.9 Endometriosis, unspecified; O26.893 Other specified pregnancy related conditions, third trimester

== ENCOUNTER → 2021-11-27 | Outpatient (CLI) | payer OTHER ==
[~2021-11-27] MED LIST changes: +BUPR-71 PO; -BUPR150T5 PO; +COLA100C5 PO; +IBUP80TA PO; +OXYC1TAB23 PO
[2021-11-27 14:45] LABS: FREE T4 0.92 NG/DL (0.76-1.46); THYROID STIMULATING HORMONE 1.31 uIU/ML (0.358-3.740)
== END ==
LOC: M PLALAB 12:22
PROVIDERS: ATTEND Obstetrics & Gynecology
DX: L65.0 Telogen effluvium (principal)

== ENCOUNTER → 2021-12-02 | Outpatient (CLI) | payer OTHER | LOC: M WHC 11:58 | PROVIDERS: ATTEND Obstetrics & Gynecology | DX: Z39.2 Encounter for routine postpartum follow-up (principal) ==

== ENCOUNTER → 2022-03-04 | Outpatient (CLI) | payer OTHER | LOC: M SOG 14:47 | PROVIDERS: ATTEND Orthopaedic Surgery | DX: M25.532 Pain in left wrist (principal) ==

== ENCOUNTER → 2022-06-12 | Outpatient (REF) | payer OTHER | LOC: M SFHCWAGY 10:10 | PROVIDERS: ATTEND Advanced Practice Midwife | DX: Z12.4 Encounter for screening for malignant neoplasm of cervix (principal); Z77.9 Other contact with and (suspected) exposures hazardous to health | CPT/HCPCS: 87624; G0123 ==

== ENCOUNTER → 2022-06-17 | Outpatient (CLI) | payer OTHER ==
[2022-06-17 10:44] LABS: HEMATOCRIT 37.4 % (36.0-47.0); HEMOGLOBIN 12.5 g/dl (12.0-15.5); MEAN CORPUSCULAR HEMOGLOBIN 30.5 pg (27.0-33.0); MEAN CORPUSCULAR HGB CONC 33.4 g/dl (32.0-36.5); MEAN CORPUSCULAR VOLUME 91.2 fl (80.0-96.0); PLATELET COUNT, AUTOMATED 187 10^3/uL (150-450); WHITE BLOOD COUNT 6.5 10^3/uL (4.0-10.0)
[2022-06-17 11:03] LABS: LDL CHOLESTEROL 95.8 MG/DL (<100)
[2022-06-17 11:07] LABS: THYROID STIMULATING HORMONE 2.331 uIU/ML (0.55-4.78)
[2022-06-17 11:11] LABS: TOTAL 25(OH) VITAMIN D 57.3 NG/ML (20.0-100.0)
== END ==
LOC: M PLALAB 08:13
PROVIDERS: ATTEND Advanced Practice Midwife
DX: R53.83 Other fatigue (principal)

== ENCOUNTER → 2022-11-04 | Outpatient (CLI) | payer OTHER | LOC: M WHC 13:06 | PROVIDERS: ATTEND Advanced Practice Midwife | DX: Z12.31 Encounter for screening mammogram for malignant neoplasm of breast (principal) ==

== ENCOUNTER → 2023-01-08 | Outpatient (CLI) | payer OTHER | LOC: M WHC 14:09 | PROVIDERS: ATTEND Obstetrics & Gynecology | DX: R10.2 Pelvic and perineal pain (principal) ==

== ENCOUNTER → 2023-08-02 | Outpatient (CLI) | payer OTHER ==
[~2023-08-02] MED LIST changes: -EFFE37.5 PO; +EFFE37.52 PO
[2023-08-02 11:01] LABS: BASO % 0.5 % (0.0-1.0); EOS # 0.1 10^3/uL (0.0-0.5); EOS % 1.2 % (0.0-3.0); HEMATOCRIT 37.7 % (36.0-47.0); HEMOGLOBIN 12.6 g/dl (12.0-15.5); LYMPH # 1.3 10^3/uL (1.5-5.0); LYMPH % 30.3 % (24.0-44.0); MEAN CORPUSCULAR HEMOGLOBIN 30.4 pg (27.0-33.0); MEAN CORPUSCULAR HGB CONC 33.4 g/dl (32.0-36.5); MEAN CORPUSCULAR VOLUME 90.8 fl (80.0-96.0); MONO # 0.4 10^3/uL (0.0-0.8); MONO % 8.6 % (2.0-8.0); NEUTROPHILS # 2.6 10^3/uL (1.5-8.5); NEUTROPHILS % 59.2 % (36.0-66.0); PLATELET COUNT, AUTOMATED 107 10^3/uL (150-450); RED BLOOD COUNT 4.15 10^6/uL (4.00-5.40); WHITE BLOOD COUNT 4.3 10^3/uL (4.0-10.0)
[2023-08-02 11:35] LABS: ALBUMIN 3.9 G/DL (3.2-5.2); ALKALINE PHOSPHATASE 38 U/L (46-116); ALT/SGPT 16 U/L (7.0-40); AST/SGOT 14 U/L (<34); BILIRUBIN,TOTAL 0.4 MG/DL (0.3-1.2); BLOOD UREA NITROGEN 10 MG/DL (9-23); CALCIUM LEVEL 9.3 MG/DL (8.5-10.1); CARBON DIOXIDE LEVEL 30 MMOL/L (20-31); CHLORIDE LEVEL 109 MMOL/L (98-107); CREATININE FOR GFR 0.69 MG/DL (0.55-1.30); GLOMERULAR FILTRATION RATE > 60.0 (>58); GLUCOSE, FASTING 80 MG/DL (60-100); POTASSIUM SERUM 4.1 MMOL/L (3.5-5.1); SODIUM LEVEL 141 MMOL/L (136-145); TOTAL PROTEIN 6.9 G/DL (5.7-8.2)
== END ==
LOC: M PLALAB 08:57
PROVIDERS: ATTEND Nurse Practitioner Family
DX: R19.7 Diarrhea, unspecified (principal)

== ENCOUNTER → 2023-08-03 | Outpatient (REF) | payer OTHER | LOC: M LAB REF 10:52 | PROVIDERS: ATTEND Nurse Practitioner Family | DX: R19.7 Diarrhea, unspecified (principal) ==

== ENCOUNTER → 2023-11-15 | Outpatient (REF) | payer OTHER | LOC: M SFHCWAGY 13:18 | PROVIDERS: ATTEND Obstetrics & Gynecology | DX: Z12.4 Encounter for screening for malignant neoplasm of cervix (principal); Z01.419 Encounter for gynecological examination (general) (routine) without abnormal findings; Z77.9 Other contact with and (suspected) exposures hazardous to health ==

== ENCOUNTER → 2023-11-15 | Outpatient (CLI) | payer OTHER | LOC: M WHC 08:10 | PROVIDERS: ATTEND Obstetrics & Gynecology | DX: Z12.31 Encounter for screening mammogram for malignant neoplasm of breast (principal) ==

== ENCOUNTER → 2025-01-04 | Outpatient (CLI) | payer OTHER ==
[2025-01-04 10:45] LABS: ALT/SGPT 19 U/L (7.0-40); AST/SGOT 18 U/L (<34); CALCIUM LEVEL 8.8 MG/DL (8.5-10.1); CARBON DIOXIDE LEVEL 29 MMOL/L (20-31); CHLORIDE LEVEL 105 MMOL/L (98-107); CHOLESTEROL LEVEL 144 MG/DL (<200); CHOLESTEROL RISK RATIO 2.92 (<5); CREATININE FOR GFR 0.73 MG/DL (0.55-1.30); GLOMERULAR FILTRATION RATE > 90.0 (>58); LDL CHOLESTEROL 81.7 MG/DL (<100); NON-HDL-C 94.7 MG/DL; POTASSIUM SERUM 4.4 MMOL/L (3.5-5.1); SODIUM LEVEL 141 MMOL/L (136-145); TRIGLYCERIDES LEVEL 65 MG/DL (<150)
[2025-01-04 10:47] LABS: FREE T4 1.07 NG/DL (0.89-1.76)
[2025-01-04 10:48] LABS: THYROID PEROXIDASE ANTIBODY < 28.0 U/ML (<60.0)
[2025-01-04 11:08] LABS: BASO # 0.0 10^3/uL (0.0-0.2); BASO % 0.6 % (0.0-1.0); EOS # 0.1 10^3/uL (0.0-0.5); EOS % 2.2 % (0.0-3.0); LYMPH # 1.4 10^3/uL (1.5-5.0); LYMPH % 29.9 % (24.0-44.0); MONO # 0.4 10^3/uL (0.0-0.8); MONO % 8.4 % (2.0-8.0); NEUTROPHILS # 2.7 10^3/uL (1.5-8.5); NEUTROPHILS % 58.7 % (36.0-66.0); PLATELET COUNT, AUTOMATED 162 10^3/uL (150-450)
[2025-01-04 11:50] LABS: ESTIMATED AVERAGE GLUCOSE 105.0 MG/DL (60-110)
== END ==
LOC: M PLALAB 08:33
PROVIDERS: ATTEND Registered Nurse
DX: Z00.00 Encounter for general adult medical examination without abnormal findings (principal)

== ENCOUNTER → 2025-01-09 | Outpatient (CLI) | payer OTHER | LOC: M WHC 08:41 | PROVIDERS: ATTEND Registered Nurse | DX: R92.2 Inconclusive mammogram (principal); R92.333 Mammographic heterogeneous density, bilateral breasts ==

== ENCOUNTER → 2025-01-24 | Outpatient (CLI) | payer OTHER | LOC: M WHC 13:25 | PROVIDERS: ATTEND Registered Nurse | DX: N63.11 Unspecified lump in the right breast, upper outer quadrant (principal); R92.8 Other abnormal and inconclusive findings on diagnostic imaging of breast; R92.333 Mammographic heterogeneous density, bilateral breasts | CPT/HCPCS: 76642; 77066; G0279 ==

== ENCOUNTER → 2025-01-31 | Outpatient (CLI) | payer OTHER ==
[2025-01-31 09:45] VITALS: TEMP 98.5
[2025-01-31 11:22] VITALS: BP 106/76; O2SAT 99
== END ==
LOC: M WHCPRO 09:43
PROVIDERS: ATTEND Surgery
DX: C50.411 Malignant neoplasm of upper-outer quadrant of right female breast (principal); N63.11 Unspecified lump in the right breast, upper outer quadrant

== ENCOUNTER → 2025-02-16 | Outpatient (CLI) | payer OTHER ==
[~2025-02-16] MED LIST changes: +PROHANCE 279.3MG/ML 15ML VIAL ONE
== END ==
LOC: M PLAIMG 11:34
PROVIDERS: ATTEND Surgery
DX: C50.111 Malignant neoplasm of central portion of right female breast (principal)
CPT/HCPCS: A9576; C8908

== ENCOUNTER → 2025-02-26 | Outpatient (CLI) | payer OTHER ==
[~2025-02-26] MED LIST changes: +BUSP15TA47 PO; +CLON0.5T2 PO; +FERR325T81 PO; +LEXA1TAB PO; +MULTTAB61 PO; -PROHANCE 279.3MG/ML 15ML VIAL ONE
== END ==
LOC: M PLALAB 07:30 → M WUC 07:30
PROVIDERS: ATTEND Surgery
DX: C50.411 Malignant neoplasm of upper-outer quadrant of right female breast (principal)

== ENCOUNTER → 2025-02-28 | Outpatient (CLI) | payer OTHER ==
[2025-02-28 09:52] VITALS: BP 112/64; O2SAT 100
== END ==
LOC: M WHCPRO 09:10
PROVIDERS: ATTEND Surgery
DX: C50.111 Malignant neoplasm of central portion of right female breast (principal)
CPT/HCPCS: 19285; 77065; A4648

== ENCOUNTER 2025-03-08 07:30 | Observation (INO) | payer OTHER ==
[~2025-03-08] VITALS: Ht 160 cm; Wt 56.2 kg
[~2025-03-08 07:30] MED LIST changes: +ACETAMINOPHEN 1000MG/100ML IV BAG As Ordered ONE; +GLYCOPYRROLATE INJ 0.2 MG/ML 2 ML VIAL As Ordered ONE; +KETOROLAC 30 MG/ML 1 ML VIAL As Ordered ONE; +LIDOCAINE 2% 100 MG/5 ML SDV (FOR ANES.) As Ordered ONE; +MIDAZOLAM INJ 2 MG/2 ML VIAL As Ordered ONE; +ONDANSETRON 4MG 2ML VIAL As Ordered ONE; +dexAMETHasone 4 MG/ML 1 ML VIAL As Ordered ONE
[2025-03-08] MEDS ORDERED: ROCURONIUM BROMIDE 50MG/5ML VIAL As Ordered ONE (08:31)
[2025-03-08] MEDS: SCOPOLAMINE 1MG TRANSDERMAL PATCH TOP ONE (08:56)
[2025-03-08] MEDS: ceFAZolin SOD 2 GM IV ONCE IV ONE (09:12)
[2025-03-08] MEDS ORDERED: PHENYLephrine 500MCG 5ML (100MCG/ML) SYRINGE As Ordered ONE (09:21)
[2025-03-08] MEDS ORDERED: SUGAMMADEX SODIUM 200 MG/2 ML VIAL As Ordered ONE (10:01)
[2025-03-08] MEDS ORDERED: HYDROmorphone HCL 2 MG/ML 1 ML VIAL As Ordered ONE (10:12)
[2025-03-08] MEDS ORDERED: HYDROMORPHONE HCL 0.5 MG/0.5 ML SYRINGE IV PRN (11:25)
[2025-03-08] MEDS ORDERED: ONDANSETRON 4MG 2ML VIAL IV PRN ×2 (11:25→11:40)
[2025-03-08] MEDS ORDERED: LR 1,000 ML IV SCH (11:25)
[2025-03-08] MEDS ORDERED: ACETAMINOPHEN 325 MG TAB PO PRN (11:25)
[2025-03-08] MEDS ORDERED: MIRALAX *UNIT DOSE* 17 GM PACKET PO PRN (11:25)
[2025-03-08 12:45] VITALS: BP 115/71; TEMP 97.9; O2SAT 97
[2025-03-08] MEDS: LR 1,000 ML IV SCH (13:00)
[2025-03-08 13:15] VITALS: BP 115/74; TEMP 97.9; O2SAT 97
[2025-03-08] MEDS ORDERED: HOME MED LIST COMPLETE! XX SCH (13:55)
[2025-03-08 14:15] VITALS: BP 117/74; TEMP 98.1; O2SAT 97
[2025-03-08 15:15] VITALS: BP 118/60; TEMP 98.6; O2SAT 96
[2025-03-08 17:15] VITALS: BP 108/62; TEMP 98.6; O2SAT 97
[2025-03-08 20:00] VITALS: BP 99/61; TEMP 98.8; O2SAT 97
[2025-03-08] MEDS: DOCUSATE SODIUM 100 MG CAPSULE PO SCH (20:01)
[2025-03-09] VITALS: BP 98/60; TEMP 98.6; O2SAT 96
[2025-03-09 06:57] VITALS: BP 94/54; TEMP 98.8; O2SAT 99
[2025-03-09] MEDS ORDERED: OXYC-517 PO (09:08)
[2025-03-09 09:22] VITALS: BP 95/54; TEMP 98.6; O2SAT 98
== END 2025-03-09 10:40 | disposition home or self-care (01) ==
LOC: M SDC 07:30 → M RR INP 07:31 → M MSPAV 12:40
PROVIDERS: ADMIT Surgery; ATTEND Surgery
DX: C50.111 Malignant neoplasm of central portion of right female breast (principal); D64.9 Anemia, unspecified; F41.9 Anxiety disorder, unspecified; Z79.899 Other long term (current) drug therapy
CPT/HCPCS: 14301; 14302; 19301; 38525; 38900; 81025; 88305; 88307; A9520; J0131; J0665; J0688; J1100; J1171; J1596; J1885; J2250; J2371; J2405; J2765; J3010

== ENCOUNTER → 2025-04-17 | Outpatient (CLI) | payer OTHER ==
[~2025-04-17] MED LIST changes: -ACETAMINOPHEN 1000MG/100ML IV BAG As Ordered ONE; +ANAS1TAB2 PO; +CALC1TAB63 PO; +CLON0.5T17 PO; -GLYCOPYRROLATE INJ 0.2 MG/ML 2 ML VIAL As Ordered ONE; -KETOROLAC 30 MG/ML 1 ML VIAL As Ordered ONE; -LIDOCAINE 2% 100 MG/5 ML SDV (FOR ANES.) As Ordered ONE; -MIDAZOLAM INJ 2 MG/2 ML VIAL As Ordered ONE; -ONDANSETRON 4MG 2ML VIAL As Ordered ONE; +OXYC-517 PO; -dexAMETHasone 4 MG/ML 1 ML VIAL As Ordered ONE
== END ==
LOC: M WHC 13:31
PROVIDERS: ATTEND Student in an Organized Health Care Education/Training Program
DX: C50.919 Malignant neoplasm of unspecified site of unspecified female breast (principal); M81.0 Age-related osteoporosis without current pathological fracture

== ENCOUNTER → 2025-04-18 | Outpatient (CLI) | payer OTHER | LOC: M ONCR 08:01 | PROVIDERS: ATTEND General Practice | DX: C50.411 Malignant neoplasm of upper-outer quadrant of right female breast (principal); Z17.0 Estrogen receptor positive status [ER+]; Z17.21 Progesterone receptor positive status; Z17.32 Human epidermal growth factor receptor 2 negative status; Z79.811 Long term (current) use of aromatase inhibitors; Z79.899 Other long term (current) drug therapy; Z98.890 Other specified postprocedural states ==

== ENCOUNTER 2025-05-02 14:00 | Outpatient (RCR) | payer OTHER | END 2025-05-06 | LOC: M ONCR 14:00 | PROVIDERS: ATTEND General Practice | DX: Z51.0 Encounter for antineoplastic radiation therapy (principal); C50.412 Malignant neoplasm of upper-outer quadrant of left female breast ==

== ENCOUNTER 2025-05-29 08:49 | Outpatient (RCR) | payer OTHER | END 2025-06-06 | LOC: M ONCR 08:49 | PROVIDERS: ATTEND General Practice | DX: Z51.0 Encounter for antineoplastic radiation therapy (principal); C50.412 Malignant neoplasm of upper-outer quadrant of left female breast ==